=== PATIENT | male | born 1970 | race Caucasian/White ===

== ENCOUNTER 2017-04-21 08:33 | Emergency (ER) | payer MEDICARE ==
[2015-10-31 09:02] VITALS: BMI 22.1
[~2017-04-21 08:33] MED LIST: CELEBREX200 MG PO; COMBIVENT RESPIM4 GM INH; DURAGESIC1 PATCH .2 TRANSDERM; DURAGESIC1 PATCH .3 TRANSDERM; EFFEXOR XR150 MG PO; FLAGYL500 MG PO; IPRAT-ALBUT 0.5-3 ML UPD; LEVAQUIN750 MG PO; LISINOPRIL10 MG PO; METHOTREXATE2.5 MG PO; ROXICODONE30 MG PO; SOMA350 MG PO; STERAPRED DS 1010 MG PO; ZYPREXA5 MG PO
[2017-04-21 09:31] LABS: BASOPHILS 0.5 % (0-2); EOSINOPHILS 3.5 % (0-7); HEMATOCRIT 44.8 % (42.0-54.0); HEMOGLOBIN 15.1 g/dL (13.5-17.5); IMMATURE GRANULOCYTES 0.7 % (0-5); LYMPHOCYTES 26.5 % (15-50); MCH 32.9 pg (26.0-34.0); MCHC 33.7 g/dL (31.0-37.0); MCV 97.6 fL (80.0-100.0); MEAN PLATELET VOLUME 9.8 fL (7.4-10.4); MONOCYTES 9.6 % (2-11); NEUTROPHILS 59.2 % (40-80); RBC 4.59 10x6/uL (4.20-6.10); RDW 14.4 % (11.5-14.5); WBC 9.2 10x3/uL (4.8-10.8)
[2017-04-21 09:34] LABS: PLATELET COUNT 199 10x3/uL (130-400)
[2017-04-21 09:54] LABS: ALBUMIN 2.6 g/dL (3.4-5.0); BILIRUBIN - TOTAL 0.3 mg/dL (0.2-1.3); CALCIUM 7.8 mg/dL (8.5-10.1); CARBON DIOXIDE 17.5 mmol/L (21.0-32.0); CREATININE - SERUM 1.7 mg/dL (0.6-1.3); POTASSIUM - SERUM 3.5 mmol/L (3.5-5.1); PROTEIN - SERUM 6.2 g/dL (6.4-8.2)
[2017-04-21 10:46] LABS: APPEARANCE HAZY (CLEAR); BILIRUBIN NEGATIVE (NEGATIVE); COLOR YELLOW (YELLOW); GLUCOSE NEGATIVE (NEGATIVE); KETONE SMALL mg/dL (NEGATIVE); LEUKOCYTE ESTERASE TRACE (NEGATIVE); NITRITE NEGATIVE (NEGATIVE); PROTEIN NEGATIVE (NEGATIVE); UROBILINOGEN NORMAL (NORMAL)
[2017-04-21 10:52] LABS: AMORPHOUS SEDIMENT <1+ /lpf (NONE SEEN); BACTERIA MANY /hpf (NONE SEEN); EPITHELIAL CELLS 0-5 /hpf (0-5); GRANULAR CAST 0-5 /lpf (NONE SEEN); MUCUS >1+ /lpf (NONE SEEN)
[2017-04-21 10:53] LABS: UDS - AMPHET NEGATIVE QUAL (NEGATIVE); UDS - BARB NEGATIVE QUAL (NEGATIVE); UDS - BENZO NEGATIVE QUAL (NEGATIVE); UDS - COCAINE NEGATIVE QUAL (NEGATIVE); UDS - METH NEGATIVE QUAL (NEGATIVE); UDS - OPIATE NEGATIVE QUAL (NEGATIVE); UDS - PCP NEGATIVE QUAL (NEGATIVE); UDS - THC NEGATIVE QUAL (NEGATIVE); WAXY CAST RARE /lpf (NONE SEEN)
== END 2017-04-21 12:43 | disposition home or self-care (01) ==
LOC: D.ER 08:33
PROVIDERS: Emergency Medicine; Physician Assistant Medical
DX: K52.9 Noninfective gastroenteritis and colitis, unspecified (principal); R19.7 Diarrhea, unspecified; R10.9 Unspecified abdominal pain; R11.2 Nausea with vomiting, unspecified; F17.200 Nicotine dependence, unspecified, uncomplicated

== ENCOUNTER 2017-04-24 10:38 | Inpatient (IN) | payer MEDICARE ==
[2017-04-24] VITALS (21 sets, daily range): BP systolic 74–116; BP diastolic 52–88; BMI 21.2
[~2017-04-24] VITALS: Ht 190.5 cm; Wt 63.6 kg
--- NOTE | ~2017-04-24 | EC ---
PATIENT:VISH PRASAD DATE OF SERVICE: 04/24/17 SEX: M MEDICAL RECORD: [id number] DATE OF : [birth year] LOCATION:D. D.212 AGE OF PATIENT: 47 ADMISSION DATE: 04/24/17 REFERRING PHYSICIAN: INTERPRETING PHYSICIAN: BERYL WEEKS MD ECHOCARDIOGRAM REPORT ECHO CHARGES 4 ECHO COMPLETE CLINICAL DIAGNOSIS: CHF ? ECHOCARDIOGRAPHIC MEASUREMENTS (adult normal given) AC root (d.<3.7cm) 3.9 cm LV Septum d (<1.2 cm> 0.9 cm Valve Excursion 2.4 cm LV Septum (systole) 1.4 cm Left Atria (s.<4.0cm> 3.9 cm LVPW d(<1.2cm) 1.2 cm RV (d.<2.3cm) 2.9 cm LVPW (sytole) 2.0 cm LV diastole(<5.6CM) 7.6 cm MV E-F(>70mm/sec) cm LV systole 4.8 cm LVOT Diameter 2.3 cm MV exc.(>10mm) cm Est.ejection fraction (50-75%) % Pericardial Effusion N DOPPLER: LVIT cm/sec A 46.0 cm/sec E 98.0 cm/sec LA cm/sec RVSP 42.0 mmHg LVOT 96.0 cm/sec AOP1/2T m/s Asc. Ao 86.0 cm/sec RVOT 44.0 cm/sec RA cm/sec PA 49.0 cm/sec AV Gradient Peak 2.9 mmHg AV Mean 1.3 mmHg AV Area 3.9 cm MV Gradient Peak 3.6 mmHg MV Mean 1.3 mmHg MV Area cm COMMENTS: Youth Care Specialist: Cata REMYOE Pharmacy District Manager: 4 Dr. Weeks TAPE# PACS DATE OF SERVICE: 04/29/2017 PROCEDURE: Echocardiogram. FINDINGS: 1. The left ventricle has mild left ventricular hypertrophy. Inflow characteristics show pseudonormalization diastolic dysfunction. The overall ejection fraction is 35% to 40% with mild global hypokinesis. 2. The mitral valve shows eccentric mitral regurgitation that is in the moderate, possibly severe range. ECHOCARDIOGRAM REPORT [id number] VISH PRASAD 3. Tricuspid valve appears to be structurally normal, but there is moderate to severe tricuspid regurgitation. The RVSP is calculated between 40-50 mmHg indicating moderate pulmonary hypertension. 4. The right ventricle is tbii-ju-pcblmtvmuz dilated. 5. Aortic valve appears to possibly be bicuspid. There is no significant stenosis or regurgitation. 6. The IVC is shown to be normal in size and collapsing, indicating likely normal central venous pressures. The pericardium appears to be normal. The pulmonic valve is not well visualized. CONCLUSIONS: The patient has evidence of mild cardiomyopathy with a possible moderate to moderately severe mitral regurgitation that is eccentric in nature, mild to moderate pulmonary hypertension. TRANSINT:[id number] Voice Confirmation ID: [id number] DOCUMENT ID: [id number] 05/03/2017 Edited to correct date of service, dmm. BERYL WEEKS MD CC: [id number] DICTATION DATE: 04/30/17 0908 OUTSIDE MACHINIST APPRENTICE: 04/30/17 1130 ADM IN [facility] [address] [place] [address]
--- NOTE | ~2017-04-24 | CN ---
PATIENT NAME:VISH QUEVEDO MEDICAL RECORD: [id number] : 66 LOCATION:CAROLYNND.2308 ADMIT DATE: 04/24/17 ACCOUNT: [id number] CONSULTING PHYSICIAN: PALLAVI BOCANEGRA MD REFERRING PHYSICIAN: KERWIN HARTMAN MD DATE OF CONSULTATION: 04/28/2017 CONSULT REQUESTING PHYSICIAN: Reta Bacon MD. REASON FOR CONSULTATION: Bilateral pleural effusion, COPD. HISTORY OF PRESENT ILLNESS: Mr. Quevedo is a 47-year-old gentleman who has a history of rheumatoid arthritis, COPD and history of smoking, was admitted on the 24 of April with accidental overdose of narcotics. On arrival, the patient was hypotensive. He was also in metabolic acidosis and acute renal failure for which nephrology was consulted. He also had acute mental status changes, now more awake and alert. REVIEW OF SYSTEMS: Mainly in the history of present illness. PAST MEDICAL HISTORY: 1. COPD. 2. Rheumatoid arthritis. 3. Smoking, tobacco dependence. PAST SURGICAL HISTORY: Odontoid fracture fixation. ALLERGIES: HE IS ALLERGIC TO PENICILLIN. MEDICATIONS: He is on Levaquin, albuterol and ipratropium nebulizer. His other medications are reviewed. PERSONAL AND SOCIAL HISTORY: The patient is a current everyday smoker, almost 1 pack per day. He is a nondrinker. FAMILY HISTORY: Noncontributory. PHYSICAL EXAMINATION: GENERAL: The patient is lying comfortably in bed. He is not in acute distress. VITAL SIGNS: The blood pressure is 108/73, pulse is 98, respiration is 22-25, temperature 99.3 and SpO2 is 98% on 4 L nasal cannula. HEENT: Conjunctivae are pink, sclerae nonicteric. NECK: Supple. No JVD. CHEST: Excursion is minimal on both sides. Dullness on percussion at the bases. There are bilateral crackles. No wheezing. HEART: Rhythm regular, normal sound. No murmur. ABDOMEN: Soft. Bowel sounds present. No hepatosplenomegaly. RECTAL: Deferred. EXTREMITIES: No cyanosis, no clubbing, no pedal edema. SKIN: Warm, normal turgor. CENTRAL NERVOUS SYSTEM: The patient is awake and alert. There is no cranial nerve abnormality. IMAGING DATA: CT scan of the chest: There are bilateral infiltrates. There are emphysematous changes. There is also bilateral pulmonary fibrosis. CONSULT REPORT [id number] VISH QUEVEDO LABORAT[facility] DATA: CBC with WBC 8.5, hemoglobin 11.6, hematocrit 34.7 and the platelet count is 195. Chemistry: Sodium is 137, potassium is 3.3, BUN is 11 and creatinine 1.1. The ProBNP was 3891. ABG on admission: The pH was 7.27, pCO2 of 32.6, the pO2 was 75 and the bicarb was 15. IMPRESSION: 1. Acute hypoxic respiratory failure. 2. Chronic obstructive pulmonary disease, acute exacerbation. 3. Pulmonary fibrosis, most likely secondary to associated rheumatoid arthritis, possible methotrexate intake. The patient is not sure. 4. Congestive heart failure with elevated BNP, possible diastolic dysfunction. 5. History of hypertension. 6. Bilateral pleural effusions. 7. Acute renal failure. 8. Kidney stone. 9. Accidental narcotic overdose. 10. Metabolic acidosis. This had been improved. 11. Granulomatous disease, possible calcified granuloma associated with rheumatoid nodules, possible previous granulomatous disease. RECOMMENDATIONS: 1. Albuterol and ipratropium nebulizer. 2. Brovana and budesonide nebulizer. 3. Methylprednisolone IV. 4. The patient is going for the ureteric stent placement today. 5. We will diurese after the stent placement. 6. Proceed with thoracentesis in the morning. 7. Risk Officer to quit smoking. 8. Check the JOSE ANGEL and AUGUSTA level. Dr. Bacon, thank you for involving me in the care of Mr. Quevedo. Critical care time is 45 minutes. TRANSINT:[id number] Voice Confirmation ID: [id number] DOCUMENT ID: [id number] PALLAVI BOCANEGRA MD CC: RETA BACON MD [id number] DICTATION DATE: 04/28/17 1611 PERSONAL LINES APPRAISER: 04/28/171916 ADM IN [facility] [address] [place] [address]
[2017-04-24 12:02] LABS: BASOPHILS 0.5 % (0-2); EOSINOPHILS 7.3 % (0-7); HEMATOCRIT 34.3 % (42.0-54.0); HEMOGLOBIN 11.4 g/dL (13.5-17.5); IMMATURE GRANULOCYTES 0.3 % (0-5); LYMPHOCYTES 19.4 % (15-50); MCH 32.8 pg (26.0-34.0); MCHC 33.2 g/dL (31.0-37.0); MCV 98.6 fL (80.0-100.0); MONOCYTES 1.8 % (2-11); NEUTROPHILS 70.7 % (40-80); PLATELET COUNT 163 10x3/uL (130-400); RBC 3.48 10x6/uL (4.20-6.10); RDW 14.4 % (11.5-14.5)
[2017-04-24 12:19] LABS: ANION GAP 15.7 mmol/L (8-16); CALCIUM 7.4 mg/dL (8.5-10.1); CARBON DIOXIDE 19.6 mmol/L (21.0-32.0); CREATININE - SERUM 2.8 mg/dL (0.6-1.3); POTASSIUM - SERUM 3.3 mmol/L (3.5-5.1)
[2017-04-24 12:24] LABS: INR 1.31 (0.85-1.17); PROTIME 16.2 SECONDS (11.6-15.0)
[2017-04-24 13:29] LABS: UDS - AMPHET NEGATIVE QUAL (NEGATIVE); UDS - BARB NEGATIVE QUAL (NEGATIVE); UDS - BENZO NEGATIVE QUAL (NEGATIVE); UDS - COCAINE NEGATIVE QUAL (NEGATIVE); UDS - METH NEGATIVE QUAL (NEGATIVE); UDS - OPIATE POSITIVE QUAL (NEGATIVE); UDS - PCP NEGATIVE QUAL (NEGATIVE); UDS - THC NEGATIVE QUAL (NEGATIVE)
[2017-04-24 13:33] LABS: APPEARANCE CLOUDY (CLEAR); COLOR YELLOW (YELLOW)
[2017-04-24 13:34] LABS: AMORPHOUS SEDIMENT <1+ /lpf (NONE SEEN); BACTERIA MODERATE /hpf (NONE SEEN); BILIRUBIN NEGATIVE (NEGATIVE); GLUCOSE NEGATIVE (NEGATIVE); KETONE NEGATIVE (NEGATIVE); LEUKOCYTE ESTERASE TRACE (NEGATIVE); MUCUS <1+ /lpf (NONE SEEN); NITRITE NEGATIVE (NEGATIVE); PROTEIN TRACE mg/dL (NEGATIVE); SPECIFIC GRAVITY 1.015 (1.005-1.020); UROBILINOGEN NORMAL (NORMAL); WHITE CELLS - URINE 0-5 /hpf (0-5)
[2017-04-24 14:14] LABS: CKMB 4.2 U/L (0.0-3.6); MAGNESIUM - SERUM 1.2 mg/dL (1.8-2.4); PRO BNP 3891 pg/mL (0-125)
[2017-04-24 14:17] LABS: TROPONIN-I < 0.017 ng/mL (0.000-0.060)
--- NOTE | 2017-04-24 17:02 | NUR ---
REC'D PT TO ICU, PT AWAKE AND ORIENTED, DROWSY. BP 74/52, HR 104, 86% ON RA, O22LNC PLACED AND CALLED DR DWYER, DOPAMINE AT 2.7MCG/KG/MIN. INCREASED TO 5MCG/KG/MIN AND REPAGED DR DWYER. DR HARTMAN PAGED. DR HARTMAN IN ICU AT BS, 1 AMP NAHCO3 IVP GIVEN. BP 88/53. HR 112, LEVOPHED STARTED AT 2MCG/KG/MIN AND DOPAMINE DECREASED TO 8MCG/KG/MIN. SPO2 94% ON 2LNC. ALL ALARMS QAND MONITORING EQUIPMENT IN PLACE.
--- NOTE | 2017-04-24 19:10 | NUR ---
Received patient resting in bed with eyes closed, assessment completed per flowsheet. Patient AOx4, calm and cooperative. Patient states he "accidentally took extra pills because he couldn't remember if he took it already". Eyes PERRLA @ 3mm with brisk response, sclera is white. S1/S2 noted Sinus Tach on telemetry with HR 102, rhythmic and regular. Breathing is even and unlabored on 2L via NC with O2 sat 100%, Lung sounds clear bilateral upper with crackles noted mid and diminished lower. Abdomen is soft and flat with bowel sounds active x4, non-tender. Vila secured in place, concentrated yellow urine noted in collection. Full ROM all extremities with weakness noted, all pulses palpable with cap refill < 3 sec. PIV L wrist/R wrist/R AC 20g noted, Levophed @ 5mcg /Bicarb Drip @ 150ml / NS @ KVO (10ml) infusing. Patient denies pain or other needs at this time, all VSS and will continue to monitor.
--- NOTE | 2017-04-24 21:00 | NUR ---
No visitors at this time, all HS meds given without difficulty. Denies pain or other needs at this time, all VSS and will continue to monitor.
--- NOTE | 2017-04-24 23:05 | NUR ---
Reassessment completed per flowheet, patient resting in bed with eyes closed. S1/S2 noted Sinus Tach on telemetry with HR 104, rhythmic and regular. Breathing is even and unlabored on 2L via NC with O2 sat 99%. All pulses palpable with cap refill < 3 sec, weakness noted all extremities. Denies pain or other needs at this time, all VSS and will continue to monitor.
[2017-04-25] VITALS (36 sets, daily range): BP systolic 88–119; BP diastolic 58–77; Ht 190.5 cm; Wt 63.6 kg
--- NOTE | 2017-04-25 01:00 | NUR ---
Patient resting in bed with eyes closed, breathing is even and unlabored on 2L via NC. Patient denies pain or other needs at this time, all VSS and will continue to monitor.
--- NOTE | 2017-04-25 03:05 | NUR ---
Reassessment completed per flowsheet, patient resting in bed with eyes closed. Patient AO x4, calm and cooperative. S1/S2 noted Sinus Tach on telemetry with HR 108, rhythmic and regular. Breathing is even and unlabored on 2L via NC with O2 sat 99%. All pulses palpable with weakness noted all extremities, cap refill < 3 sec. Denies pain or other needs at this time, all VSS and will continue to monitor.
[2017-04-25 04:35] LABS: BASOPHILS 0.2 % (0-2); EOSINOPHILS 7.4 % (0-7); HEMATOCRIT 35.3 % (42.0-54.0); HEMOGLOBIN 11.9 g/dL (13.5-17.5); IMMATURE GRANULOCYTES 0.4 % (0-5); LYMPHOCYTES 15.8 % (15-50); MCH 32.4 pg (26.0-34.0); MCHC 33.7 g/dL (31.0-37.0); MEAN PLATELET VOLUME 10.2 fL (7.4-10.4); MONOCYTES 3.4 % (2-11); NEUTROPHILS 72.8 % (40-80); PLATELET COUNT 193 10x3/uL (130-400); RBC 3.67 10x6/uL (4.20-6.10); RDW 14.4 % (11.5-14.5)
[2017-04-25 04:37] LABS: MCV 96.2 fL (80.0-100.0); WBC 5.5 10x3/uL (4.8-10.8)
[2017-04-25 05:00] LABS: ALBUMIN 1.7 g/dL (3.4-5.0); BILIRUBIN - TOTAL 0.25 mg/dL (0.2-1.3); CARBON DIOXIDE 24.1 mmol/L (21.0-32.0); POTASSIUM - SERUM 3.1 mmol/L (3.5-5.1); PROTEIN - SERUM 4.2 g/dL (6.4-8.2)
--- NOTE | 2017-04-25 05:00 | NUR ---
AM labs returned, potassium replacement initiated. 40 meq PO given, will schedule redraw for 0900. Levophed drip paused, will D/C if SBP remains >100. No further needs at this time, all VSS and will continue to monitor.
[2017-04-25 05:01] LABS: CALCIUM 6.4 mg/dL (8.5-10.1)
--- NOTE | 2017-04-25 19:30 | NUR ---
REPORT RECIEVED, SHIFT ASSESSMENT COMPLETE, PT IS ALERT AND ORIENTED, ON 2L NC WITH 98% O2 SAT. LUNGS CLEAR IN B/L UPPER LOBES, DIMINISHED IN B/L LOWER LOBES, S1S2, CM-ST, PATENT RIGHT A/C PIV WITH NS INFUSING VIA PUMP, ABDOMEN IS SOFT AND ROUND WITH ACTIVE BS, PATENT F/C WITH CONCENTRATED UOP, ALL PPP, VSS, CALL LIGHT IN REACH
--- NOTE | 2017-04-25 23:20 | NUR ---
REASSESSMENT COMPLETE, NO CHANGES NOTED, PT RESTING AT THIS TIME, DENIES ANY NEEDS, VSS, CALL LIGHT IN REACH
[2017-04-26] VITALS (18 sets, daily range): BP systolic 94–148; BP diastolic 62–109
--- NOTE | 2017-04-26 01:00 | NUR ---
REPOSITIONED FOR COMFORT, WILL CON'T TO MONITOR
--- NOTE | 2017-04-26 03:08 | NUR ---
LG LIQUID BROWN BM, COMPLETE BATH AND LINEN CHANGE AT THIS TIME,
[2017-04-26 05:22] LABS: BASOPHILS 0.4 % (0-2); EOSINOPHILS 4.2 % (0-7); HEMATOCRIT 33.2 % (42.0-54.0); HEMOGLOBIN 11.3 g/dL (13.5-17.5); IMMATURE GRANULOCYTES 1.5 % (0-5); LYMPHOCYTES 13.4 % (15-50); MCH 32.2 pg (26.0-34.0); MCV 94.6 fL (80.0-100.0); MEAN PLATELET VOLUME 10.3 fL (7.4-10.4); MONOCYTES 6.2 % (2-11); NEUTROPHILS 74.3 % (40-80); RBC 3.51 10x6/uL (4.20-6.10); RDW 14.8 % (11.5-14.5)
[2017-04-26 05:26] LABS: PLATELET COUNT 244 10x3/uL (130-400); WBC 9.1 10x3/uL (4.8-10.8)
[2017-04-26 05:41] LABS: ALBUMIN 1.7 g/dL (3.4-5.0); ANION GAP 10.9 mmol/L (8-16); BILIRUBIN - TOTAL 0.43 mg/dL (0.2-1.3); CALCIUM 7.2 mg/dL (8.5-10.1); PROTEIN - SERUM 4.9 g/dL (6.4-8.2)
[2017-04-26 05:50] LABS: CREATININE - SERUM 1.4 mg/dL (0.6-1.3); POTASSIUM - SERUM 2.9 mmol/L (3.5-5.1)
--- NOTE | 2017-04-26 09:46 | NUR ---
NUTRITION MONITORING & EVAL CHART REVIEWED. PT SLEEPING. NO INTAKE MECH SOFT BREAKFAST. WILL CONTINUE TO PROVIDE DIET, MONITOR PO INTAKE. RD FOLLOWING
--- NOTE | 2017-04-26 14:45 | NUR ---
* Is the patient Alert and Oriented? Yes 0 * How many steps to enter\exit or inside your home? 0 0 * PCP Dr. Hameed 0 * Pharmacy [facility] 0 * Preadmission Environment Home with Family 0 * ADLs Independent 0 * List name and contact numbers for known caregivers / representatives who currently or will assist patient after discharge: Mother Jp Mata [phone] 0 * Additional services required to return to the preadmission environment? Yes 0 * Can the patient safely return to the preadmission environment? Yes 0 * Has this patient been hospitalized within the prior 30 days at any hospital? No Patient Name: VISH PRASAD Admission Status: ER Accout number: [id number] Admission Date: 04-24-2017 : 1970 Admission Diagnosis:POISONING BY OTH OPIOIDS, ACCIDENTAL (UNINTENTIONAL), I Attending: DALY Current LOS: 2 Planned Disposition: Home with Home Health Primary Insurance: MEDICARE A & B Discharge Planning Comments: CM met with patient to assess dc plans/needs. Patient states he lives at home with his mother. He reports he is independent with all ADL's, denies use of any DME or having home health services. Discussed home health services - he is agreeable to home health referral at discharge for medication management. LEXII signed for [facility]. CM will follow. Electric Serviceman: Eirca Chavez
[2017-04-26 15:20] LABS: BASOPHILS 0.3 % (0-2); EOSINOPHILS 2.6 % (0-7); HEMATOCRIT 32.6 % (42.0-54.0); HEMOGLOBIN 11.2 g/dL (13.5-17.5); IMMATURE GRANULOCYTES 0.3 % (0-5); LYMPHOCYTES 14.2 % (15-50); MCH 32.5 pg (26.0-34.0); MCHC 34.4 g/dL (31.0-37.0); MCV 94.5 fL (80.0-100.0); MEAN PLATELET VOLUME 9.9 fL (7.4-10.4); MONOCYTES 5.3 % (2-11); NEUTROPHILS 77.3 % (40-80); PLATELET COUNT 203 10x3/uL (130-400); RBC 3.45 10x6/uL (4.20-6.10); RDW 14.8 % (11.5-14.5); WBC 10.3 10x3/uL (4.8-10.8)
--- NOTE | 2017-04-26 19:30 | NUR ---
SHIFT ASSESSMENT COMPLETE. COMPLETE LINEN CHANGE AND PARTIAL BED BATH. BLOOD STOOLS WITH SEEDS NOTED. REDDENED AREA AROUND BUTTOCKS AND NICK AREA. NC @ 2 L/MIN. PT HAS PARTAIL TEETH, BLACK TEETH ON BOTTOM. MUCOUS MEMBRANES MOIST. SCAR NOTED BELOW THROAT. S1S2 AUDIBLE, HR 113, SINUS TACH VIA TELEMETRY. RR SHALLOW, CLEAR LUNG SOUNDS THROUGHOUT ALL LOBES. BS ACTIVE X4. SCAR NOTED ON LOWER ABD. PALMA CATH DRAINING CLEAR YELLOW URINE. SCD'S REMOVED AND SKIN ASSESSED, WNL. RADIAL AND PEDAL PULSES PALP. TOE NAILS THICK, YELLOW AND COMING OVER THE ENDS OF HIS TOES. R AC IV INFUSING NS @ 75 ML/HR. PT DENIES ANY PAIN AT THIS TIME. REQUESTS PUDDING. DELIVERED PUDDING VIA REQUEST. WILL CONT TO MONITOR.
--- NOTE | 2017-04-26 21:30 | NUR ---
PARTIAL LINEN CHANGE COMPLETE. PT STOOL IS LIQUID AND HAS SEEDS IN IT. HE STATES THAT HIS BUTTOCKS HURTS. KING'S BUTT PASTE APPLIED TO BUTTOCKS. BABY POWDER APPLIED AROUND NICK AREA. PT STATES THAT HE FEELS BETTER AT THIS TIME. STRAIGHTENED UP PT'S ROOM. CALL LIGHT IN REACH. WILL CONT TO MONITOR.
--- NOTE | 2017-04-26 22:37 | NUR ---
PARTIAL LINEN CHANGE AND BED BATH. CALL LIGHT IN REACH. WILL CONT TO MONITOR.
[2017-04-27] VITALS (15 sets, daily range): BP systolic 98–148; BP diastolic 71–105
--- NOTE | 2017-04-27 00:04 | NUR ---
ADMINISTERED PRN LABETALOL. BP 150/110 AND TRENDING UP. WILL CONT TO MONITOR.
--- NOTE | 2017-04-27 01:00 | NUR ---
PT RESTING PEACEFULLY AT THIS TIME. BP 154/103 AT THIS TIME, WITHIN PARAMETERS. NO ACUTE DISTRESS NOTED. WILL CONT TO MONITOR.
--- NOTE | 2017-04-27 03:00 | NUR ---
PT RESTING PEACEFULLY AT THIS TIME. NO SIGNS OF DISTRESS NOTED. VSS. WILL CONT TO MONITOR.
[2017-04-27 03:42] LABS: BASOPHILS 0.2 % (0-2); EOSINOPHILS 2.3 % (0-7); HEMATOCRIT 31.5 % (42.0-54.0); HEMOGLOBIN 10.8 g/dL (13.5-17.5); IMMATURE GRANULOCYTES 0.3 % (0-5); LYMPHOCYTES 14.3 % (15-50); MCH 32.3 pg (26.0-34.0); MCHC 34.3 g/dL (31.0-37.0); MCV 94.3 fL (80.0-100.0); MONOCYTES 7.7 % (2-11); NEUTROPHILS 75.2 % (40-80); PLATELET COUNT 196 10x3/uL (130-400); RBC 3.34 10x6/uL (4.20-6.10); RDW 14.8 % (11.5-14.5); WBC 9.3 10x3/uL (4.8-10.8)
[2017-04-27 03:52] LABS: ALBUMIN 1.7 g/dL (3.4-5.0); ALKALINE PHOSPHATASE 113 U/L (46-116); ALT (SGPT) 11 U/L (10-68); BILIRUBIN - TOTAL 0.66 mg/dL (0.2-1.3); CALCIUM 7.2 mg/dL (8.5-10.1); CARBON DIOXIDE 25.9 mmol/L (21.0-32.0); CHLORIDE - SERUM 104 mmol/L (98-107); GLUCOSE 84 mg/dL (74-106); PROTEIN - SERUM 4.9 g/dL (6.4-8.2); SODIUM 139 mmol/L (136-145)
[2017-04-27 03:53] LABS: CALC OSMOLALITY 276 mosm/kg (275-300); POTASSIUM - SERUM 2.5 mmol/L (3.5-5.1); UREA NITROGEN 12 mg/dL (7-18); eGFR NON AFRICAN AMERICAN 84 mL/min (90-120)
--- NOTE | 2017-04-27 05:00 | NUR ---
WASHED PT'S HAIR. PARTIAL LINEN CHANGE COMPLETE AT THIS TIME. BP 134/94 R ARM. 10 MEQ K+ RIDERS INFUSING @ 100 ML/HR. PT HAS NO REQUESTS AT THIS TIME. WILL CONT TO MONITOR.
--- NOTE | 2017-04-27 07:30 | NUR ---
REC'D REPORT ON PT - PT HAS PLANS TO TRANSFER TO FLOOR - PT RESTING WITH EYES CLOSED RESPIRATIONS REG RATE AND RHYTHM CPOC
--- NOTE | 2017-04-27 10:00 | NUR ---
[employer] CALLED TO ASK FOR PT TO BE NPO FOR UPCOMING CHEST CT SCAN - NOTED
--- NOTE | 2017-04-27 14:00 | NUR ---
PT TO BE TRANSFERRED TO BED 2129 - BATHED PT FOR TRANSFER.
--- NOTE | 2017-04-27 14:20 | NUR ---
PAGED DR. BACON TO INFORM OF PT'S CHANGE WITH MOVEMENT - PT'S HR UP TO 130s - TACHYCEPNIC - LUNG SOUND CORASE - TEMP 101. DR. BACON ORDERED CXR, LASIX 40MG/IV PUSH ONCE, UA, URINE C&S. BLOOD CULTURES. AWAITING RESULTS.
--- NOTE | 2017-04-27 15:00 | NUR ---
FAMIL AT BEDSIDE - ANSWERED ALL QUESTIONS - CPOC
[2017-04-27 15:33] LABS: APPEARANCE CLEAR (CLEAR); COLOR YELLOW (YELLOW); LEUKOCYTE ESTERASE TRACE (NEGATIVE); NITRITE NEGATIVE (NEGATIVE); PROTEIN NEGATIVE (NEGATIVE)
[2017-04-27 15:34] LABS: BILIRUBIN NEGATIVE (NEGATIVE); GLUCOSE NEGATIVE (NEGATIVE); KETONE MODERATE mg/dL (NEGATIVE); UROBILINOGEN NORMAL (NORMAL)
[2017-04-27 15:45] LABS: BACTERIA FEW /hpf (NONE SEEN); EPITHELIAL CELLS 0-5 /hpf (0-5); RED CELLS - URINE 25-50 /hpf (0-5); WHITE CELLS - URINE 0-5 /hpf (0-5)
--- NOTE | 2017-04-27 16:00 | NUR ---
UNABLE TO WEIGHT PT DUE TO NO BED SCALE - PT IS NOT ABLE TO STAND
--- NOTE | 2017-04-27 17:52 | NUR ---
INSURANCE EXECUTIVE CALLED FOR PT TO GO TO CT OF CHEST PT ON LAST IV POTASSIUM. VSS EXCEPT HR 130s. CONSULTED CRESTER - PT ABLE TO TRANSFER VIA BED TO CT.
--- NOTE | 2017-04-27 18:27 | NUR ---
CT SCAN COMPLETE - TRANSFERRED PT BACK TO ROOM - PT RESTING -
--- NOTE | 2017-04-27 20:10 | NUR ---
REPORT RECD PT CARE ASSUMED. PT IS ALERT AND ORIENTED. S1S2 NOTED, ST PER CM. PT HAS NC @ 4L. TACHYPNEA NOTED. FOELY IN PLACE, PPP. SEE SHIFT ASSESSMENT FOR FURTHER DETAILS.
--- NOTE | 2017-04-27 22:00 | NUR ---
PT RESTING QUITLEY IN BED. NO DISTESS NOTED. VS BASELINE. WILL MONITOR.
[2017-04-28] VITALS (24 sets, daily range): BP systolic 95–123; BP diastolic 59–89
--- NOTE | 2017-04-28 01:00 | NUR ---
PT RESTING COMFORTABLY. VSS. WILL MONITOR.
--- NOTE | 2017-04-28 03:00 | NUR ---
NO CHANGES PER REASSESS. VSS.
--- NOTE | 2017-04-28 04:20 | NUR ---
PALMA CARE PERFORMED AND STICKER APPLIED TO PALMA BAG
[2017-04-28 04:28] LABS: BASOPHILS 0.2 % (0-2); EOSINOPHILS 2.5 % (0-7); HEMATOCRIT 34.7 % (42.0-54.0); HEMOGLOBIN 11.6 g/dL (13.5-17.5); IMMATURE GRANULOCYTES 0.8 % (0-5); LYMPHOCYTES 20.9 % (15-50); MCH 31.9 pg (26.0-34.0); MCHC 33.4 g/dL (31.0-37.0); MCV 95.3 fL (80.0-100.0); MEAN PLATELET VOLUME 10.4 fL (7.4-10.4); MONOCYTES 15.9 % (2-11); NEUTROPHILS 59.7 % (40-80); PLATELET COUNT 195 10x3/uL (130-400); RBC 3.64 10x6/uL (4.20-6.10); WBC 8.5 10x3/uL (4.8-10.8)
[2017-04-28 04:44] LABS: ALBUMIN 1.7 g/dL (3.4-5.0); ALKALINE PHOSPHATASE 105 U/L (46-116); ALT (SGPT) 14 U/L (10-68); BILIRUBIN - TOTAL 0.91 mg/dL (0.2-1.3); CALC OSMOLALITY 271 mosm/kg (275-300); CALCIUM 6.9 mg/dL (8.5-10.1); CARBON DIOXIDE 28.7 mmol/L (21.0-32.0); CHLORIDE - SERUM 99 mmol/L (98-107); CREATININE - SERUM 1.1 mg/dL (0.6-1.3); GLUCOSE 78 mg/dL (74-106); PROTEIN - SERUM 5.2 g/dL (6.4-8.2); SODIUM 137 mmol/L (136-145); UREA NITROGEN 11 mg/dL (7-18); eGFR NON AFRICAN AMERICAN 75 mL/min (90-120)
--- NOTE | 2017-04-28 06:00 | NUR ---
PT RESTING IN BED, TURNING INDEPENDETLY NOW. VITAL SIGNS REMAIN AT BASELINE.
--- NOTE | 2017-04-28 07:40 | NUR ---
LYING IN BED RESTING AT THIS TIME. NO ACUTE DISTRESS NOTED. NOTED A SMEAR BM. TOTAL BED CHANGE PROVIDED WELL BED BATH PROVIDED. PT TURNED IN BED INDEPENDENTLY. PT NOW LYING IN BED, FOWLERS POSITION RESTING, RESPIRATIONS AT STEADY AND UNLABORED RATE. AWAKENS EASILY WHEN SPOKEN TO. WILL CONTINUE PLAN OF CARE.
--- NOTE | 2017-04-28 10:25 | NUR ---
RESTING IN BED AT THIS TIME, NO ACUTE DISTRESS NOTED. REPIRATIONS STILL IN THE MID 20S. OXYGEN SATURATION AT 96% WITH 4L NC. PT DENIES ANY NEEDS. AWAKENS EASILY WHEN SPOKEN TO. WILL CONTINUE PLAN OF CARE.
--- NOTE | 2017-04-28 11:30 | NUR ---
NOTED BLOOD PRESSURE TO STEADLY DECRESASE TO SYSTOLIC IN THE 90S ALONG WITH TACHYCARDIA OF 115 AND RESPIRATIONS IN THE MID 20S. DR BACON NOTIFIED AND IS ROUNDING ON PT AT THIS TIME. WILL CONTINUE PLAN OF CARE.
--- NOTE | 2017-04-28 12:03 | NUR ---
NOTIFIED DR WILLSON OF CONSULT, SPOKE WITH GHADA WHO STATED SHE WOULD RELAY THE MSG.
--- NOTE | 2017-04-28 15:18 | NUR ---
NOTED PT TO GO TO OR FOR CYSTOSCOPY, RIGHT UTERAL STENT INSERTION. PT HAS SIGNED ALL CONSENTS. ALL PREOP HAS BEEN COMPLETE. OR HAS TRANSFERRED PT TO OR AT THIS TIME VIA BED. PT DENIES ANY QUESTIONS OR CONCERNS AND STATES UNDERSTANDING OF PROCEDURE. ATTEMPTED TO CALL PTS MOTHER, SANYA, TO NOTIFY BUT DID NOT RECIEVE ANSWER AND WHEN ATTEMPTED TO LEAVE A VOICEMAIL NOTED THE VOICEMAIL BOX WAS EMPTY.
--- NOTE | 2017-04-28 16:05 | NUR ---
PT RETURNED TO UNIT FROM OR AT THIS TIME VIA BED. PT RESTING, NO ACUTE DISTRESS NOTED. VITAL SIGNS STABLE. PULSE RATE 115 SINUS TACH, BLOOD PRESSURE 97/72 WITH MAP 79. PALMA HAD BEEN REMOVED IN OR, STATED 1500ML KARINA URINE IN PALMA WHEN PALMA WAS DC. WILL CONTINUE PLAN OF CARE.
--- NOTE | 2017-04-28 16:26 | NUR ---
NOTED CONSULT FOR DR WEEKS FOR CHF, PAGED AT THIS TIME.
--- NOTE | 2017-04-28 17:00 | NUR ---
SPOKE WITH RADIOLOGY WHO STATED THORACENTESIS WILL BE PERFORMED TOMORROW.
--- NOTE | 2017-04-28 18:31 | NUR ---
FOWLERS POSITION IN BED EATING SUPPER. NO ACUTE DISTRESS NOTED. PT DENIES DISCOMFORT. WILL CONTINUE PLAN OF CARE.
--- NOTE | 2017-04-28 19:09 | NUR ---
SPOKE [place] [id number] TODAY VERSUS 3891 ON 04/24. ORDER NOTED TO GIVE 20MEQ LASIX NOW. WILL PLACE ORDER.
--- NOTE | 2017-04-28 20:15 | NUR ---
AWAKE AND ALERT. DENIES NEEDS. VOIDS I9N URINAL. URINE IS KARINA. ST PER CM. PT REPORTS THAT THIS IS HIS NORMAL HR. LARGE LIQUID BM. PT CLEANED UP AND BEDLINEN CHANGE AT SHIFT CHANGE.
--- NOTE | 2017-04-28 23:20 | NUR ---
PT REASSESSED. NO CHANGES. VS REMAIN STABLE WITH SINUS TACH SHOWING ON THE MONITOR. PT REPORTING THAT THIS IS HIS NORMAL RATE. DENIES NEEDS. PAIN MEDS ARE WORKING WELL. PT STATES TOTAL RELIEF.
[2017-04-29] VITALS (24 sets, daily range): BP systolic 101–131; BP diastolic 69–100
--- NOTE | 2017-04-29 03:30 | NUR ---
PT SLEEPING. AWAKENS EASILY. REPORTS PAIN MEDS ARE WORKING. NO CHANGES IN ASSESS
[2017-04-29 04:43] LABS: BASOPHILS 0.3 % (0-2); EOSINOPHILS 0 % (0-7); HEMATOCRIT 35.7 % (42.0-54.0); IMMATURE GRANULOCYTES 1.2 % (0-5); LYMPHOCYTES 13.7 % (15-50); MCH 31.9 pg (26.0-34.0); MCHC 33.6 g/dL (31.0-37.0); MCV 94.9 fL (80.0-100.0); MEAN PLATELET VOLUME 10.7 fL (7.4-10.4); MONOCYTES 6.3 % (2-11); NEUTROPHILS 78.5 % (40-80); PLATELET COUNT 219 10x3/uL (130-400); RBC 3.76 10x6/uL (4.20-6.10); RDW 15.1 % (11.5-14.5)
[2017-04-29 04:44] LABS: WBC 3.4 10x3/uL (4.8-10.8)
[2017-04-29 05:20] LABS: ALBUMIN 1.8 g/dL (3.4-5.0); ALKALINE PHOSPHATASE 100 U/L (46-116); ALT (SGPT) 16 U/L (10-68); BILIRUBIN - TOTAL 0.81 mg/dL (0.2-1.3); CALC OSMOLALITY 267 mosm/kg (275-300); CARBON DIOXIDE 22.2 mmol/L (21.0-32.0); CHLORIDE - SERUM 94 mmol/L (98-107); GLUCOSE 132 mg/dL (74-106); POTASSIUM - SERUM 3.9 mmol/L (3.5-5.1); PROTEIN - SERUM 5.7 g/dL (6.4-8.2); SODIUM 133 mmol/L (136-145); UREA NITROGEN 12 mg/dL (7-18); eGFR NON AFRICAN AMERICAN 84 mL/min (90-120)
[2017-04-29 05:21] LABS: CALCIUM 6.9 mg/dL (8.5-10.1)
--- NOTE | 2017-04-29 05:30 | NUR ---
I&O COMLPETED. DENIES PAIN. NO CHANGES
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
[2017-04-29 07:45] LABS: APTT 35.2 SECONDS (22.8-39.4); INR 1.15 (0.85-1.17); PROTIME 14.6 SECONDS (11.6-15.0)
--- NOTE | 2017-04-29 09:00 | NUR ---
PT SITTING UP IN BED AND ATE BREAKFAST INDEPENDENTLY WITHOUT DIFFICULTY. ABLE TO TAKE MORNING MEDS. WILL CONTINUE TO MONITOR.
--- NOTE | 2017-04-29 10:20 | NUR ---
NUTRITION MONITORING & EVAL CHART REVIEWED, PT VISIT. TOLERATING REG DIET BUT INTAKE POOR THIS AM. WILL CONTINUE TO ENCOURAGE PO INTAKE. RD FOLLOWING
--- NOTE | 2017-04-29 11:15 | NUR ---
CONSENT SIGNED BY PT FOR CT GUIDED THORACENTESIS WITH MODERATE SEDATION. PROCEDURE SCHEDULED FOR THIS AFTERNOON. NO ACUTE CHANGES IN PT STATUS AT THIS TIME.
--- NOTE | 2017-04-29 12:58 | NUR ---
DR RODRÍGUEZ CANCELLED THORACENTESIS TODAY BECAUSE HE STATES THAT LUNGS ARE IMPROVING. PT NOTIFIED. WILL GIVE LUNCH TRAY.
--- NOTE | 2017-04-29 15:02 | NUR ---
PT HAD SOME URINE ON GOWN. LINEN CHANGE COMPLETE AND HELPED PT TO REPOSITION SELF IN BED. STATES HE IS MORE COMFORTABLE. NO FURTHER CHANGES AT THIS TIME. WILL CONTINUE TO MONITOR
--- NOTE | 2017-04-29 17:03 | NUR ---
PT SITTING UP EATING DINNER INDEPENDENTLY. REPOSITIONED IN BED WITH MINIMAL ASSISTANCE. O2 DECREASED TO 4L AND O2 SAT STABLE. WILL CONTINUE TO WEAN TOLERATED. VITAL SIGNS STABLE. WILL CONTINUE TO MONITOR
--- NOTE | 2017-04-29 19:20 | NUR ---
AWAKE AND ALERT. C/O GENERALIZED PAIN. VSS. DENIES NEEDS
--- NOTE | 2017-04-29 21:10 | NUR ---
SLEEPING. AWAKENS EASILY. STATES THAT PAIN MEDS EFFECTIVE.
--- NOTE | 2017-04-29 23:20 | NUR ---
REASSESSMENT COMPLETED. NO CHANGES. VSS. DENIES PAIN. DENIES NEEDS
[2017-04-30] VITALS (10 sets, daily range): BP systolic 96–129; BP diastolic 62–95
--- NOTE | 2017-04-30 01:10 | NUR ---
NO CHANGES. RESTING QUIETLY
--- NOTE | 2017-04-30 04:06 | NUR ---
REPOSITIONED LIGHTS OFF AFTER ASSESSMENT COMPLETED. NO CHANGES
[2017-04-30 04:24] LABS: BASOPHILS 0.2 % (0-2); EOSINOPHILS 0 % (0-7); HEMATOCRIT 33.8 % (42.0-54.0); HEMOGLOBIN 11.5 g/dL (13.5-17.5); IMMATURE GRANULOCYTES 0.8 % (0-5); LYMPHOCYTES 17.4 % (15-50); MCH 31.9 pg (26.0-34.0); MCV 93.9 fL (80.0-100.0); MEAN PLATELET VOLUME 10.8 fL (7.4-10.4); MONOCYTES 13.4 % (2-11); NEUTROPHILS 68.2 % (40-80); PLATELET COUNT 212 10x3/uL (130-400); RDW 14.8 % (11.5-14.5)
[2017-04-30 04:25] LABS: WBC 5.1 10x3/uL (4.8-10.8)
[2017-04-30 04:34] LABS: CHLORIDE - SERUM 101 mmol/L (98-107); SODIUM 137 mmol/L (136-145); eGFR NON AFRICAN AMERICAN 84 mL/min (90-120)
[2017-04-30 04:40] LABS: CALC OSMOLALITY 281 mosm/kg (275-300); CARBON DIOXIDE 28.4 mmol/L (21.0-32.0); GLUCOSE 184 mg/dL (74-106); POTASSIUM - SERUM 3.1 mmol/L (3.5-5.1); UREA NITROGEN 20 mg/dL (7-18)
[2017-04-30 04:41] LABS: CALCIUM 6.7 mg/dL (8.5-10.1)
--- NOTE | 2017-04-30 05:00 | NUR ---
RESTING QUIETLY. VSS. AWAKENS EASILY. DENIES NEEDS
--- NOTE | 2017-04-30 07:00 | NUR ---
PT AWAKE ALERT AND ORIENTED X4 AND FOLLOWS COMMANDS. COMPLAINS OF DISCOMFORT IN BED, REPOSITIONED AND PT STATES THAT HE IS NOW COMFORTABLE. COMPLETE SHIFT ASSESSMENT DOCUMENTED PER FLOWSHEET. PT ENCOURAGED TO USE IS AND STATES THAT HE IS HAVING COUGHING AND IT IS PRODUCTIVE WITH CLEAR SPUTUM. VITAL SIGNS STABLE.
[2017-04-30 07:01] LABS: MAGNESIUM - SERUM 1.4 mg/dL (1.8-2.4)
--- NOTE | 2017-04-30 09:00 | NUR ---
PT REPOSITIONED IN BED PER REQUEST. SAT UP AND ATE BREAKFAST INDPENDENTLY. USING URINAL NEEDED. O2 AT 2L AND PT STILL TOLERATING. VITAL SIGNS STABLE. WILL MONITOR CLOSELY
[2017-04-30 10:18] LABS: ANA REFLEX - DIRECT Negative (Negative)
--- NOTE | 2017-04-30 11:00 | NUR ---
SPOKE WITH DR ARIAS AND DR RODRÍGUEZ AFTER THEIR ROUNDS ON PT AND BOTH STATE THAT PT IS STABLE TO TRANSFER TO FLOOR. WILL PUT TRANSFER ORDERS IN COMPUTER. PT NOTIFIED OF TRANSFER. VITAL SIGNS STABLE. WILL CONTINUE TO MONITOR
--- NOTE | 2017-04-30 13:15 | NUR ---
REPORT CALLED TO JASON. WILL TRANSFER PT TO [facility] 2 ROOM 2124.
--- NOTE | 2017-04-30 15:30 | NUR ---
REPORT CALLED TO JASON. PT TRANSFERRED VIA BED WITH BELONGINGS AT BEDSIDE. SET UP IN ROOM ON 2L NC, FLUIDS STARTED. CALL LIGHT WITHIN REACH. DENIES FURTHER NEEDS AT THIS TIME
--- NOTE | 2017-04-30 15:32 | NUR ---
RECIVED FROM ICU PER BED TO ROOM 2124. WITHOUT DISTRESS NOTED.
--- NOTE | 2017-04-30 17:56 | NUR ---
WITHOUT CHANGES OR DISTRESS NOTED AT THIS TIME. DENIES NEEDS.
--- NOTE | 2017-04-30 19:46 | NUR ---
RECEIVED REPORT,WILL ASSUME CARE OF PT, PT IS BEDFAST, BED IS LOW, SRX2, CALL LIGHT IN REACH, WILL CONTINUE TO MONITOR
--- NOTE | 2017-04-30 22:34 | NUR ---
K+ was 3.2, GAVE 40MEQ ORDER
[2017-05-01 04:00] VITALS: BP 113/80
--- NOTE | 2017-05-01 05:00 | NUR ---
PT RESTING IN BED WITH NO DISTRESS. CONTINUE TO MONITOR AND IMPLEMENT PLAN OF CARE.
[2017-05-01 07:11] LABS: BASOPHILS 0 % (0-2); EOSINOPHILS 0 % (0-7); HEMATOCRIT 33.4 % (42.0-54.0); HEMOGLOBIN 11.5 g/dL (13.5-17.5); IMMATURE GRANULOCYTES 0.8 % (0-5); LYMPHOCYTES 9.5 % (15-50); MCH 32.4 pg (26.0-34.0); MCHC 34.4 g/dL (31.0-37.0); MCV 94.1 fL (80.0-100.0); MEAN PLATELET VOLUME 10.8 fL (7.4-10.4); MONOCYTES 10.9 % (2-11); NEUTROPHILS 78.8 % (40-80); PLATELET COUNT 221 10x3/uL (130-400); RBC 3.55 10x6/uL (4.20-6.10); RDW 15.4 % (11.5-14.5)
[2017-05-01 07:18] LABS: WBC 6.5 10x3/uL (4.8-10.8)
[2017-05-01 07:36] LABS: CALC OSMOLALITY 283 mosm/kg (275-300); CARBON DIOXIDE 27.2 mmol/L (21.0-32.0); CHLORIDE - SERUM 106 mmol/L (98-107); GLUCOSE 144 mg/dL (74-106); MAGNESIUM - SERUM 1.5 mg/dL (1.8-2.4); SODIUM 140 mmol/L (136-145); UREA NITROGEN 19 mg/dL (7-18)
--- NOTE | 2017-05-01 07:43 | NUR ---
PT SITTING UP IN BED WATCHING TV DENIES NEEDS AT THIS TIME WILL CONT TO MONITOR
[2017-05-01 08:00] VITALS: BP 137/95
[2017-05-01 08:14] LABS: CALCIUM 6.7 mg/dL (8.5-10.1); CREATININE - SERUM 0.7 mg/dL (0.6-1.3); PHOSPHOROUS 1.8 mg/dL (2.5-4.9); POTASSIUM - SERUM 4.1 mmol/L (3.5-5.1); eGFR NON AFRICAN AMERICAN > 90 mL/min (90-120)
[2017-05-01 10:19] LABS: ANGIOTENSIN CONVERTING ENZYME 34 U/L (14-82)
[2017-05-01 11:46] VITALS: BP 126/81
--- NOTE | 2017-05-01 14:21 | NUR ---
PT GIVEN SCHEDULED PAIN MEDICATION FOR PAIN 04/25 GENERALIZED. PT DENIES ANY OTHER NEEDS
[2017-05-01 15:23] VITALS: BP 121/86
--- NOTE | 2017-05-01 17:40 | NUR ---
RECEIVED REPORT, WILL ASSUME CARE OF PT, PT SLEEPING , BED IS LOW, SRX2, CALL LIGHT IN REACH, WILL CONTINUE PLAN OF CARE
[2017-05-01 20:02] VITALS: BP 113/76
[2017-05-02 00:35] VITALS: BP 113/76
--- NOTE | 2017-05-02 04:30 | NUR ---
FLOORWORKER DISTRIBUTOR AT BEDSIDE TO OBTAIN VITALS, CALL LIGHT IN REACH. WILL CONTINUE TO MONITOR.
--- NOTE | 2017-05-02 04:57 | NUR ---
ASSESSMENT COMPLETE, SEE FLOWSHEET, BED IS LOW, SRX2, BED ALARM IS ON, SCD ARE ON, CALL LIGHT IN REACH, WILL CONTINUE TO MONITOR
[2017-05-02 05:38] VITALS: BP 138/96
[2017-05-02 05:46] LABS: BASOPHILS 0 % (0-2); EOSINOPHILS 0 % (0-7); HEMATOCRIT 31.8 % (42.0-54.0); HEMOGLOBIN 10.7 g/dL (13.5-17.5); IMMATURE GRANULOCYTES 0.7 % (0-5); LYMPHOCYTES 12.5 % (15-50); MCH 32.4 pg (26.0-34.0); MCHC 33.6 g/dL (31.0-37.0); MEAN PLATELET VOLUME 10.5 fL (7.4-10.4); MONOCYTES 6.5 % (2-11); NEUTROPHILS 80.3 % (40-80); PLATELET COUNT 216 10x3/uL (130-400); RDW 15.8 % (11.5-14.5)
[2017-05-02 05:55] LABS: MCV 96.4 fL (80.0-100.0)
[2017-05-02 06:01] LABS: CALC OSMOLALITY 284 mosm/kg (275-300); CALCIUM 7.2 mg/dL (8.5-10.1); CARBON DIOXIDE 28.5 mmol/L (21.0-32.0); CHLORIDE - SERUM 107 mmol/L (98-107); CREATININE - SERUM 0.7 mg/dL (0.6-1.3); GLUCOSE 133 mg/dL (74-106); POTASSIUM - SERUM 4.6 mmol/L (3.5-5.1); SODIUM 141 mmol/L (136-145); UREA NITROGEN 17 mg/dL (7-18); eGFR NON AFRICAN AMERICAN > 90 mL/min (90-120)
--- NOTE | 2017-05-02 07:26 | NUR ---
PT SITTING UP IN BED SLEEPING NO S/S DISTRESS NOTED RR EVEN AND UNLABORED WILL CONT TO MONITOR
[2017-05-02 08:00] VITALS: BP 124/94
--- NOTE | 2017-05-02 10:12 | NUR ---
PT PIV IS INFILTRATED IN R FA DC WITH CATH TIP INTACT.
[2017-05-02 12:00] VITALS: BP 114/76
--- NOTE | 2017-05-02 12:13 | NUR ---
PT LAYING IN BED TO R SIDE SLEEPING NO S/S DISTRESS NOTED RR EVEN AND UNLABORED WILL CONT TO MONITOR
--- NOTE | 2017-05-02 14:45 | NUR ---
PHYSICAL THERAPY WORKED WITH PT AND SAID THAT PT CAN WALK. PT HAS TOLD STAFF THAT HE NEEDS THE BED MEZA TO GO TO THE BATHROOM AND THAT HE COULD TRANSFER TO A WHEELCHAIR. WILL TAKE NOTE THAT PT CAN INDEED WALK AND MAKE OTHER STAFF AWARE THAT PT IS AN ASSIST PATIENT.
--- NOTE | 2017-05-02 15:26 | NUR ---
PT SITTING UP IN BED WATCHING TV REQUESTS WATER, DENIES OTHER NEEDS. GIVEN. WILL CONT TO MONITOR
[2017-05-02 16:00] VITALS: BP 122/86
--- NOTE | 2017-05-02 18:44 | NUR ---
PT SITTING UP IN BED WATCHING TV DENIES NEEDS
[2017-05-02 19:00] VITALS: BP 106/78
[2017-05-03] VITALS: BP 123/73
[2017-05-03 04:00] VITALS: BP 134/92
[2017-05-03 06:38] LABS: BASOPHILS 0.2 % (0-2); EOSINOPHILS 0.3 % (0-7); HEMATOCRIT 36.5 % (42.0-54.0); HEMOGLOBIN 11.7 g/dL (13.5-17.5); IMMATURE GRANULOCYTES 0.8 % (0-5); LYMPHOCYTES 16.4 % (15-50); MCH 32.1 pg (26.0-34.0); MCHC 32.1 g/dL (31.0-37.0); MEAN PLATELET VOLUME 11.3 fL (7.4-10.4); MONOCYTES 5.7 % (2-11); NEUTROPHILS 76.6 % (40-80); RBC 3.65 10x6/uL (4.20-6.10); RDW 16.2 % (11.5-14.5)
[2017-05-03 06:41] LABS: PLATELET COUNT 161 10x3/uL (130-400); WBC 15.7 10x3/uL (4.8-10.8)
[2017-05-03 07:00] LABS: CALCIUM 7.6 mg/dL (8.5-10.1); CARBON DIOXIDE 24.3 mmol/L (21.0-32.0); CHLORIDE - SERUM 105 mmol/L (98-107); MAGNESIUM - SERUM 1.7 mg/dL (1.8-2.4); PHOSPHOROUS 1.7 mg/dL (2.5-4.9); SODIUM 136 mmol/L (136-145); UREA NITROGEN 17 mg/dL (7-18)
[2017-05-03 07:03] LABS: CALC OSMOLALITY 272 mosm/kg (275-300); CREATININE - SERUM 0.9 mg/dL (0.6-1.3); GLUCOSE 80 mg/dL (74-106); eGFR NON AFRICAN AMERICAN > 90 mL/min (90-120)
--- NOTE | 2017-05-03 07:15 | NUR ---
PT SITTING UP IN BED WATCHING TV DENIES NEEDS WILL CONT TO MONITOR
[2017-05-03 08:25] VITALS: BP 152/104
[2017-05-03 12:04] VITALS: BP 122/71
[2017-05-03] MEDS ORDERED: TOPROL XL25 MG PO (12:57)
[2017-05-03] MEDS ORDERED: ALBUTEROL2.5 MG/3 M UPD (12:57)
[2017-05-03] MEDS ORDERED: MUCINEX DM ER1 EAC1 PO (12:57)
[2017-05-03] MEDS ORDERED: PREDNISONE10 MG PO (12:57)
[2017-05-03] MEDS ORDERED: SINGULAIR10 MG PO (12:57)
[2017-05-03] MEDS ORDERED: MAG-OX 400 MG400 MG PO (13:08)
[2017-05-03 14:30] VITALS: BP 99/72
--- NOTE | 2017-05-03 15:43 | NUR ---
PT O2 LEVEL ON RA IS 87% RESTING. APPLIED 2L NC OXYGEN O2 SAT BACK UP TO 90%
--- NOTE | 2017-05-03 17:15 | NUR ---
WENT OVER DC INSTRUCTIONS WITH PT AND PT VERBALIZES UNDERSTANDING. DC PIV WITH CATH TIP INTACT. PT MOM HERE TO GET HIM AND PT WAS WHEELED OUT TO FRONT ENTRANCE VIA POLICY ADVISER
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
== END 2017-05-03 17:17 | disposition home or self-care (01) | DRG 917 ==
LOC: D.ER 10:38 → D.M2 14:52 → D.ICU 14:52 → D.M2 04-30 15:15
PROVIDERS: Emergency Medicine; Family Medicine; Internal Medicine Pulmonary Disease; Nurse Practitioner Family; Radiology Diagnostic Radiology; ADMIT Family Medicine
PROC: 0T9B70Z Drainage of Bladder with Drainage Device, Via Natural or Artificial Opening (ICD-10-PCS; principal; 2017-04-24)
PROC: 0T768DZ Dilation of Right Ureter with Intraluminal Device, Via Natural or Artificial Opening Endoscopic (ICD-10-PCS; 2017-04-28)
DX: T40.2X1A Poisoning by other opioids, accidental (unintentional), initial encounter (principal); J96.01 Acute respiratory failure with hypoxia; I50.43 Acute on chronic combined systolic (congestive) and diastolic (congestive) heart failure; N17.9 Acute kidney failure, unspecified; E87.2 Acidosis; N39.0 Urinary tract infection, site not specified; J44.1 Chronic obstructive pulmonary disease with (acute) exacerbation; I95.9 Hypotension, unspecified; E87.6 Hypokalemia; F10.20 Alcohol dependence, uncomplicated; D72.819 Decreased white blood cell count, unspecified; D64.9 Anemia, unspecified; E83.42 Hypomagnesemia; R91.8 Other nonspecific abnormal finding of lung field; R00.0 Tachycardia, unspecified; J84.10 Pulmonary fibrosis, unspecified; I11.0 Hypertensive heart disease with heart failure; M06.9 Rheumatoid arthritis, unspecified; N20.0 Calculus of kidney; I27.2 Other secondary pulmonary hypertension

== ENCOUNTER 2017-05-08 22:00 | Emergency (ER) | payer MEDICARE ==
[2017-04-25 09:52] VITALS: BMI 21.2
[~2017-05-08 22:00] MED LIST changes: +ALBUTEROL2.5 MG/3 M UPD; +MAG-OX 400 MG400 MG PO; +MUCINEX DM ER1 EAC1 PO; +PREDNISONE10 MG PO; +SINGULAIR10 MG PO; +TOPROL XL25 MG PO
[2017-05-08 23:33] LABS: HEMATOCRIT 36.4 % (42.0-54.0); HEMOGLOBIN 12.2 g/dL (13.5-17.5); LYMPHOCYTES 14.4 % (15-50); MCH 31.9 pg (26.0-34.0); MCHC 33.5 g/dL (31.0-37.0); MCV 95.3 fL (80.0-100.0); MEAN PLATELET VOLUME 9.3 fL (7.4-10.4); NEUTROPHILS 67.7 % (40-80); RBC 3.82 10x6/uL (4.20-6.10); RDW 15.7 % (11.5-14.5); WBC 9.7 10x3/uL (4.8-10.8)
[2017-05-08 23:34] LABS: PLATELET COUNT 392 10x3/uL (130-400)
[2017-05-08 23:46] LABS: ALBUMIN 2.1 g/dL (3.4-5.0); ALKALINE PHOSPHATASE 195 U/L (46-116); ALT (SGPT) 19 U/L (10-68); CALC OSMOLALITY 262 mosm/kg (275-300); CALCIUM 7.5 mg/dL (8.5-10.1); CHLORIDE - SERUM 97 mmol/L (98-107); GLUCOSE 80 mg/dL (74-106); POTASSIUM - SERUM 3.5 mmol/L (3.5-5.1); PROTEIN - SERUM 5.9 g/dL (6.4-8.2); SODIUM 131 mmol/L (136-145); UREA NITROGEN 16 mg/dL (7-18); eGFR NON AFRICAN AMERICAN 84 mL/min (90-120)
[2017-05-09 00:44] LABS: APPEARANCE CLOUDY (CLEAR); BILIRUBIN NEGATIVE (NEGATIVE); COLOR YELLOW (YELLOW); GLUCOSE NEGATIVE (NEGATIVE); KETONE NEGATIVE (NEGATIVE); LEUKOCYTE ESTERASE 2+ (NEGATIVE); NITRITE NEGATIVE (NEGATIVE); PROTEIN 1+ mg/dL (NEGATIVE); SPECIFIC GRAVITY 1.015 (1.005-1.020); UROBILINOGEN NORMAL (NORMAL)
[2017-05-09 00:45] LABS: EPITHELIAL CELLS 0-5 /hpf (0-5)
[2017-05-09 00:46] LABS: BACTERIA MANY /hpf (NONE SEEN)
== END 2017-05-09 05:10 | disposition home or self-care (01) ==
LOC: D.ER 22:00
PROVIDERS: Emergency Medicine
DX: N39.0 Urinary tract infection, site not specified (principal); R50.9 Fever, unspecified; R05 Cough; R53.81 Other malaise; F17.200 Nicotine dependence, unspecified, uncomplicated

== ENCOUNTER → 2017-07-18 06:09 | Day surgery (SDC) | payer MEDICARE ==
[2017-04-25 09:52] VITALS: BMI 21.2
[2017-07-17 15:52] LABS: HEMATOCRIT 40.2 % (42.0-54.0); MCH 29.7 pg (26.0-34.0); MCHC 32.3 g/dL (31.0-37.0); MCV 91.8 fL (80.0-100.0); MEAN PLATELET VOLUME 9.7 fL (7.4-10.4); RBC 4.38 10x6/uL (4.20-6.10); RDW 15.6 % (11.5-14.5); WBC 13.8 10x3/uL (4.8-10.8)
[2017-07-17 16:44] LABS: ANION GAP 19.1 mmol/L (8-16); CALCIUM 9.3 mg/dL (8.5-10.1); CARBON DIOXIDE 25.8 mmol/L (21.0-32.0); CREATININE - SERUM 1.6 mg/dL (0.6-1.3); POTASSIUM - SERUM 3.9 mmol/L (3.5-5.1)
[~2017-07-18 06:09] MED LIST changes: +DIFLUCAN100 MG PO; +LEVAQUIN500 MG PO; +NICODERM C1 PATCH .1 TRANSDERM
== END | disposition home or self-care (01) ==
LOC: D.OPS 06:09 → D.PAN 12:00
PROVIDERS: Anesthesiology
DX: N20.0 Calculus of kidney (principal); Z01.810 Encounter for preprocedural cardiovascular examination; Z01.811 Encounter for preprocedural respiratory examination; Z01.812 Encounter for preprocedural laboratory examination; Z53.9 Procedure and treatment not carried out, unspecified reason

== ENCOUNTER 2017-09-16 12:51 | Inpatient (IN) | payer MEDICARE ==
[~2017-09-16] VITALS: Ht 167.6 cm; Wt 68.0 kg
--- NOTE | ~2017-09-16 | EC ---
PATIENT:VISH PRASAD DATE OF SERVICE: 09/17/17 SEX: M MEDICAL RECORD: [id number] DATE OF : [birth year] LOCATION:[facility] [place] AGE OF PATIENT: 47 ADMISSION DATE: 09/17/17 REFERRING PHYSICIAN: INTERPRETING PHYSICIAN: BERYL WEEKS MD ECHOCARDIOGRAM REPORT ECHO CHARGES 4 ECHO COMPLETE CLINICAL DIAGNOSIS: SVT ECHOCARDIOGRAPHIC MEASUREMENTS (adult normal given) AC root (d.<3.7cm) 4.5 cm LV Septum d (<1.2 cm> 1.4 cm Valve Excursion 2.0 cm LV Septum (systole) 1.7 cm Left Atria (s.<4.0cm> 4.4 cm LVPW d(<1.2cm) 1.5 cm RV (d.<2.3cm) 4.4 cm LVPW (sytole) 1.7 cm LV diastole(<5.6CM) 5.1 cm MV E-F(>70mm/sec) cm LV systole 3.7 cm LVOT Diameter 2.4 cm MV exc.(>10mm) 1.0 cm Est.ejection fraction (50-75%) % Pericardial Effusion N DOPPLER: LVIT cm/sec A 66.0 cm/sec E 43.0 cm/sec LA cm/sec RVSP 46 mmHg LVOT 67. cm/sec AOP1/2T m/s Asc. Ao 97 cm/sec RVOT 57 cm/sec RA cm/sec PA 114 cm/sec AV Gradient Peak 3.79 mmHg AV Mean 13.65mmHg AV Area 3.1 cm MV Gradient Peak 3.17 mmHg MV Mean 1.49 mmHg MV Area cm COMMENTS: Spot Welder Body Assembly: Adam KENYON Business Services Officer: 4 Dr. Weeks TAPE# PACS DATE OF SERVICE: 09/20/2017 PROCEDURE: Transthoracic echocardiogram. FINDINGS: 1. Left ventricle is not well visualized. There is suggestion of anterior hypokinesis, possibly global hypokinesis. Overall ejection fraction is 30% to 35%. Right ventricle is hyperdynamic with right ventricular hypertrophy. The mitral valve shows moderate mitral regurgitation and thickening. 2. The tricuspid valve has tricuspid regurgitation with RVSP that is 45-50 ECHOCARDIOGRAM REPORT [id number] VISH PRASAD mmHg. 3. The interatrial septum appears to be grossly intact. The mitral valve actually has gdkdlmzd-pi-bcyxuv eccentric mitral regurgitation. 4. The aortic valve is grossly normal. 5. The inflow characteristics are consistent with diastolic dysfunction versus elevation of left ventricular end-diastolic pressures. CONCLUSION: The patient has evidence of hypertensive heart disease as well as significant valvular abnormalities in the mitral valve with zzkehcox-af-jeaqpi eccentric mitral regurgitation. TRANSINT:[id number] Voice Confirmation ID: [id number] DOCUMENT ID: [id number] BERYL WEEKS MD at 1038 CC: [id number] DICTATION DATE: 09/24/17 0959 REAL ESTATE CLERK: 09/24/17 1056 DIS IN 09/20/17 [place] [address] [place] [address]
[~2017-09-16 12:51] MED LIST changes: -DIFLUCAN100 MG PO; -LEVAQUIN500 MG PO; -NICODERM C1 PATCH .1 TRANSDERM
[2017-09-16 14:01] LABS: UDS - AMPHET NEGATIVE QUAL (NEGATIVE); UDS - BARB NEGATIVE QUAL (NEGATIVE); UDS - BENZO POSITIVE QUAL (NEGATIVE); UDS - COCAINE NEGATIVE QUAL (NEGATIVE); UDS - OPIATE POSITIVE QUAL (NEGATIVE); UDS - PCP NEGATIVE QUAL (NEGATIVE); UDS - THC NEGATIVE QUAL (NEGATIVE)
[2017-09-16 14:03] LABS: APPEARANCE CLOUDY (CLEAR); BACTERIA MODERATE /hpf (NONE SEEN); BILIRUBIN NEGATIVE (NEGATIVE); COLOR YELLOW (YELLOW); EPITHELIAL CELLS 0-5 /hpf (0-5); GLUCOSE NEGATIVE (NEGATIVE); KETONE LARGE mg/dL (NEGATIVE); NITRITE POSITIVE (NEGATIVE); PROTEIN TRACE mg/dL (NEGATIVE); RED CELLS - URINE 0-5 /hpf (0-5); UROBILINOGEN NORMAL (NORMAL); WHITE CELLS - URINE >50 /hpf (0-5)
[2017-09-16 14:12] LABS: BASOPHILS 0.2 % (0-2); EOSINOPHILS 0.6 % (0-7); HEMATOCRIT 42.1 % (42.0-54.0); HEMOGLOBIN 13.9 g/dL (13.5-17.5); IMMATURE GRANULOCYTES 0.3 % (0-5); LYMPHOCYTES 10.7 % (15-50); MCH 30.7 pg (26.0-34.0); MCV 92.9 fL (80.0-100.0); MEAN PLATELET VOLUME 10.5 fL (7.4-10.4); MONOCYTES 11.3 % (2-11); NEUTROPHILS 76.9 % (40-80); PLATELET COUNT 214 10x3/uL (130-400); RBC 4.53 10x6/uL (4.20-6.10); RDW 16.2 % (11.5-14.5); WBC 17.7 10x3/uL (4.8-10.8)
[2017-09-16 14:52] LABS: ALKALINE PHOSPHATASE 169 U/L (46-116); ALT (SGPT) 22 U/L (10-68); BILIRUBIN - TOTAL 0.92 mg/dL (0.2-1.3); CALC OSMOLALITY 285 mosm/kg (275-300); CALCIUM 8.8 mg/dL (8.5-10.1); CARBON DIOXIDE 19.4 mmol/L (21.0-32.0); CHLORIDE - SERUM 103 mmol/L (98-107); CREATININE - SERUM 1.2 mg/dL (0.6-1.3); GLUCOSE 118 mg/dL (74-106); POTASSIUM - SERUM 3.6 mmol/L (3.5-5.1); PROTEIN - SERUM 6.2 g/dL (6.4-8.2); SODIUM 141 mmol/L (136-145); UREA NITROGEN 25 mg/dL (7-18); eGFR NON AFRICAN AMERICAN 68 mL/min (90-120)
[2017-09-16 15:13] LABS: CKMB 1.5 U/L (0.0-3.6); CREATINE KINASE 563 UL (21-232)
[2017-09-16 17:12] VITALS: BP 120/78; BMI 24.2
[2017-09-16 20:00] VITALS: BP 117/73
[2017-09-17] VITALS: BP 119/69
[2017-09-17 04:00] VITALS: BP 137/82
[2017-09-17 09:56] VITALS: BP 131/84
[2017-09-17 12:22] VITALS: Ht 167.6 cm; Wt 68.0 kg
[2017-09-17 12:47] VITALS: BP 135/95
[2017-09-17 16:13] VITALS: BP 132/80
[2017-09-17 20:00] VITALS: BP 132/89
[2017-09-18] VITALS: BP 130/76
[2017-09-18 05:53] VITALS: BP 137/84
[2017-09-18 06:12] LABS: BASOPHILS 0.4 % (0-2); EOSINOPHILS 6.5 % (0-7); IMMATURE GRANULOCYTES 0.3 % (0-5); LYMPHOCYTES 13.9 % (15-50); MCH 30.6 pg (26.0-34.0); MCHC 32.8 g/dL (31.0-37.0); MCV 93.1 fL (80.0-100.0); MEAN PLATELET VOLUME 10.3 fL (7.4-10.4); MONOCYTES 11.3 % (2-11); NEUTROPHILS 67.6 % (40-80); PLATELET COUNT 215 10x3/uL (130-400); RDW 16.5 % (11.5-14.5)
[2017-09-18 06:27] LABS: HEMATOCRIT 33.5 % (42.0-54.0); WBC 7.7 10x3/uL (4.8-10.8)
[2017-09-18 06:35] LABS: CALC OSMOLALITY 286 mosm/kg (275-300); CARBON DIOXIDE 18.5 mmol/L (21.0-32.0); CHLORIDE - SERUM 110 mmol/L (98-107); CREATININE - SERUM 0.9 mg/dL (0.6-1.3); GLUCOSE 72 mg/dL (74-106); POTASSIUM - SERUM 3.1 mmol/L (3.5-5.1); SODIUM 144 mmol/L (136-145); eGFR NON AFRICAN AMERICAN > 90 mL/min (90-120)
[2017-09-18 06:36] LABS: UREA NITROGEN 14 mg/dL (7-18)
[2017-09-18 08:07] VITALS: BP 133/87
[2017-09-18 16:08] VITALS: BP 141/89
[2017-09-18 20:00] VITALS: BP 143/63
[2017-09-19 05:23] LABS: BASOPHILS 0.4 % (0-2); EOSINOPHILS 7.1 % (0-7); HEMATOCRIT 33.5 % (42.0-54.0); HEMOGLOBIN 11.2 g/dL (13.5-17.5); IMMATURE GRANULOCYTES 0.4 % (0-5); LYMPHOCYTES 20.8 % (15-50); MCH 30.2 pg (26.0-34.0); MCHC 33.4 g/dL (31.0-37.0); MEAN PLATELET VOLUME 10.2 fL (7.4-10.4); MONOCYTES 12.6 % (2-11); NEUTROPHILS 58.7 % (40-80); PLATELET COUNT 217 10x3/uL (130-400); RBC 3.71 10x6/uL (4.20-6.10); RDW 16.4 % (11.5-14.5)
[2017-09-19 05:42] LABS: MCV 90.3 fL (80.0-100.0); WBC 5.5 10x3/uL (4.8-10.8)
[2017-09-19 06:43] LABS: CALCIUM 7.9 mg/dL (8.5-10.1); CARBON DIOXIDE 19.7 mmol/L (21.0-32.0); CHLORIDE - SERUM 110 mmol/L (98-107); GLUCOSE 80 mg/dL (74-106); SODIUM 143 mmol/L (136-145); eGFR NON AFRICAN AMERICAN 84 mL/min (90-120)
[2017-09-19 06:44] LABS: CALC OSMOLALITY 281 mosm/kg (275-300); UREA NITROGEN 8 mg/dL (7-18)
[2017-09-19 06:46] LABS: POTASSIUM - SERUM 2.6 mmol/L (3.5-5.1)
[2017-09-19 08:35] VITALS: BP 144/114
[2017-09-19 11:53] VITALS: BP 134/60
[2017-09-19 13:48] VITALS: BP 134/64
[2017-09-19 16:04] VITALS: BP 145/67
[2017-09-20 04:00] VITALS: BP 158/100
[2017-09-20 05:47] LABS: BASOPHILS 0.7 % (0-2); EOSINOPHILS 7.6 % (0-7); HEMATOCRIT 33.4 % (42.0-54.0); IMMATURE GRANULOCYTES 0.2 % (0-5); LYMPHOCYTES 32.8 % (15-50); MCH 30.2 pg (26.0-34.0); MCHC 32.9 g/dL (31.0-37.0); MCV 91.8 fL (80.0-100.0); MEAN PLATELET VOLUME 10.8 fL (7.4-10.4); MONOCYTES 11.1 % (2-11); NEUTROPHILS 47.6 % (40-80); PLATELET COUNT 228 10x3/uL (130-400); RBC 3.64 10x6/uL (4.20-6.10); RDW 16.5 % (11.5-14.5); WBC 4.6 10x3/uL (4.8-10.8)
[2017-09-20 06:23] LABS: CALCIUM 7.5 mg/dL (8.5-10.1); CARBON DIOXIDE 23.3 mmol/L (21.0-32.0); GLUCOSE 82 mg/dL (74-106); SODIUM 148 mmol/L (136-145); eGFR NON AFRICAN AMERICAN 84 mL/min (90-120)
[2017-09-20 06:34] LABS: CALC OSMOLALITY 289 mosm/kg (275-300); UREA NITROGEN 5 mg/dL (7-18)
[2017-09-20 06:35] LABS: CHLORIDE - SERUM 116 mmol/L (98-107); POTASSIUM - SERUM 2.8 mmol/L (3.5-5.1)
[2017-09-20 08:17] VITALS: BP 147/104
[2017-09-20 10:25] LABS: CKMB 0.8 U/L (0.0-3.6); CREATINE KINASE 65 UL (21-232); TROPONIN-I < 0.017 ng/mL (0.000-0.060)
[2017-09-20 12:45] VITALS: BP 178/108
[2017-09-20] MEDS ORDERED: LEVAQUIN750 MG PO (13:46)
[2017-09-20] MEDS ORDERED: NICODERM C1 PATCH .1 TRANSDERM (13:57)
[2017-10-23] MEDS ORDERED: LEVAQUIN500 MG PO (11:54)
[2017-10-23] MEDS ORDERED: DIFLUCAN100 MG PO (11:55)
== END 2017-09-20 15:31 | disposition home health service (06) | DRG 871 ==
LOC: D.ER 12:51 → D.MS 15:26 → OBSVTIME 15:26 → D.MS 09-17 16:14
PROVIDERS: Family Medicine; Internal Medicine Cardiovascular Disease; Internal Medicine Nephrology
PROC: 00JU3ZZ Inspection of Spinal Canal, Percutaneous Approach (ICD-10-PCS; principal; 2017-09-18)
DX: A41.50 Gram-negative sepsis, unspecified (principal); G93.40 Encephalopathy, unspecified; N17.9 Acute kidney failure, unspecified; F11.20 Opioid dependence, uncomplicated; F19.20 Other psychoactive substance dependence, uncomplicated; N39.0 Urinary tract infection, site not specified; R65.20 Severe sepsis without septic shock; T40.4X1A Poisoning by other synthetic narcotics, accidental (unintentional), initial encounter; I50.9 Heart failure, unspecified; F10.20 Alcohol dependence, uncomplicated; I10 Essential (primary) hypertension

== ENCOUNTER 2018-01-27 04:13 | Observation (INO) | payer MEDICARE ==
[~2018-01-27] VITALS: Ht 167.6 cm; Wt 57.6 kg
[~2018-01-27 04:13] MED LIST changes: +DIFLUCAN100 MG PO; +LEVAQUIN500 MG PO; +NICODERM C1 PATCH .1 TRANSDERM
[2018-01-27 04:32] LABS: BASOPHILS 0.3 % (0-2); EOSINOPHILS 2.1 % (0-7); HEMOGLOBIN 15.8 g/dL (13.5-17.5); IMMATURE GRANULOCYTES 0.4 % (0-5); LYMPHOCYTES 10.2 % (15-50); MCH 33.5 pg (26.0-34.0); MCHC 34.3 g/dL (31.0-37.0); MCV 97.5 fL (80.0-100.0); MEAN PLATELET VOLUME 9.7 fL (7.4-10.4); MONOCYTES 4.9 % (2-11); NEUTROPHILS 82.1 % (40-80); RBC 4.72 10x6/uL (4.20-6.10); WBC 13.8 10x3/uL (4.8-10.8)
[2018-01-27 04:35] LABS: PLATELET COUNT 170 10x3/uL (130-400)
[2018-01-27 05:04] LABS: ALBUMIN 3.3 g/dL (3.4-5.0); ANION GAP 17.9 mmol/L (8-16); BILIRUBIN - TOTAL 0.5 mg/dL (0.2-1.3); CALCIUM 8.9 mg/dL (8.5-10.1); CREATININE - SERUM 1.3 mg/dL (0.6-1.3); MAGNESIUM - SERUM 1.8 mg/dL (1.8-2.4); POTASSIUM - SERUM 3.9 mmol/L (3.5-5.1); PROTEIN - SERUM 7.3 g/dL (6.4-8.2)
[2018-01-27 05:42] LABS: APPEARANCE HAZY (CLEAR); COLOR YELLOW (YELLOW); SPECIFIC GRAVITY 1.015 (1.005-1.020)
[2018-01-27 05:43] LABS: BACTERIA FEW /hpf (NONE SEEN); BILIRUBIN NEGATIVE (NEGATIVE); EPITHELIAL CELLS RARE /hpf (0-5); GLUCOSE NEGATIVE (NEGATIVE); KETONE NEGATIVE (NEGATIVE); NITRITE NEGATIVE (NEGATIVE); PROTEIN 1+ mg/dL (NEGATIVE); RED CELLS - URINE 0-5 /hpf (0-5); UROBILINOGEN NORMAL (NORMAL)
[2018-01-27 05:47] LABS: UDS - AMPHET NEGATIVE QUAL (NEGATIVE); UDS - BARB NEGATIVE QUAL (NEGATIVE); UDS - BENZO NEGATIVE QUAL (NEGATIVE); UDS - COCAINE NEGATIVE QUAL (NEGATIVE); UDS - OPIATE NEGATIVE QUAL (NEGATIVE); UDS - PCP NEGATIVE QUAL (NEGATIVE); UDS - THC NEGATIVE QUAL (NEGATIVE)
[2018-01-27 11:15] VITALS: BP 107/72
[2018-01-27] MEDS ORDERED: CELEBREX200 MG PO (11:29)
[2018-01-27] MEDS ORDERED: ENDOCET 10-3251 TAB PO (11:31)
[2018-01-27] MEDS ORDERED: DURAGESIC1 PATCH .7 TRANSDERM (11:32)
[2018-01-27 21:24] VITALS: BP 110/73
[2018-01-28 03:35] VITALS: BP 102/64
[2018-01-28 07:49] LABS: EOSINOPHILS 4.6 % (0-7); HEMATOCRIT 38.2 % (42.0-54.0); HEMOGLOBIN 12.6 g/dL (13.5-17.5); IMMATURE GRANULOCYTES 0.6 % (0-5); LYMPHOCYTES 37.2 % (15-50); MCH 32.7 pg (26.0-34.0); MCV 99.2 fL (80.0-100.0); MEAN PLATELET VOLUME 9.8 fL (7.4-10.4); NEUTROPHILS 46.6 % (40-80); PLATELET COUNT 163 10x3/uL (130-400); RBC 3.85 10x6/uL (4.20-6.10); RDW 15.5 % (11.5-14.5); WBC 6.8 10x3/uL (4.8-10.8)
[2018-01-28 08:06] LABS: CALC OSMOLALITY 281 mosm/kg (275-300); CALCIUM 8.3 mg/dL (8.5-10.1); CARBON DIOXIDE 20.2 mmol/L (21.0-32.0); CHLORIDE - SERUM 110 mmol/L (98-107); GLUCOSE 88 mg/dL (74-106); MAGNESIUM - SERUM 1.7 mg/dL (1.8-2.4); POTASSIUM - SERUM 4.2 mmol/L (3.5-5.1); SODIUM 140 mmol/L (136-145); UREA NITROGEN 25 mg/dL (7-18); eGFR NON AFRICAN AMERICAN 84 mL/min (90-120)
[2018-01-28 15:09] VITALS: Ht 167.6 cm; Wt 57.6 kg
== END 2018-01-28 11:00 | disposition left against medical advice (07) ==
LOC: D.ER 04:13 → D.EDHOLD 06:06 → OBSVTIME 06:06 → D.EDHOLD 11:00
PROVIDERS: Family Medicine
DX: N39.0 Urinary tract infection, site not specified (principal); F10.20 Alcohol dependence, uncomplicated; F19.939 Other psychoactive substance use, unspecified with withdrawal, unspecified; E87.1 Hypo-osmolality and hyponatremia; E86.0 Dehydration; I11.0 Hypertensive heart disease with heart failure; I50.9 Heart failure, unspecified; J44.9 Chronic obstructive pulmonary disease, unspecified; I34.0 Nonrheumatic mitral (valve) insufficiency; Z72.0 Tobacco use; J84.10 Pulmonary fibrosis, unspecified

== ENCOUNTER 2018-04-30 08:08 | Inpatient (IN) | payer MEDICARE ==
[2018-04-30] VITALS (11 sets, daily range): BP systolic 91–119; BP diastolic 57–82; BMI 27.5
[~2018-04-30] VITALS: Ht 167.6 cm; Wt 77.1 kg
[~2018-04-30 08:08] MED LIST changes: +DURAGESIC1 PATCH .7 TRANSDERM; +ENDOCET 10-3251 TAB PO
[2018-04-30 09:02] LABS: BASOPHILS 0.6 % (0-2); EOSINOPHILS 3.3 % (0-7); HEMATOCRIT 41.2 % (42.0-54.0); HEMOGLOBIN 13.7 g/dL (13.5-17.5); IMMATURE GRANULOCYTES 0.2 % (0-5); LYMPHOCYTES 22.3 % (15-50); MCH 33.2 pg (26.0-34.0); MCHC 33.3 g/dL (31.0-37.0); MCV 99.8 fL (80.0-100.0); MEAN PLATELET VOLUME 9.8 fL (7.4-10.4); MONOCYTES 11.1 % (2-11); NEUTROPHILS 62.5 % (40-80); PLATELET COUNT 133 10x3/uL (130-400); RBC 4.13 10x6/uL (4.20-6.10); RDW 14.9 % (11.5-14.5); WBC 9.4 10x3/uL (4.8-10.8)
[2018-04-30 09:16] LABS: APTT 31.1 SECONDS (22.8-39.4); INR 1.06 (0.85-1.17); PROTIME 13.4 SECONDS (11.6-15.0)
[2018-04-30 09:21] LABS: ALBUMIN 2.8 g/dL (3.4-5.0); ALKALINE PHOSPHATASE 106 U/L (46-116); ALT (SGPT) 26 U/L (10-68); BILIRUBIN - TOTAL 1.06 mg/dL (0.2-1.3); CALC OSMOLALITY 275 mosm/kg (275-300); CALCIUM 8.2 mg/dL (8.5-10.1); CARBON DIOXIDE 25.2 mmol/L (21.0-32.0); CHLORIDE - SERUM 101 mmol/L (98-107); CREATININE - SERUM 1.3 mg/dL (0.6-1.3); GLUCOSE 92 mg/dL (74-106); POTASSIUM - SERUM 3.7 mmol/L (3.5-5.1); PROTEIN - SERUM 6.4 g/dL (6.4-8.2); SODIUM 135 mmol/L (136-145); UREA NITROGEN 30 mg/dL (7-18); eGFR NON AFRICAN AMERICAN 62 mL/min (90-120)
[2018-04-30 09:25] LABS: D-DIMER-QUANTITATIVE 1.88 ug/mLFEU (0.20-0.54)
[2018-04-30 09:33] LABS: CKMB 0.4 U/L (0.0-3.6); CREATINE KINASE 93 UL (21-232); THYROID STIMULATING HORMONE 0.69 uIU/mL (0.36-3.74); TROPONIN-I < 0.017 ng/mL (0.000-0.060)
[2018-04-30 10:38] LABS: APPEARANCE HAZY (CLEAR); BACTERIA MODERATE /hpf (NONE SEEN); BILIRUBIN NEGATIVE (NEGATIVE); COLOR DK YELLOW (YELLOW); EPITHELIAL CELLS 0-5 /hpf (0-5); GLUCOSE NEGATIVE (NEGATIVE); KETONE SMALL mg/dL (NEGATIVE); MUCUS <1+ /lpf (NONE SEEN); NITRITE NEGATIVE (NEGATIVE); PROTEIN TRACE mg/dL (NEGATIVE); UROBILINOGEN NORMAL (NORMAL); YEAST >1+ WITH HYPHAE /hpf (NONE SEEN)
[2018-05-01 00:31] VITALS: BP 97/64
[2018-05-01 04:42] VITALS: BP 112/74
[2018-05-01 04:57] LABS: BASOPHILS 0.4 % (0-2); EOSINOPHILS 3.7 % (0-7); HEMATOCRIT 34.8 % (42.0-54.0); HEMOGLOBIN 11.6 g/dL (13.5-17.5); IMMATURE GRANULOCYTES 0.3 % (0-5); LYMPHOCYTES 22.9 % (15-50); MCH 32.8 pg (26.0-34.0); MCHC 33.3 g/dL (31.0-37.0); MCV 98.3 fL (80.0-100.0); MONOCYTES 8.8 % (2-11); NEUTROPHILS 63.9 % (40-80); PLATELET COUNT 139 10x3/uL (130-400); RBC 3.54 10x6/uL (4.20-6.10); RDW 14.5 % (11.5-14.5)
[2018-05-01 05:03] LABS: WBC 6.9 10x3/uL (4.8-10.8)
[2018-05-01 05:22] LABS: ALBUMIN 2.3 g/dL (3.4-5.0); ALKALINE PHOSPHATASE 92 U/L (46-116); ALT (SGPT) 25 U/L (10-68); BILIRUBIN - TOTAL 0.85 mg/dL (0.2-1.3); CALCIUM 7.7 mg/dL (8.5-10.1); CARBON DIOXIDE 28.1 mmol/L (21.0-32.0); CHLORIDE - SERUM 104 mmol/L (98-107); GLUCOSE 126 mg/dL (74-106); POTASSIUM - SERUM 3.7 mmol/L (3.5-5.1); PROTEIN - SERUM 5.4 g/dL (6.4-8.2); SODIUM 138 mmol/L (136-145)
[2018-05-01 05:35] LABS: CALC OSMOLALITY 279 mosm/kg (275-300); CREATININE - SERUM 0.9 mg/dL (0.6-1.3); UREA NITROGEN 18 mg/dL (7-18); eGFR NON AFRICAN AMERICAN > 90 mL/min (90-120)
[2018-05-01 08:28] VITALS: BP 111/73
[2018-05-01 13:35] VITALS: BP 114/73
[2018-05-01 14:51] VITALS: Ht 167.6 cm; Wt 77.1 kg
[2018-05-01 16:42] VITALS: BP 105/60
[2018-05-01 20:36] VITALS: BP 100/65
[2018-05-02 04:56] VITALS: BP 145/88
[2018-05-02 05:06] LABS: BASOPHILS 0.7 % (0-2); EOSINOPHILS 7.7 % (0-7); HEMATOCRIT 33.6 % (42.0-54.0); IMMATURE GRANULOCYTES 0.4 % (0-5); LYMPHOCYTES 35.4 % (15-50); MCH 32.4 pg (26.0-34.0); MCHC 32.7 g/dL (31.0-37.0); MCV 98.8 fL (80.0-100.0); MEAN PLATELET VOLUME 9.6 fL (7.4-10.4); MONOCYTES 11.2 % (2-11); NEUTROPHILS 44.6 % (40-80); PLATELET COUNT 140 10x3/uL (130-400); RDW 14.5 % (11.5-14.5)
[2018-05-02 05:19] LABS: WBC 4.6 10x3/uL (4.8-10.8)
[2018-05-02 05:25] LABS: CALC OSMOLALITY 288 mosm/kg (275-300); CALCIUM 7.6 mg/dL (8.5-10.1); CARBON DIOXIDE 27.9 mmol/L (21.0-32.0); CHLORIDE - SERUM 110 mmol/L (98-107); POTASSIUM - SERUM 3.6 mmol/L (3.5-5.1); SODIUM 144 mmol/L (136-145); UREA NITROGEN 21 mg/dL (7-18); eGFR NON AFRICAN AMERICAN 84 mL/min (90-120)
[2018-05-02 05:26] LABS: GLUCOSE 77 mg/dL (74-106)
[2018-05-02 08:46] VITALS: BP 140/92
[2018-05-02 20:18] VITALS: BP 128/83
[2018-05-03 04:16] VITALS: BP 146/90
[2018-05-03 06:10] LABS: BASOPHILS 1.4 % (0-2); EOSINOPHILS 9.7 % (0-7); HEMATOCRIT 34.7 % (42.0-54.0); HEMOGLOBIN 11.5 g/dL (13.5-17.5); LYMPHOCYTES 29.8 % (15-50); MCH 32.4 pg (26.0-34.0); MCHC 33.1 g/dL (31.0-37.0); MCV 97.7 fL (80.0-100.0); MEAN PLATELET VOLUME 9.4 fL (7.4-10.4); MONOCYTES 12.5 % (2-11); NEUTROPHILS 46.6 % (40-80); PLATELET COUNT 161 10x3/uL (130-400); RBC 3.55 10x6/uL (4.20-6.10); RDW 14.2 % (11.5-14.5); WBC 4.2 10x3/uL (4.8-10.8)
[2018-05-03 07:19] LABS: CALC OSMOLALITY 279 mosm/kg (275-300); CALCIUM 7.7 mg/dL (8.5-10.1); CARBON DIOXIDE 25.4 mmol/L (21.0-32.0); CHLORIDE - SERUM 108 mmol/L (98-107); CREATININE - SERUM 0.8 mg/dL (0.6-1.3); GLUCOSE 73 mg/dL (74-106); POTASSIUM - SERUM 3.6 mmol/L (3.5-5.1); SODIUM 141 mmol/L (136-145); UREA NITROGEN 13 mg/dL (7-18); eGFR NON AFRICAN AMERICAN > 90 mL/min (90-120)
[2018-05-03 10:32] VITALS: BP 145/88
[2018-05-03] MEDS ORDERED: DIFLUCAN100 MG PO (14:10)
[2018-05-03] MEDS ORDERED: ZITHROMAX500 MG PO (14:11)
[2018-05-03 14:33] VITALS: BP 153/98
== END 2018-05-03 16:20 | disposition home or self-care (01) | DRG 193 ==
LOC: D.ER 08:08 → D.EDHOLD 13:32 → D.MS 13:32
PROVIDERS: Family Medicine; Internal Medicine Nephrology
DX: J18.9 Pneumonia, unspecified organism (principal); J96.01 Acute respiratory failure with hypoxia; G93.40 Encephalopathy, unspecified; E43 Unspecified severe protein-calorie malnutrition; J44.0 Chronic obstructive pulmonary disease with (acute) lower respiratory infection; N39.0 Urinary tract infection, site not specified; N17.9 Acute kidney failure, unspecified; F17.213 Nicotine dependence, cigarettes, with withdrawal; R55 Syncope and collapse; I10 Essential (primary) hypertension; D64.9 Anemia, unspecified; N40.0 Benign prostatic hyperplasia without lower urinary tract symptoms; G89.29 Other chronic pain; M54.9 Dorsalgia, unspecified; Z68.27 Body mass index [BMI] 27.0-27.9, adult

== ENCOUNTER 2019-04-20 15:03 | Inpatient (IN) | payer MEDICARE ==
[2019-04-20] VITALS (59 sets, daily range): BP systolic 60–128; BP diastolic 28–102
[~2019-04-20] VITALS: Ht 167.6 cm; Wt 60.9 kg
[~2019-04-20 15:03] MED LIST changes: +ZITHROMAX500 MG PO
[2019-04-20 15:50] LABS: BASOPHILS 0.1 % (0-2); EOSINOPHILS 0.5 % (0-7); HEMATOCRIT 40.6 % (42.0-54.0); HEMOGLOBIN 13.6 g/dL (13.5-17.5); IMMATURE GRANULOCYTES 0.6 % (0-5); MCH 31.7 pg (26.0-34.0); MCHC 33.5 g/dL (31.0-37.0); MCV 94.6 fL (80.0-100.0); MEAN PLATELET VOLUME 10.6 fL (7.4-10.4); MONOCYTES 0.3 % (2-11); NEUTROPHILS 93.5 % (40-80); RBC 4.29 10x6/uL (4.20-6.10); RDW 13.4 % (11.5-14.5); WBC 14.5 10x3/uL (4.8-10.8)
[2019-04-20 15:52] LABS: PLATELET COUNT 203 10x3/uL (130-400)
[2019-04-20 15:57] LABS: APPEARANCE HAZY (CLEAR); BILIRUBIN NEGATIVE (NEGATIVE); COLOR YELLOW (YELLOW); GLUCOSE NEGATIVE (NEGATIVE); KETONE NEGATIVE (NEGATIVE); NITRITE NEGATIVE (NEGATIVE); PROTEIN 1+ mg/dL (NEGATIVE); UROBILINOGEN NORMAL (NORMAL)
[2019-04-20 15:58] LABS: WHITE CELLS - URINE 25-50 /hpf (0-5); YEAST >1+ WITH HYPHAE /hpf (NONE SEEN)
[2019-04-20 15:59] LABS: BACTERIA MANY /hpf (NONE SEEN)
[2019-04-20 16:08] LABS: ALBUMIN 2.3 g/dL (3.4-5.0); ANION GAP 28.3 mmol/L (8-16); BILIRUBIN - TOTAL 0.49 mg/dL (0.2-1.3); CALCIUM 7.7 mg/dL (8.5-10.1); CARBON DIOXIDE 13.2 mmol/L (21.0-32.0); CREATININE - SERUM 7.4 mg/dL (0.6-1.3); POTASSIUM - SERUM 4.5 mmol/L (3.5-5.1); PROTEIN - SERUM 6.3 g/dL (6.4-8.2)
[2019-04-20 16:11] LABS: UDS - AMPHET NEGATIVE QUAL (NEGATIVE); UDS - BARB NEGATIVE QUAL (NEGATIVE); UDS - BENZO NEGATIVE QUAL (NEGATIVE); UDS - COCAINE NEGATIVE QUAL (NEGATIVE); UDS - OPIATE POSITIVE QUAL (NEGATIVE); UDS - PCP NEGATIVE QUAL (NEGATIVE); UDS - THC NEGATIVE QUAL (NEGATIVE)
[2019-04-20 16:14] LABS: MAGNESIUM - SERUM 1.6 mg/dL (1.8-2.4)
--- NOTE | 2019-04-20 17:25 | NUR ---
PT TAKEN TO CT BY THIS NURSE
--- NOTE | 2019-04-20 18:10 | NUR ---
THIS NURSE REMINDED KO LOERA IN ICU THAT PATIENT LACTIC ACID NEEDED TO BE RECHECKED BY 1904 PER SEPSIS PROTOCOL
--- NOTE | 2019-04-20 18:20 | NUR ---
PT RECEIVED FROM ER. WAS TOLD PT OVERDOSED ON PERCOCET AND HYDROCODONE. PT IS MOANING. DOES NOT FOLLOW COMMANDS. PT HAS NG TUBE. NOT TO SUCTION CURRENTLY D/T JUST RECEIVING CHARCOAL VIA NG. PT HAS COUDE CATHETER. BLEEDING AROUND CATH. PT HAS 3 PERIPHERAL IVS. NARCAN DRIP, LEVOPHED DRIP, AND NORMAL SALINE. PT ON O2 AT 2L. PT IN SOFT WRIST RESTRAINTS FROM ER.
--- NOTE | 2019-04-20 18:31 | NUR ---
1700 NS started in ICU -
--- NOTE | 2019-04-20 18:39 | NUR ---
NOREPI TITRATED PER PATIENT NEEDS TO MAINTAIN MAP > = 65
--- NOTE | 2019-04-20 18:52 | NUR ---
1720 - 20G IV STARTED BY KO KERR IN R WRIST 1800 - 20 G IV STARTED BY KO JADE IN L FOREARM
--- NOTE | 2019-04-20 19:00 | NUR ---
PT'S SUCICIDAL SCREENING WAS COMPLETED NO TO THE ANSWERS DUE TO THE PATIENT NOT BEING ABLE TO ANSWER THE QUESTIONS AND WILL BE NEEDING A EVAULATION UPON RETURN OF MORE RESPONSIVE COGNITION
[2019-04-20 20:20] LABS: ALBUMIN 1.9 g/dL (3.4-5.0); BILIRUBIN - TOTAL 0.22 mg/dL (0.2-1.3); PROTEIN - SERUM 5.6 g/dL (6.4-8.2)
[2019-04-20 21:19] LABS: ANION GAP 21.1 mmol/L (8-16); CARBON DIOXIDE 11.9 mmol/L (21.0-32.0); CREATININE - SERUM 4.8 mg/dL (0.6-1.3)
[2019-04-21] VITALS (92 sets, daily range): BP systolic 73–130; BP diastolic 44–103; Ht 167.6 cm; Wt 60.9 kg
[2019-04-21 04:32] LABS: APTT 37.7 SECONDS (22.8-39.4); INR 1.23 (0.85-1.17)
[2019-04-21 04:52] LABS: ALBUMIN 1.8 g/dL (3.4-5.0); ANION GAP 19.6 mmol/L (8-16); BILIRUBIN - TOTAL 0.3 mg/dL (0.2-1.3); CALCIUM 7.2 mg/dL (8.5-10.1); MAGNESIUM - SERUM 1.3 mg/dL (1.8-2.4); PHOSPHOROUS 4.8 mg/dL (2.5-4.9); PROTEIN - SERUM 5.2 g/dL (6.4-8.2); VANCOMYCIN - RANDOM 15.4 ug/mL (10.0-20.0)
[2019-04-21 04:53] LABS: CARBON DIOXIDE 20.4 mmol/L (21.0-32.0); CREATININE - SERUM 3.4 mg/dL (0.6-1.3)
[2019-04-21 05:29] LABS: BASOPHILS 0.1 % (0-2); HEMATOCRIT 41.2 % (42.0-54.0); IMMATURE GRANULOCYTES 0.3 % (0-5); LYMPHOCYTES 7.5 % (15-50); MCH 31.6 pg (26.0-34.0); MEAN PLATELET VOLUME 9.9 fL (7.4-10.4); MONOCYTES 1.1 % (2-11); PLATELET COUNT 159 10x3/uL (130-400); RBC 4.43 10x6/uL (4.20-6.10); RDW 13.3 % (11.5-14.5)
--- NOTE | 2019-04-21 07:15 | NUR ---
REPORT RECEIVED. PT ON LEVOPHED DRIP. NG TUBE TO FERNYCarmina HERNANDEZEY. IVS TO RIGHT AC, RIGHT WRIST, AND LEFT WRIST. PT RESTING QUIETLY WITH EYES CLOSED AND EVEN RESPIRATIONS. ON 8L HIGH FLOW NC. IN RESTRAINTS. BICARB AT 150ML/HR. WILL CONTINUE TO MONITOR.
--- NOTE | 2019-04-21 07:36 | NUR ---
1900 PT ASSESSMENT COMPLETED AT THIS TIME. PT LETHARGIC AND ONLY RESPONDING TO STIMULATION AT THIS TIME. WILL MONITOR FOR CHANGES 192 PT'S B/P WAS NOTED TO NEED TITRATION OF MEDICINE. PT WAS NOTED TO BE AT THE HIGHEST RATE POSSIBLE ON THE PHENYLEPHRINE, AND DR. BACON WAS CALLED ABOUT NEEDING ADDITIONAL MEDICINE. NEW ORDERS NOTED. 0 ASSISTANT PROPERTY MANAGER BETTY HERE AT BEDSIDE AND ADVISED TO SWITCH THE PATIENT FROM PHENYLEPHRINE AND TITRATE LEVOPHED TO WEAN OFF THE PHENYLEPHRINE. 2100 PT MAINTAINING HEMODYNAMIC STABLITIY WHILE TITRATING DRIPS FOR BLOOD PRESSURE. 2300 REASSESSMENT COMPLETED AT THIS TIME, NO CHANGES IN THE PATIENTS NEUROLOGICAL STATUS. WILL MONITOR FOR CHANGES. 0100 PT MORE HEMODYNAMICALY STATBLE WITH MINIMAL ADJUSTMENTS OF MEDICINE. WILL MONITOR FOR CHANGES. 0300 REASSESSMENT COMPLETED AT THIS TIME WITH NO CHANGES IN THE PATIENTS COND. WILL MONITOR FOR CHANGES. 0500 I&O COLLECTED AT THIS TIME. 0605 PT WAS GIVEN A COMPLETE LINEN CHANGE AND HCG BATH AT THIS TIME.
--- NOTE | 2019-04-21 08:15 | NUR ---
2ND GRAM OF MAG SULFATE HANGING. TITRATING LEVOPHED DRIP UP (IN IV DRIPS AND VITAL SIGNS CHARTED). WILL CONTINUE TO MONITOR.
--- NOTE | 2019-04-21 10:33 | NUR ---
CALLED PHARMACY TO GET MAG SULFATE FOR LAST GRAM TO INFUSE PER ELECTROLYTE PROTOCOL, AND THEY ALSO SAID THEY HAD TO PULL UP THE DIFLUCAN AND GET IT MIXED AND WOULD SEND UP.
--- NOTE | 2019-04-21 11:12 | NUR ---
DR ALFORD ROUNDING ON PT. WANTS A 1L BOLUS OF NS OVER AN HR. RUNNING IN AT THIS TIME. RESP THERAPIST IN GETTING A BLOOD GAS. DR ALFORD ALSO SAID IF WE MAX OUT ON LEVAPHED TO NEXT ADD VASOPRESSIN 0.4MG.
--- NOTE | 2019-04-21 12:38 | NUR ---
CONSULT CALLED TO DR GRACE ABOUT PLACING A CENTRAL LINE IN PT, PER DR RODRÍGUEZ'S ORDER. PT CURRENTLY MAXED ON LEVOPHED AT 30MCG. BICARB AT 150ML/HR PER DR ALFORD. WILL CONTINUE TO MONITOR.
--- NOTE | 2019-04-21 13:10 | NUR ---
PT GETTING 500ML NS BOLUS PER DR RODRÍGUEZ.
--- NOTE | 2019-04-21 13:30 | NUR ---
DR GRACE IN ROOM PLACING CENTRAL IV.
--- NOTE | 2019-04-21 14:20 | NUR ---
LEFT SUBCLAVIAN PLACED. XRAY VERIFIED PLACEMENT. IV FLUIDS HOOKED TO CVL.
--- NOTE | 2019-04-21 14:38 | NUR ---
CVP SET UP. AVERAGING ABOUT 7-8. CHECK Q12H PER DR RODRÍGUEZ.
--- NOTE | 2019-04-21 16:30 | NUR ---
SPEECH PATHOLOGIST ROUNDED ON PT. UNABLE TO FOLLOW SIMPLE COMMANDS. PT TO STAY NPO FOR NOW.
--- NOTE | 2019-04-21 18:00 | NUR ---
TITRATING LEVOPHED DRIP DOWN. DOCUMENTED IN IV FLOW SHEET AND VITALS DOCUMENTED. WILL CONTINUE TO MONITOR.
--- NOTE | 2019-04-21 18:41 | MORECARE ---
CASE MANAGEMENT DISCHARGE SUMMARY PATIENT: VISH PRASAD UNIT: [id number] ADM DATE: 04/20/19 AGE: 49 : 66 SEX: M ROOM/BED: D.2312 AUTHOR: TERRI TURCIOS PHYSICIAN: REFERRING PHYSICIAN: SAMANTA BACON MD DATE OF SERVICE: 04/21/19 Discharge Plan Patient Name: VISH PRASAD Facility: [facility]:[place] : 1970 Planned Disposition: Anticipated Discharge Date: Discharge Date: Expected LOS: Initial Reviewer: [email or web address] Initial Review Date: 04/21/2019 Generated: 04/21/19 7:41 pm DCPIA - Discharge Planning Initial Assessment Updated by [email or web address]: Sneha Delacruz on 04/21/19 6:40 pm * Is the patient Alert and Oriented? Yes * How many steps to enter\exit or inside your home? * PCP JUAN * Pharmacy [facility] * Preadmission Environment Home with Family * ADLs Partial Dependent * Partial ADLs (Assistance needed) Bathing * Other Equipment WALKER , W/C * List name and contact numbers for known caregivers / representatives who currently or will assist patient after discharge: SANYA PRASAD - MOTHER - [phone] * Verbal permission to speak to the caregivers and representatives has been obtained from the patient. Yes * Community resources currently utilized None * Additional services required to return to the preadmission environment? No * Can the patient safely return to the preadmission environment? Yes * Has this patient been hospitalized within the prior 30 days at any hospital? No Patient Name: VISH PRASAD Page [id number] at 1841 All edits/amendments must be made on the electronic document DICTATION DATE: 04/21/191840 SPECIAL MACHINE STITCHER: L[place]IS 04/21/191840 RPT#: [id number] DC DATE: STATUS: ADM IN [facility] [address] [place] [address] END OF REPORT
--- NOTE | 2019-04-21 18:47 | NUR ---
PT INCONTINENT OF BOWEL. PT CLEANED AND REPOSITIONED.
--- NOTE | 2019-04-21 18:55 | MORECARE ---
CASE MANAGEMENT DISCHARGE SUMMARY PATIENT: VISH PRASAD UNIT: [id number] ADM DATE: 04/20/19 AGE: 49 : 66 SEX: M ROOM/BED: D.2312 AUTHOR: TERRI TURCIOS PHYSICIAN: REFERRING PHYSICIAN: SAMANTA BACON MD DATE OF SERVICE: 04/21/19 Discharge Plan Patient Name: VISH PRASAD Facility: [facility]:[place] : 1970 Planned Disposition: Anticipated Discharge Date: Discharge Date: Expected LOS: Initial Reviewer: [email or web address] Initial Review Date: 04/21/2019 Generated: 04/21/19 7:54 pm Comments DCP- Discharge Planning Updated by [email or web address]: Sneha Delacruz on 04/21/19 5:[address] Patient Name: VISH PRASAD Admission Status: ER Accout number: [id number] Admission Date: 04-20-2019 : 1970 Admission Diagnosis: Attending: SAMANTA BACON Current LOS: 1 Anticipated DC Date: Planned Disposition: Primary Insurance: MEDICARE A & B Discharge Planning Comments: CM called and spoke with patient's mother Esperanza after explaining CM role and obtaining verbal consent. Patient confused not answering any questions. Patient lives at home with his mother Esperanza and plans to return there upon discharge. Esperanza stated that the patient hasn't spoke/ talked 3 days prior to admission. She also stated he hasn't ate in over a week. Esperanza also stated that his nephew has been assisting him with ADLs. CM discussed availability / needs of home health and medical equipment. Esperanza denies any discharge needs at this time. Esperanza states that she will be up to visit patient once he is out of ICU. CM stated that she can call nurses station for updates if needed. CM will continue to follow and assist as needed with discharge planning / needs. Jig Borer: Sneha Delacruz DCPIA - Discharge Planning Initial Assessment Updated by [email or web address]: Sneha Delacruz on 04/21/19 6:40 pm * Is the patient Alert and Oriented? Yes * How many steps to enter\exit or inside your home? * PCP JUAN * Pharmacy [facility] * Preadmission Environment Home with Family * ADLs Partial Dependent * Partial ADLs (Assistance needed) Bathing * Other Equipment WALKER , W/C * List name and contact numbers for known caregivers / representatives who currently or will assist patient after discharge: ESPERANZA PRASAD - MOTHER - [phone] * Verbal permission to speak to the caregivers and representatives has been obtained from the patient. Yes * Community resources currently utilized None * Additional services required to return to the preadmission environment? No * Can the patient safely return to the preadmission environment? Yes * Has this patient been hospitalized within the prior 30 days at any hospital? No Last DP export: 04/21/19 5:41 pm Patient Name: VISH PRASAD Page [phone] at 1855 All edits/amendments must be made on the electronic document DICTATION DATE: 04/21/191853 TERMITE CONTROL SERVICE REPRESENTATIVE: L[place]IS 04/21/191853 RPT#: [id number] [place] DATE: STATUS: ADM IN [facility] [address] [place] [address] END OF REPORT
--- NOTE | 2019-04-21 19:00 | NUR ---
REPORT RECEIVED, PT LETHARGIC, RESPONDS TO STIMULI. ASSESSMENT COMPLETED, SEE FLOW SHEET. RT WRIST PIV, LT WRIST PIV, RT AC PIV, ALL TO SL, DRESSINGS CDI. LT SUBCLAVIAN CVL INFUSING, SEE IV FLOWSHEET. DRESSING CDI. NG TUBE TO LOW INTERMITTENT SUCTION, GREEN-BLACK DRAINAGE RETURN. PLACEMENT CHECKED VIA AUSCULTATION, SECURED.
--- NOTE | 2019-04-21 21:15 | NUR ---
PT AROUSES TO STIMULI, PRODUCTIVE COUGH NOTED, PT REQUIRED ASSISTANCE WITH SUCTION, MOUTH CARE PROVIDED. VITALS STABLE, WILL CONTINIUE TO MONITOR.
--- NOTE | 2019-04-21 23:05 | NUR ---
URINE SPECIMEN COLLECTED VIA PALMA PORT.
[2019-04-21 23:32] LABS: CREATININE - URINE 22.9 mg/dL (30-125); PROTEIN - URINE 49.1 mg/dL (0.0-11.9)
[2019-04-22] VITALS (28 sets, daily range): BP systolic 97–126; BP diastolic 70–92
--- NOTE | 2019-04-22 01:00 | NUR ---
ORAL CARE PROVIDED, PT ASSISTED WITH SUCTIONING. PRODUCTIVE STARR-COLORED SPUTUM NOTED.
--- NOTE | 2019-04-22 03:00 | NUR ---
PT IN BED, NO SIGNS OF ACUTE DISTRESS, VITALS STABLE, WILL CONTINUE TO MONITOR.
--- NOTE | 2019-04-22 04:53 | NUR ---
VITALS STABLE, NO SIGNS OF ACUTE DISTRESS, WILL CONTINUE TO MONITOR.
[2019-04-22 05:46] LABS: ALBUMIN 1.5 g/dL (3.4-5.0); ALKALINE PHOSPHATASE 95 U/L (46-116); ALT (SGPT) 23 U/L (10-68); CHLORIDE - SERUM 109 mmol/L (98-107); GLUCOSE 122 mg/dL (74-106); MAGNESIUM - SERUM 1.6 mg/dL (1.8-2.4); PROTEIN - SERUM 4.4 g/dL (6.4-8.2); SODIUM 147 mmol/L (136-145); VANCOMYCIN - RANDOM 18.7 ug/mL (10.0-20.0)
[2019-04-22 06:09] LABS: PHOSPHOROUS 2.2 mg/dL (2.5-4.9)
[2019-04-22 06:10] LABS: CALC OSMOLALITY 299 mosm/kg (275-300); CARBON DIOXIDE 33.6 mmol/L (21.0-32.0); CREATININE - SERUM 1.1 mg/dL (0.6-1.3); UREA NITROGEN 33 mg/dL (7-18); eGFR NON AFRICAN AMERICAN 75 mL/min (90-120)
--- NOTE | 2019-04-22 07:00 | NUR ---
PT RSTING IN BED AWAKE AND ALERT DISORIENTED X 4--MOANS. NGT TO LIS--BLACK DRAINAGE. 6L NC. VSS. LEVOPHED TITRATED OFF. BICARB INFUSING AT 150. NS AT 50. CVP ZEROED READS 5. PALMA DRAINING YELLOW URINE. WILL CONTINUE TO MONITOR
[2019-04-22 08:47] LABS: BASOPHILS 0.5 % (0-2); EOSINOPHILS 4.2 % (0-7); HEMOGLOBIN 11.8 g/dL (13.5-17.5); IMMATURE GRANULOCYTES 34.6 % (0-5); LYMPHOCYTES 8.7 % (15-50); MCH 31.2 pg (26.0-34.0); MCHC 34.7 g/dL (31.0-37.0); MCV 89.9 fL (80.0-100.0); MEAN PLATELET VOLUME 10.2 fL (7.4-10.4); MONOCYTES 1.3 % (2-11); NEUTROPHILS 50.7 % (40-80); RBC 3.78 10x6/uL (4.20-6.10); RDW 13.1 % (11.5-14.5); WBC 6.2 10x3/uL (4.8-10.8)
--- NOTE | 2019-04-22 08:52 | NUR ---
NEPHROLOGY RECREATION WORKER AND DR. HAAS ROUNDED ON PATIENT. 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 VSS
[2019-04-22 08:53] LABS: PLATELET COUNT 65 10x3/uL (130-400)
[2019-04-22 09:20] LABS: PLATELET ESTIMATE DECREASED
[2019-04-22 09:24] LABS: ROULEAUX OCC
--- NOTE | 2019-04-22 09:51 | NUR ---
ASSESSED HAIR FOR LICE AND FOUND NITS. OBTAINED ORDER FOR PYRETH LICE SHAMPOO.
--- NOTE | 2019-04-22 11:30 | NUR ---
DR. RODRÍGUEZ AND DR. BACON MADE ROUNDS. EXPLAINED UNCERTAINTY OF CVP READING AND THAT ALL CORDS HAVE BEEN CHANGED AND CVP HAS BEEN ZEROED SEVERAL TIMES, STILL ONLY READING 1 TO 2 IF NOT ZERO. INCOMPATIBLE WITH CHEST X-RAY THIS AM SHOWING INCREASED PULMONARY EDEMA.
[2019-04-22 14:30] LABS: CALC OSMOLALITY 294 mosm/kg (275-300); CALCIUM 7.2 mg/dL (8.5-10.1); CARBON DIOXIDE 32.7 mmol/L (21.0-32.0); CHLORIDE - SERUM 108 mmol/L (98-107); CREATININE - SERUM 1.1 mg/dL (0.6-1.3); GLUCOSE 107 mg/dL (74-106); POTASSIUM - SERUM 3.3 mmol/L (3.5-5.1); SODIUM 146 mmol/L (136-145); UREA NITROGEN 25 mg/dL (7-18); eGFR NON AFRICAN AMERICAN 75 mL/min (90-120)
--- NOTE | 2019-04-22 15:11 | NUR ---
WASHED PATIENTS HAIR WITH LICE SHAMPOO. LEFT FOR TEN MINUTES, RINCED AND DRIED PER INSTRUCTIONS. ALSO GAVE CHG BATH. CHANGED ALL LINENS AND GOWN. PULLED UP IN BED AND TURNED TO RIGHT SIDE. VSS. CALL RIVAS IN REACH.
--- NOTE | 2019-04-22 16:55 | NUR ---
TRANSFERRED TO ROOM 2307. S.
--- NOTE | 2019-04-22 17:08 | NUR ---
VITAL SIGNS DID NOT TRANSFER WITH BOX WHEN IT WAS MOVED FROM ROOM 12 TO ROOM 7, SO THERE ARE NO VS TO RECORD FROM 1200 TO 1600. PATIENT REMAINED STABLE ALL DAY.
--- NOTE | 2019-04-22 19:25 | NUR ---
Received patient laying in bed with eyes closed, assessment completed per flowsheet. Patient makes incomprehensible sounds/unable to answer questions, does not follow instructions. Oral care provided, repositioned for comfort. Unable to assess pain at this time, see flowsheet for details. All VSS and will continue to monitor.
--- NOTE | 2019-04-22 21:00 | NUR ---
Patient laying in bed with eyes closed, incomprehensible sounds/moaning. Oral care provided, repositioned for comfort. HS meds given as ordered, no further needs and will continue to monitor.
--- NOTE | 2019-04-22 23:15 | NUR ---
Reassessment completed per flowsheet, no changes noted from previous assessment. Patient arouse to voice/incomprehensible sounds, does not follow instructions. Oral care provided, repositioned for comfort. Unable to assess pain, see flowsheet for details. All VSS and will continue to monitor.
[2019-04-23] VITALS (24 sets, daily range): BP systolic 101–146; BP diastolic 76–98
--- NOTE | 2019-04-23 01:10 | NUR ---
Patient laying in bed with eyes closed, incomprehensible sounds/moaning. Patient does not follow instructions, unable to assess pain at this time. Repositioned for comfort, all VSS and will continue to monitor.
--- NOTE | 2019-04-23 03:05 | NUR ---
Reassessment completed per flowsheet, no changes noted from previous assessment. Patient unable to follow instructions, incomprehensible sounds/moaning. Oral care provided, repositioned for comfort. Unable to assess pain, see flowsheet for details. All VSS and will continue to monitor.
[2019-04-23 05:03] LABS: BASOPHILS 0.4 % (0-2); EOSINOPHILS 2.8 % (0-7); HEMATOCRIT 32.9 % (42.0-54.0); HEMOGLOBIN 11.5 g/dL (13.5-17.5); IMMATURE GRANULOCYTES 1.6 % (0-5); LYMPHOCYTES 11.7 % (15-50); MCH 31.8 pg (26.0-34.0); MCV 90.9 fL (80.0-100.0); MEAN PLATELET VOLUME 10.5 fL (7.4-10.4); MONOCYTES 0.5 % (2-11); RBC 3.62 10x6/uL (4.20-6.10)
[2019-04-23 05:06] LABS: PLATELET COUNT 31 10x3/uL (130-400); WBC 8.2 10x3/uL (4.8-10.8)
--- NOTE | 2019-04-23 05:10 | NUR ---
Radiology at bedside for x-ray, AM labs collected without difficulty. Patient roused to stimuli, opened eyes/incomprehensible sounds. Does not follow instructions, repositioned for comfort and will continue to monitor.
[2019-04-23 05:16] LABS: ALBUMIN 1.8 g/dL (3.4-5.0); ALKALINE PHOSPHATASE 89 U/L (46-116); ALT (SGPT) 27 U/L (10-68); BILIRUBIN - TOTAL 0.95 mg/dL (0.2-1.3); CALC OSMOLALITY 292 mosm/kg (275-300); CALCIUM 7.4 mg/dL (8.5-10.1); CARBON DIOXIDE 29.7 mmol/L (21.0-32.0); CHLORIDE - SERUM 109 mmol/L (98-107); CREATININE - SERUM 1.1 mg/dL (0.6-1.3); GLUCOSE 97 mg/dL (74-106); MAGNESIUM - SERUM 1.5 mg/dL (1.8-2.4); POTASSIUM - SERUM 3.6 mmol/L (3.5-5.1); SODIUM 146 mmol/L (136-145); UREA NITROGEN 19 mg/dL (7-18); eGFR NON AFRICAN AMERICAN 75 mL/min (90-120)
[2019-04-23 05:18] LABS: PHOSPHOROUS 1.3 mg/dL (2.5-4.9)
--- NOTE | 2019-04-23 07:20 | NUR ---
PATIENT RESTING. HR IS 122 AT THIS TIME. ISOLATION PRECAUTIONS IN ACTION. PATIENT DISORIENTED TO PLACE, TIME, SELF. WILL CONTINUE TO MONITOR.
--- NOTE | 2019-04-23 09:15 | NUR ---
PATIENT MOANING. SINUS TACH WHEN PATIENT GETS WORKED UP. WILL NOT FOLLOW COMMANDS. NONVERBAL. WILL CONTINUE TO MONITOR
--- NOTE | 2019-04-23 11:14 | NUR ---
DR BACON AT BEDSIDE. UPDATE GIVEN.
--- NOTE | 2019-04-23 11:36 | OP ---
PATIENT NAME: VISH PRASAD MEDICAL RECORD: [id number] :66 LOCATION:D.[facility] D.2307 ADMISSION DATE:04/20/19 SURGEON: DARYL GRACE MD DATE OF OPERATION: 04/21/2019 PREOPERATIVE DIAGNOSES: 1. Septic shock. 2. Acute renal failure. 3. Metabolic acidosis. 4. UTI. 5. COPD. 6. Acute mental status changes with metabolic encephalopathy. POSTOPERATIVE DIAGNOSES: 1. Septic shock. 2. Acute renal failure. 3. Metabolic acidosis. 4. UTI. 5. COPD. 6. Acute mental status changes with metabolic encephalopathy. PROCEDURE: Left subclavian vein triple lumen central venous line placement. SURGEON: Daryl Grace MD REPORT OF PROCEDURE: The patient's left chest was prepped and draped in sterile fashion. A 5 cc of 1% lidocaine with epinephrine was infused into the surrounding tissues. A needle was then used to cannulate the left subclavian vein and a guidewire was advanced with ease. Over this wire, dilator was placed followed by the triple lumen catheter. The catheter aspirated nonpulsatile dark blood and flushed easily in all 3 ports. This was sutured into place with 3-0 silk ties and dressed appropriately. COMPLICATIONS: None. CONDITION: Critical. ANESTHESIA: Local. BLOOD LOSS: Minimal. Procedure done at the bedside. TRANSINT:[id number] Voice Confirmation ID: [id number] DOCUMENT ID: [id number] DARYL GRACE MD at 1136 CC: [id number] DICTATION DATE: 04/21/19 1515 TICKET PULLER: 04/21/19 1907 ADM IN [place] [id number] [place] [address]
--- NOTE | 2019-04-23 13:30 | NUR ---
PATIENT RESTING. CALL LIGHT WITHIN REACH. BED LOW AND LOCKED. ISOLATION PRECAUTIONS IN PLACE. RESPIRATORY AT BEDSIDE. WILL CONTINUE TO MONITOR
--- NOTE | 2019-04-23 15:58 | MORECARE ---
CASE MANAGEMENT DISCHARGE SUMMARY PATIENT: VISH PRASAD UNIT: [id number] ADM DATE: 04/20/19 AGE: 49 : 66 SEX: M ROOM/BED: D.2307 AUTHOR: TERRI TURCIOS PHYSICIAN: REFERRING PHYSICIAN: SAMANTA BACON MD DATE OF SERVICE: 04/23/19 Discharge Plan Patient Name: VISH PRASAD Facility: [facility]:[place] : 1970 Planned Disposition: Anticipated Discharge Date: Discharge Date: Expected LOS: Initial Reviewer: [email or web address] Initial Review Date: 04/21/2019 Generated: 04/23/19 4:57 pm Comments DCP- Discharge Planning Updated by [id number]: Sneha Delacruz on 04/21/19 5:[address] Patient Name: VISH PRASAD Admission Status: ER Accout number: [id number] Admission Date: 04-20-2019 : 1970 Admission Diagnosis: Attending: SAMANTA BACON Current LOS: 1 Anticipated DC Date: Planned Disposition: Primary Insurance: MEDICARE A & B Discharge Planning Comments: CM called and spoke with patient's mother Esperanza after explaining CM role and obtaining verbal consent. Patient confused not answering any questions. Patient lives at home with his mother Esperanza and plans to return there upon discharge. Esperanza stated that the patient hasn't spoke/ talked 3 days prior to admission. She also stated he hasn't ate in over a week. Esperanza also stated that his nephew has been assisting him with ADLs. CM discussed availability / needs of home health and medical equipment. Esperanza denies any discharge needs at this time. Esperanza states that she will be up to visit patient once he is out of ICU. CM stated that she can call nurses station for updates if needed. CM will continue to follow and assist as needed with discharge planning / needs. Spray Ii Painter: Sneha Delacruz DCPIA - Discharge Planning Initial Assessment Updated by [email or web address]: Sneha Delacruz on 04/21/19 6:40 pm * Is the patient Alert and Oriented? Yes * How many steps to enter\exit or inside your home? * PCP JUAN * Pharmacy [facility] * Preadmission Environment Home with Family * ADLs Partial Dependent * Partial ADLs (Assistance needed) Bathing * Other Equipment WALKER , W/C * List name and contact numbers for known caregivers / representatives who currently or will assist patient after discharge: ESPERANZA PRASAD - MOTHER - [phone] * Verbal permission to speak to the caregivers and representatives has been obtained from the patient. Yes * Community resources currently utilized None * Additional services required to return to the preadmission environment? No * Can the patient safely return to the preadmission environment? Yes * Has this patient been hospitalized within the prior 30 days at any hospital? No External Providers External Provider: [facility] Next Contact Date: Service Request Date: Service Type: Resolution: Reviewer: Comments: Last DP export: 04/21/19 5:55 pm Patient Name: VISH PRASAD Page [phone] at 1558 All edits/amendments must be made on the electronic document DICTATION DATE: 04/23/191556 SHANK THREADER: LOUIS 04/23/191556 RPT#: [id number] DC DATE: STATUS: ADM IN [facility] [address] [place] [address] END OF REPORT
--- NOTE | 2019-04-23 16:13 | MORECARE ---
CASE MANAGEMENT DISCHARGE SUMMARY PATIENT: VISH PRASAD UNIT: [id number] ADM DATE: 04/20/19 AGE: 49 : 66 SEX: M ROOM/BED: D.2307 AUTHOR: TERRI TURCIOS PHYSICIAN: REFERRING PHYSICIAN: SAMANTA BACON MD DATE OF SERVICE: 04/23/19 Discharge Plan Patient Name: VISH PRASAD Facility: [facility]:[place] : 1970 Planned Disposition: Anticipated Discharge Date: Discharge Date: Expected LOS: Initial Reviewer: [email or web address] Initial Review Date: 04/21/2019 Generated: 04/23/19 5:12 pm Comments DCP- Discharge Planning Updated by [email or web address]: Sneha Delacruz on 04/23/19 3:[address] CM received notice that patient needs transfer to [facility] for [facility]y evaluation. CM called and faxed records to transfer center. CM will continue to follow and assist as needed with discharge planning / needs. DCP- Discharge Planning Updated by [email or web address]: Sneha Delacruz on 04/21/19 5:[address] Patient Name: VISH PRASAD Admission Status: ER Accout number: [id number] Admission Date: 04-20-2019 : 1970 Admission Diagnosis: Attending: SAMANTA BACON Current LOS: 1 Anticipated DC Date: Planned Disposition: Primary Insurance: MEDICARE A & B Discharge Planning Comments: CM called and spoke with patient's mother Esperanza after explaining CM role and obtaining verbal consent. Patient confused not answering any questions. Patient lives at home with his mother Esperanza and plans to return there upon discharge. Esperanza stated that the patient hasn't spoke/ talked 3 days prior to admission. She also stated he hasn't ate in over a week. Esperanza also stated that his nephew has been assisting him with ADLs. CM discussed availability / needs of home health and medical equipment. Esperanza denies any discharge needs at this time. Esperanza states that she will be up to visit patient once he is out of ICU. CM stated that she can call nurses station for updates if needed. CM will continue to follow and assist as needed with discharge planning / needs. Hedis Registered Nurse Rn: Sneha Jayme DCPIA - Discharge Planning Initial Assessment Updated by [email or web address]: Sneha Delacruz on 04/21/19 6:40 pm * Is the patient Alert and Oriented? Yes * How many steps to enter\exit or inside your home? * PCP JUAN * Pharmacy [facility] * Preadmission Environment Home with Family * ADLs Partial Dependent * Partial ADLs (Assistance needed) Bathing * Other Equipment WALKER , W/C * List name and contact numbers for known caregivers / representatives who currently or will assist patient after discharge: ESPERANZA PRASAD - MOTHER - [phone] * Verbal permission to speak to the caregivers and representatives has been obtained from the patient. Yes * Community resources currently utilized None * Additional services required to return to the preadmission environment? No * Can the patient safely return to the preadmission environment? Yes * Has this patient been hospitalized within the prior 30 days at any hospital? No Last DP export: 04/23/19 2:58 pm Patient Name: VISH PRASAD Page [phone] at 1613 All edits/amendments must be made on the electronic document DICTATION DATE: 04/23/191611 POSTAL CARRIER: LOUIS 04/23/191611 RPT#: [id number] IN DATE: STATUS: ADM IN [facility] [address] [place] [address] END OF REPORT
--- NOTE | 2019-04-23 16:17 | NUR ---
SPOKE TO SANYA. SANYA IS PATIENTS MOTHER. SHE AGREED TO TRANSFER PATIENT TO ANOTHER FACILITY. ARIC CONNELL VERIFIED.
--- NOTE | 2019-04-23 17:29 | NUR ---
spoke with [facility]. they stated that a bed will not be immediately available but they will be in touch.
--- NOTE | 2019-04-23 19:00 | NUR ---
SHIFT ASSESSMENT COMPLETE. VS STABLE. NO VISUAL CUES OF DISTRESS NOTED. WILL CONTINUE TO MONITOR,
--- NOTE | 2019-04-23 21:00 | NUR ---
VITAL SIGNS STABLE. NO VISUAL CUES OF DISTRESS NOTED. WILL CONTINUE TO MONITOR.
--- NOTE | 2019-04-23 23:00 | NUR ---
VITAL SIGNS STABLE. NO VISUAL CUES OF DISTRESS NOTED. WILL CONTINUE TO MONITOR.
[2019-04-24] VITALS (15 sets, daily range): BP systolic 91–126; BP diastolic 65–88
--- NOTE | 2019-04-24 01:00 | NUR ---
VITAL SIGNS STABLE. NO VISUAL CUES OF DISTRESS NOTED. WILL CONTINUE TO MONITOR.
--- NOTE | 2019-04-24 03:00 | NUR ---
VITAL SIGNS STABLE. NO VISUAL CUES OF DISTRESS NOTED. WILL CONTINUE TO MONITOR.
--- NOTE | 2019-04-24 05:00 | NUR ---
VITAL SIGNS STABLE. NO VISUAL CUES OF DISTRESS NOTED. WILL CONTINUE TO MONITOR.
[2019-04-24 05:36] LABS: BASOPHILS 0.3 % (0-2); EOSINOPHILS 3.9 % (0-7); HEMATOCRIT 31.3 % (42.0-54.0); HEMOGLOBIN 10.7 g/dL (13.5-17.5); IMMATURE GRANULOCYTES 1.2 % (0-5); LYMPHOCYTES 19.7 % (15-50); MCH 31.1 pg (26.0-34.0); MCHC 34.2 g/dL (31.0-37.0); MEAN PLATELET VOLUME 10.2 fL (7.4-10.4); MONOCYTES 1.2 % (2-11); NEUTROPHILS 73.7 % (40-80); RBC 3.44 10x6/uL (4.20-6.10); RDW 13.3 % (11.5-14.5); WBC 7.7 10x3/uL (4.8-10.8)
[2019-04-24 05:39] LABS: PLATELET COUNT 19 10x3/uL (130-400)
[2019-04-24 05:55] LABS: ALBUMIN 1.9 g/dL (3.4-5.0); ANION GAP 14.7 mmol/L (8-16); BILIRUBIN - TOTAL 1.25 mg/dL (0.2-1.3); CALCIUM 7.6 mg/dL (8.5-10.1); CARBON DIOXIDE 25.5 mmol/L (21.0-32.0); CREATININE - SERUM 1.2 mg/dL (0.6-1.3); MAGNESIUM - SERUM 1.8 mg/dL (1.8-2.4); PHOSPHOROUS 2.6 mg/dL (2.5-4.9); POTASSIUM - SERUM 3.2 mmol/L (3.5-5.1)
[2019-04-24 05:59] LABS: PLATELET ESTIMATE DECREASED
--- NOTE | 2019-04-24 07:00 | NUR ---
RESTING IN BED. TACHYCARDIC AND TACHYPNEIC. BP STABLE. WILL CONTINUE TO MONITOR
[2019-04-24 08:11] LABS: HEPATITIS C ANTIBODY <0.1 S/CO RAT (0.0-0.9)
--- NOTE | 2019-04-24 10:31 | NUR ---
PAGED DR. RODRÍGUEZ ABOUT RESPIRATORY STATUS. ORDERS OBTAINED
--- NOTE | 2019-04-24 11:00 | NUR ---
PLACED ON BIPAP TO TRY AND SLOW BREATHING
[2019-04-24 11:14] LABS: APTT 37.1 SECONDS (22.8-39.4); INR 1.41 (0.85-1.17); PROTIME 16.7 SECONDS (11.6-15.0)
[2019-04-24 11:22] LABS: D-DIMER-QUANTITATIVE 11.45 ug/mLFEU (0.20-0.54)
--- NOTE | 2019-04-24 12:15 | NUR ---
Nutrition follow-up: Pt NPO NGT->IVANIA ProcalAmine PPN @ 75 ml/hr Labs reviewed Wt: 134# Pt txing to [facility] due to neuro issues RDN following.
--- NOTE | 2019-04-24 13:02 | NUR ---
CALLED REPORT TO [facility].
--- NOTE | 2019-04-24 15:52 | NUR ---
[facility] HERE FOR PT
--- NOTE | 2019-04-24 19:26 | MORECARE ---
CASE MANAGEMENT DISCHARGE SUMMARY PATIENT: VISH PRASAD UNIT: [id number] ADM DATE: 04/20/19 AGE: 49 : 66 SEX: M ROOM/BED: D.2307 AUTHOR: TERRI TURCIOS PHYSICIAN: REFERRING PHYSICIAN: SAMANTA BACNO MD DATE OF SERVICE: 04/24/19 Discharge Plan Patient Name: VISH PRASAD Facility: [facility]:[place] : 1970 Planned Disposition: Anticipated Discharge Date: Discharge Date: 04/24/2019 Expected LOS: Initial Reviewer: [email or web address] Initial Review Date: 04/21/2019 Generated: 04/24/19 8:26 pm Comments DCP- Discharge Planning Updated by [id number]: Sneha Delacruz on 04/23/19 3:[address] CM received notice that patient needs transfer to [facility] for neurology evaluation. CM called and faxed records to transfer center. CM will continue to follow and assist as needed with discharge planning / needs. DCP- Discharge Planning Updated by [id number]: Sneha Delacruz on 04/21/19 5:[address] Patient Name: VISH PRASAD Admission Status: ER Accout number: [id number] Admission Date: 04-20-2019 : 1970 Admission Diagnosis: Attending: SAMANTA BACON Current LOS: 1 Anticipated DC Date: Planned Disposition: Primary Insurance: MEDICARE A & B Discharge Planning Comments: CM called and spoke with patient's mother Esperanza after explaining CM role and obtaining verbal consent. Patient confused not answering any questions. Patient lives at home with his mother Esperanza and plans to return there upon discharge. Esperanza stated that the patient hasn't spoke/ talked 3 days prior to admission. She also stated he hasn't ate in over a week. Esperanza also stated that his nephew has been assisting him with ADLs. CM discussed availability / needs of home health and medical equipment. Esperanza denies any discharge needs at this time. Esperanza states that she will be up to visit patient once he is out of ICU. CM stated that she can call nurses station for updates if needed. CM will continue to follow and assist as needed with discharge planning / needs. Suspension Cord Tier: Sneha Delacruz DCPIA - Discharge Planning Initial Assessment Updated by [email or web address]: Sneha Delacruz on 04/21/19 6:40 pm * Is the patient Alert and Oriented? Yes * How many steps to enter\exit or inside your home? * PCP JUAN * Pharmacy [facility] * Preadmission Environment Home with Family * ADLs Partial Dependent * Partial ADLs (Assistance needed) Bathing * Other Equipment WALKER , W/C * List name and contact numbers for known caregivers / representatives who currently or will assist patient after discharge: ESPERANZA PRASAD - MOTHER - [phone] * Verbal permission to speak to the caregivers and representatives has been obtained from the patient. Yes * Community resources currently utilized None * Additional services required to return to the preadmission environment? No * Can the patient safely return to the preadmission environment? Yes * Has this patient been hospitalized within the prior 30 days at any hospital? No Last DP export: 04/23/19 3:12 pm Patient Name: VISH PRASAD Page [phone] at 1926 All edits/amendments must be made on the electronic document DICTATION DATE: 04/24/191924 ROTO GRAVURE PRESS OPERATOR: LOUIS 04/24/191924 RPT#: [id number] DC DATE:04/24/19 STATUS: DIS IN [facility] [address] [place] [address] END OF REPORT
[2019-04-25 16:08] LABS: HEPARIN INDUCED PLATELET AB 0.205 OD (0.000-0.400)
== END 2019-04-24 15:52 | disposition short-term general hospital (02) | DRG 871 ==
LOC: D.ER 15:03 → D.ICU 17:36
PROVIDERS: Family Medicine; Internal Medicine; Internal Medicine Hematology & Oncology; Internal Medicine Pulmonary Disease; ADMIT Family Medicine; ATTEND Family Medicine
PROC: 05H633Z Insertion of Infusion Device into Left Subclavian Vein, Percutaneous Approach (ICD-10-PCS; principal; 2019-04-21)
DX: A41.9 Sepsis, unspecified organism (principal); R65.21 Severe sepsis with septic shock; G93.41 Metabolic encephalopathy; J96.01 Acute respiratory failure with hypoxia; N17.0 Acute kidney failure with tubular necrosis; I50.23 Acute on chronic systolic (congestive) heart failure; J69.0 Pneumonitis due to inhalation of food and vomit; N39.0 Urinary tract infection, site not specified; E87.2 Acidosis; E87.0 Hyperosmolality and hypernatremia; T40.2X1A Poisoning by other opioids, accidental (unintentional), initial encounter; J44.9 Chronic obstructive pulmonary disease, unspecified; I11.0 Hypertensive heart disease with heart failure

== ENCOUNTER → 2019-05-19 16:14 | Outpatient (CLI) | payer MEDICARE ==
[2019-04-21 10:32] VITALS: BMI 20.4
[2019-05-19 17:11] LABS: INR 1.57 (0.85-1.17); PROTIME 18.2 SECONDS (11.6-15.0)
== END | disposition home or self-care (01) ==
LOC: D.LABREF 16:14
PROVIDERS: ATTEND Emergency Medicine
DX: I50.22 Chronic systolic (congestive) heart failure (principal)

== ENCOUNTER → 2019-07-06 14:54 | Outpatient (CLI) | payer MEDICARE ==
[2019-04-21 10:32] VITALS: BMI 20.4
[~2019-07-06 14:54] MED LIST changes: +BUTRANS1 EAC2 TRANSDERM; +CARVEDILOL TAB 3.1 PO
[2019-07-06 15:31] LABS: INR 1.11 (0.85-1.17); PROTIME 13.8 SECONDS (11.6-15.0)
== END | disposition home or self-care (01) ==
LOC: D.LABREF 14:54
PROVIDERS: ATTEND Emergency Medicine
DX: I26.99 Other pulmonary embolism without acute cor pulmonale (principal)

== ENCOUNTER → 2019-07-31 16:27 | Outpatient (CLI) | payer MEDICARE ==
[2019-04-21 10:32] VITALS: BMI 20.4
[2019-07-31 17:08] LABS: INR 1.37 (0.85-1.17); PROTIME 16.3 SECONDS (11.6-15.0)
== END | disposition home or self-care (01) ==
LOC: D.LABREF 16:27
PROVIDERS: ATTEND Emergency Medicine
DX: I50.9 Heart failure, unspecified (principal); Z79.01 Long term (current) use of anticoagulants; D69.6 Thrombocytopenia, unspecified

== ENCOUNTER 2019-08-20 15:28 | Inpatient (IN) | payer MEDICARE ==
[~2019-08-20] VITALS: Ht 190.5 cm; Wt 56.2 kg
[~2019-08-20 15:28] MED LIST changes: -BUTRANS1 EAC2 TRANSDERM; -CARVEDILOL TAB 3.1 PO
[2019-08-20 17:14] LABS: BASOPHILS 0.5 % (0-2); EOSINOPHILS 3.1 % (0-7); HEMATOCRIT 30.4 % (42.0-54.0); HEMOGLOBIN 9.7 g/dL (13.5-17.5); IMMATURE GRANULOCYTES 0.4 % (0-5); LYMPHOCYTES 22.1 % (15-50); MCH 31.2 pg (26.0-34.0); MCHC 31.9 g/dL (31.0-37.0); MCV 97.7 fL (80.0-100.0); MEAN PLATELET VOLUME 9.6 fL (7.4-10.4); MONOCYTES 6.7 % (2-11); NEUTROPHILS 67.2 % (40-80); RBC 3.11 10x6/uL (4.20-6.10); RDW 16.1 % (11.5-14.5); WBC 15.3 10x3/uL (4.8-10.8)
[2019-08-20 17:17] LABS: CALC OSMOLALITY 276 mosm/kg (275-300); CALCIUM 8.6 mg/dL (8.5-10.1); CARBON DIOXIDE 25.7 mmol/L (21.0-32.0); CHLORIDE - SERUM 103 mmol/L (98-107); CREATININE - SERUM 1.1 mg/dL (0.6-1.3); GLUCOSE 86 mg/dL (74-106); POTASSIUM - SERUM 4.7 mmol/L (3.5-5.1); SODIUM 136 mmol/L (136-145); UREA NITROGEN 30 mg/dL (7-18); eGFR NON AFRICAN AMERICAN 75 mL/min (90-120)
[2019-08-20 17:18] LABS: PLATELET COUNT 315 10x3/uL (130-400)
[2019-08-20 17:23] LABS: ALBUMIN 2.9 g/dL (3.4-5.0); ALKALINE PHOSPHATASE 102 U/L (46-116); ALT (SGPT) 31 U/L (10-68); BILIRUBIN - TOTAL 0.15 mg/dL (0.2-1.3)
[2019-08-20 17:47] LABS: APTT 52.7 SECONDS (22.8-39.4)
[2019-08-20 17:50] LABS: INR 8.24 (0.85-1.17); PROTIME 67.7 SECONDS (11.6-15.0)
--- NOTE | 2019-08-20 17:57 | NUR ---
PATIENT SENT TO ED BY CLINIC FOR ELEVATED INR. PATIENT ON COUMADIN THERAPY FOR PE, HAS BLOOD IN BOTH EAR CANALS. A/O X 3, PERRL, SKIN W/D, LUNGS CLEAR, C/M WITH SR, SMCs INTACT X 4.
[2019-08-20 19:20] VITALS: BP 93/68
[2019-08-20] MEDS ORDERED: BUTRANS1 EAC2 TRANSDERM (21:37)
[2019-08-20] MEDS ORDERED: PREDNISONE10 MG PO (21:38)
[2019-08-20] MEDS ORDERED: CARVEDILOL TAB 3.1 PO (21:39)
--- NOTE | 2019-08-20 21:40 | NUR ---
ARRIVED TO ROOM 2226 VIA STRETCHER AND HOSP STAFF, ALERT AND ORIENTED. SLOW TO RESPOND, BUT APPROPRIATE. PLEASANT MOOD AND AFFECT. STATES HE IS NEEDING TO USE URINAL AND IS COLD, BOTH ADDRESSED. UA COLLECTED AND SENT TO LAB. SKIN IS INTACT, HANDS APPEAR TO BE SLIGHTLY CONTRACTED. WEAKENING TO ALL EXTREMETIES. ABLE TO MOVE ALL ON COMMAND, HANDS ARE ABLE TO BE SLIGHTLY OPENED ON OWN. DENIES ANY PAIN OR ACUTE DISTRESS AT THIS TIME. WISHES TO KEEP OWN PANTS ON TO PROMOTE WARMTH. WILL NOTE ANY CHANGE.
[2019-08-20 22:00] LABS: BILIRUBIN NEGATIVE (NEGATIVE); COLOR YELLOW (YELLOW); GLUCOSE NEGATIVE (NEGATIVE); KETONE NEGATIVE (NEGATIVE); NITRITE NEGATIVE (NEGATIVE); PROTEIN NEGATIVE (NEGATIVE); SPECIFIC GRAVITY 1.015 (1.005-1.020); UROBILINOGEN NORMAL (NORMAL)
[2019-08-20 22:07] LABS: APPEARANCE HAZY (CLEAR); BACTERIA FEW /hpf (NEGATIVE); EPITHELIAL CELLS NSEEN /hpf (0-5); RED CELLS - URINE 0-5 /hpf (0-5)
[2019-08-20 22:10] LABS: YEAST <1+ /hpf (NONE SEEN)
[2019-08-20 23:37] VITALS: BP 111/63; BMI 15.5
[2019-08-21 00:13] VITALS: BP 115/82
[2019-08-21 05:14] VITALS: BP 109/53
[2019-08-21 07:19] LABS: ALBUMIN 2.5 g/dL (3.4-5.0); ALKALINE PHOSPHATASE 90 U/L (46-116); ALT (SGPT) 25 U/L (10-68); BILIRUBIN - TOTAL 0.35 mg/dL (0.2-1.3); CALC OSMOLALITY 271 mosm/kg (275-300); CALCIUM 8.4 mg/dL (8.5-10.1); CHLORIDE - SERUM 106 mmol/L (98-107); CREATININE - SERUM 0.7 mg/dL (0.6-1.3); GLUCOSE 60 mg/dL (74-106); MAGNESIUM - SERUM 1.5 mg/dL (1.8-2.4); PHOSPHOROUS 1.9 mg/dL (2.5-4.9); POTASSIUM - SERUM 4.3 mmol/L (3.5-5.1); PROTEIN - SERUM 5.9 g/dL (6.4-8.2); SODIUM 136 mmol/L (136-145); UREA NITROGEN 19 mg/dL (7-18); eGFR NON AFRICAN AMERICAN > 90 mL/min (90-120)
--- NOTE | 2019-08-21 07:21 | NUR ---
PT IS RESTING IN BED WITH EYES CLOSED. RESPIRATIONS ARE EVEN AND UNLABORED. PT IS EASILY AROUSED WITH VERBAL STIMULATION. PT IS AAO X 4 UPON AROUSAL. PT ANSWERS QUESTIONS SLOWLY BUT APPROPRIATLEY. PT WITH BILATERAL UPPER EXTREMITY CONTRACTURES. PT REPORTS THAT HE HAS RHEUMATOID ARTHRITIS. PT REPORTS THAT HE IS ABLE TO REPOSITION IN BED WITH OUT DIFFICULTY AND DENIES NEEDS FOR ASSISTANCE. PT DENIES PRESENCE OF PAIN/N/V. BED IS IN THE LOWEST POSITION. CALL LIGHT AND BEDSIDE TABLE ARE WITHIN REACH. SIDE RAILS X 2. BED ALARM IS ON AND WORKING ALL FALL PRECAUTIONS ARE IN PLACE. WILL CONT TO MONITOR.
--- NOTE | 2019-08-21 08:35 | NUR ---
TELEMETRY MOITOR CALLED TO NOTIFY OF PT HEARTRATE @ 156 PER TELEMETRY. UPON ENTERING PT ROOM PT IS AAO X 4 AND USING URINAL FOR VOIDING. 450 ML CLEAR LIGHT YELLOW URINE NOTED TO URINAL. PT REPORTS THAT HE "FEELS REAL BAD ALL OVER". PT DENIES PRESENCE OF N/V. BED IS IN THE LOWEST POSITION. CALL LIGHT AND BEDSDIDE TABLE ARE WITHIN REACH. SIDE RAILS X 2. WILL NOTIFY [facility] OF PT STATUS.
[2019-08-21 08:46] VITALS: BP 95/53
[2019-08-21 08:50] LABS: BASOPHILS 0.6 % (0-2); EOSINOPHILS 3.5 % (0-7); HEMATOCRIT 31.6 % (42.0-54.0); HEMOGLOBIN 9.8 g/dL (13.5-17.5); IMMATURE GRANULOCYTES 0.3 % (0-5); LYMPHOCYTES 21.7 % (15-50); MCH 31.3 pg (26.0-34.0); MEAN PLATELET VOLUME 10.2 fL (7.4-10.4); MONOCYTES 8.7 % (2-11); NEUTROPHILS 65.2 % (40-80); PLATELET COUNT 317 10x3/uL (130-400); RBC 3.13 10x6/uL (4.20-6.10); RDW 16.5 % (11.5-14.5); WBC 14.2 10x3/uL (4.8-10.8)
[2019-08-21 09:10] LABS: APTT 39.7 SECONDS (22.8-39.4); INR 1.43 (0.85-1.17); PROTIME 16.9 SECONDS (11.6-15.0)
[2019-08-21 13:11] VITALS: BP 110/69
[2019-08-21 13:45] VITALS: Ht 190.5 cm; Wt 56.2 kg
[2019-08-21 16:29] VITALS: BP 100/54
[2019-08-21 19:40] LABS: UDS - AMPHET NEGATIVE QUAL (NEGATIVE); UDS - BARB NEGATIVE QUAL (NEGATIVE); UDS - BENZO NEGATIVE QUAL (NEGATIVE); UDS - COCAINE NEGATIVE QUAL (NEGATIVE); UDS - OPIATE POSITIVE QUAL (NEGATIVE); UDS - PCP NEGATIVE QUAL (NEGATIVE); UDS - THC NEGATIVE QUAL (NEGATIVE)
[2019-08-21 21:00] VITALS: BP 94/62
--- NOTE | 2019-08-21 21:00 | NUR ---
LYING ON LT SIDE IN BED. DROWSY. LETHARGIC. SLOW TO RESPOND TO QUESTIONS. DIFF UNDERSTANDING PT BECAUSE HE SPEAKS SOFTLY AND MUMBLES. RESP NONLABORED. TELEMETRY SHOWS ST WITH RATE OF 135 WITH PACS. GEN WEAKNESS NOTED. BILAT HANDS CONTRACTURED DUE TO ARTHRITIS. DENIES PAIN. NS @ 75 MLHR INFUSING IN RT FOREARM. USES URINAL. TURNS SELF. SAL ALARM IN USE. CL IN REACH.
[2019-08-22 00:16] VITALS: BP 101/54
--- NOTE | 2019-08-22 00:20 | NUR ---
MEDICATED WITH TYLENOL FOR ELEVATED TEMP. CL IN REACH.
--- NOTE | 2019-08-22 02:41 | NUR ---
RESTING ON LT SIDE WITH EYES CLOSED. RESP EVEN AND NONLABORED. NO DISTRESS. CL IN REACH.
[2019-08-22 05:07] VITALS: BP 96/56
[2019-08-22 05:57] LABS: BASOPHILS 0.6 % (0-2); EOSINOPHILS 2.2 % (0-7); HEMATOCRIT 29.3 % (42.0-54.0); HEMOGLOBIN 9.4 g/dL (13.5-17.5); IMMATURE GRANULOCYTES 0.5 % (0-5); LYMPHOCYTES 24.2 % (15-50); MCH 30.8 pg (26.0-34.0); MCHC 32.1 g/dL (31.0-37.0); MEAN PLATELET VOLUME 9.4 fL (7.4-10.4); MONOCYTES 13.2 % (2-11); NEUTROPHILS 59.3 % (40-80); PLATELET COUNT 292 10x3/uL (130-400); RBC 3.05 10x6/uL (4.20-6.10); WBC 10.8 10x3/uL (4.8-10.8)
[2019-08-22 06:02] LABS: MCV 96.1 fL (80.0-100.0)
[2019-08-22 06:30] LABS: CALCIUM 7.6 mg/dL (8.5-10.1); CARBON DIOXIDE 22.9 mmol/L (21.0-32.0); CHLORIDE - SERUM 105 mmol/L (98-107); CREATININE - SERUM 0.8 mg/dL (0.6-1.3); SODIUM 138 mmol/L (136-145); UREA NITROGEN 15 mg/dL (7-18); eGFR NON AFRICAN AMERICAN > 90 mL/min (90-120)
[2019-08-22 06:31] LABS: CALC OSMOLALITY 275 mosm/kg (275-300); GLUCOSE 72 mg/dL (74-106); MAGNESIUM - SERUM 1.1 mg/dL (1.8-2.4); PHOSPHOROUS 2.4 mg/dL (2.5-4.9)
[2019-08-22 08:46] VITALS: BP 90/65
[2019-08-22 12:05] LABS: INR 1.27 (0.85-1.17); PROTIME 15.4 SECONDS (11.6-15.0)
[2019-08-22 12:18] LABS: % SATURATION 6 % (15-55); IRON 11 ug/dl (35-150); TOTAL IRON BIND CAPACITY 172 ug/dl (260-445); UNSAT IRON BIND CAPACITY 161 ug/dl (150-375)
--- NOTE | 2019-08-22 13:00 | NUR ---
PATIENT BP LOW. NOTIFIED ALCIDES SANABRIA. MANUAL PRESSURE 92/54. WILL CONTINUE TO MONITOR. CALL LIGTH WITHIN REACH.
--- NOTE | 2019-08-22 16:30 | NUR ---
TYLENOL GIVEN FOR TEMP. PATIENT IN BED WITH EYES CLOSED RESTING QUIETLY. CALL LIGHT WITHIN REACH.
[2019-08-22 18:02] VITALS: BP 80/53
--- NOTE | 2019-08-22 18:45 | NUR ---
PATIENT IN BED WITH EYES CLOSED RESTING QUIETLY. IV INTACT. NO COMPLAINTS. CALL LIGTH WITHIN REACH.
--- NOTE | 2019-08-22 19:15 | NUR ---
PATIENT ALERT AND ORIENTED. LETHARGIC. SLOW TO RESPOND. PATIENT HAS RIGHT FOREARM IV. INFUSING DIFLUCAN AT THIS TIME. DENIES NEEDS AT THIS TIME. CALL LIGHT IN REACH. CPOC.
[2019-08-22 19:41] VITALS: BP 74/40
--- NOTE | 2019-08-22 22:10 | NUR ---
BED BATH PROVIDED. PATIENT TOLERATED WELL.
[2019-08-23 00:42] VITALS: BP 150/73
--- NOTE | 2019-08-23 03:45 | NUR ---
I have reviewed this patient and I concur with the Shift Assessment completed by the Licensed Practical Nurse today this shift.
[2019-08-23 04:48] VITALS: BP 83/52
[2019-08-23 04:48] LABS: BASOPHILS 0.2 % (0-2); HEMATOCRIT 28.9 % (42.0-54.0); HEMOGLOBIN 9.2 g/dL (13.5-17.5); IMMATURE GRANULOCYTES 0.3 % (0-5); LYMPHOCYTES 19.1 % (15-50); MCH 30.5 pg (26.0-34.0); MCHC 31.8 g/dL (31.0-37.0); MCV 95.7 fL (80.0-100.0); MEAN PLATELET VOLUME 8.8 fL (7.4-10.4); MONOCYTES 10.4 % (2-11); PLATELET COUNT 261 10x3/uL (130-400); RBC 3.02 10x6/uL (4.20-6.10); RDW 15.9 % (11.5-14.5); WBC 9.8 10x3/uL (4.8-10.8)
[2019-08-23 04:55] LABS: INR 1.18 (0.85-1.17); PROTIME 14.5 SECONDS (11.6-15.0)
[2019-08-23 05:04] LABS: CALC OSMOLALITY 271 mosm/kg (275-300); CALCIUM 7.9 mg/dL (8.5-10.1); CHLORIDE - SERUM 105 mmol/L (98-107); CREATININE - SERUM 0.8 mg/dL (0.6-1.3); GLUCOSE 84 mg/dL (74-106); PHOSPHOROUS 2.3 mg/dL (2.5-4.9); SODIUM 137 mmol/L (136-145); eGFR NON AFRICAN AMERICAN > 90 mL/min (90-120)
[2019-08-23 05:05] LABS: MAGNESIUM - SERUM 2.3 mg/dL (1.8-2.4); UREA NITROGEN 10 mg/dL (7-18)
[2019-08-23 08:04] VITALS: BP 91/62
[2019-08-23 12:28] VITALS: BP 96/64
[2019-08-23 16:57] VITALS: BP 73/49
--- NOTE | 2019-08-23 19:30 | NUR ---
ALCIDES GARCIA PAGED DUE TO LOW BP 77/48, 78/48 MANUAL
--- NOTE | 2019-08-23 20:10 | NUR ---
ALCIDES GARCIA PAGED AGAIN NO RETURN CALL AT THIS TIME
[2019-08-23 20:42] VITALS: BP 77/48
--- NOTE | 2019-08-23 20:45 | NUR ---
CALL RECIEVED FROM ALCIDES GARCIA, REPORTED LOW BP, ORDER RECIEVED FOR 500CC NS BOLUS, STARTED WILL MONITOR, DENIES NEEDS OR PAIN AT THIS TIME
[2019-08-24 01:34] VITALS: BP 88/49
[2019-08-24 05:12] VITALS: BP 77/49
[2019-08-24 06:04] LABS: BASOPHILS 0.4 % (0-2); EOSINOPHILS 4.9 % (0-7); HEMATOCRIT 26.5 % (42.0-54.0); HEMOGLOBIN 8.5 g/dL (13.5-17.5); IMMATURE GRANULOCYTES 0.3 % (0-5); LYMPHOCYTES 24.9 % (15-50); MCH 30.5 pg (26.0-34.0); MCHC 32.1 g/dL (31.0-37.0); MEAN PLATELET VOLUME 9.4 fL (7.4-10.4); NEUTROPHILS 56.5 % (40-80); PLATELET COUNT 260 10x3/uL (130-400); RBC 2.79 10x6/uL (4.20-6.10); RDW 15.8 % (11.5-14.5)
[2019-08-24 06:07] LABS: WBC 6.7 10x3/uL (4.8-10.8)
[2019-08-24 06:26] LABS: CALC OSMOLALITY 276 mosm/kg (275-300); CALCIUM 7.3 mg/dL (8.5-10.1); CHLORIDE - SERUM 108 mmol/L (98-107); CREATININE - SERUM 0.7 mg/dL (0.6-1.3); GLUCOSE 74 mg/dL (74-106); MAGNESIUM - SERUM 1.4 mg/dL (1.8-2.4); PHOSPHOROUS 2.3 mg/dL (2.5-4.9); SODIUM 140 mmol/L (136-145); UREA NITROGEN 9 mg/dL (7-18); eGFR NON AFRICAN AMERICAN > 90 mL/min (90-120)
[2019-08-24 06:40] LABS: INR 1.14 (0.85-1.17); PROTIME 14.1 SECONDS (11.6-15.0)
--- NOTE | 2019-08-24 08:00 | NUR ---
PT IS WITHOUT DISTRESS.CALL LIGHT IN REACH
[2019-08-24 08:20] VITALS: BP 90/60
[2019-08-24 12:03] VITALS: BP 96/63
--- NOTE | 2019-08-24 15:34 | NUR ---
Nutrition follow-up: Diet changed to regular from consistent CHO due to pts glucose under good control and po intake very poor at this time. Labs reviewed Wt: 126# REcommend a trial of an appetite stimulant RDN following.
--- NOTE | 2019-08-24 15:38 | NUR ---
PT C/O PAIN ADMINISTERED PRN TYLENOL, NO OTHER NEEDS VOICED, PT WAS SUPRIYA SCHEDULED ELIQUIS, REFUSED LOVENX STATING HE JUST GOT ELIQUIS, RETIMED TO START NEXT DOSE, CONTINUE WITH PLAN OF CARE
[2019-08-24 17:04] VITALS: BP 80/49
--- NOTE | 2019-08-24 20:00 | NUR ---
ASSESSMENT PER FLOWSHEET. IV PATENT RT FOREARM OF NS AT 75CC'S/HR. TELM. SHOWS SR. 92. SR UP X2 CALL LIGHT WITHIN REACH. SAL MAT ON. VOIDS IN URINAL.
[2019-08-24 21:08] VITALS: BP 88/51
--- NOTE | 2019-08-24 21:30 | NUR ---
MEDS GIVEN PER MAR. LJGW=[id number]. NO COVERAGE.
--- NOTE | 2019-08-25 | NUR ---
RESTING QUIETLY DENIES NEEDS.
[2019-08-25 01:05] VITALS: BP 105/66
--- NOTE | 2019-08-25 02:54 | NUR ---
EYES CLOSED RESPIRATIONS WIITH EASE AND UNLABORED.
[2019-08-25 04:38] VITALS: BP 109/58
[2019-08-25 05:49] LABS: BASOPHILS 0.5 % (0-2); EOSINOPHILS 5.7 % (0-7); HEMATOCRIT 27.5 % (42.0-54.0); HEMOGLOBIN 8.7 g/dL (13.5-17.5); IMMATURE GRANULOCYTES 0.3 % (0-5); LYMPHOCYTES 29.1 % (15-50); MCH 30.2 pg (26.0-34.0); MCHC 31.6 g/dL (31.0-37.0); MCV 95.5 fL (80.0-100.0); MEAN PLATELET VOLUME 9.2 fL (7.4-10.4); MONOCYTES 13.1 % (2-11); NEUTROPHILS 51.3 % (40-80); PLATELET COUNT 290 10x3/uL (130-400); RBC 2.88 10x6/uL (4.20-6.10); RDW 15.6 % (11.5-14.5); WBC 6.3 10x3/uL (4.8-10.8)
[2019-08-25 06:19] LABS: CALC OSMOLALITY 276 mosm/kg (275-300); CALCIUM 7.6 mg/dL (8.5-10.1); CARBON DIOXIDE 22.6 mmol/L (21.0-32.0); CHLORIDE - SERUM 109 mmol/L (98-107); CREATININE - SERUM 0.8 mg/dL (0.6-1.3); GLUCOSE 71 mg/dL (74-106); MAGNESIUM - SERUM 1.3 mg/dL (1.8-2.4); PHOSPHOROUS 2.2 mg/dL (2.5-4.9); POTASSIUM - SERUM 3.9 mmol/L (3.5-5.1); SODIUM 141 mmol/L (136-145); UREA NITROGEN 8 mg/dL (7-18); eGFR NON AFRICAN AMERICAN > 90 mL/min (90-120)
[2019-08-25 06:30] LABS: INR 1.5 (0.85-1.17); PROTIME 17.5 SECONDS (11.6-15.0)
[2019-08-25 08:37] VITALS: BP 113/73
[2019-08-25 12:24] VITALS: BP 99/68
--- NOTE | 2019-08-25 14:06 | NUR ---
PT LOOKING FORWARD TO BEING DC THEN WAS ADVISED DC WILL BE WITHELD UNTIL TOMORROW. NO NEEDS VOICED WILL CONTINUE WITH PLAN OF CARE
[2019-08-25 15:26] LABS: PHOSPHOROUS 2.1 mg/dL (2.5-4.9)
[2019-08-25 15:27] LABS: MAGNESIUM - SERUM 1.8 mg/dL (1.8-2.4)
[2019-08-25 16:43] VITALS: BP 97/63
--- NOTE | 2019-08-25 20:00 | NUR ---
ASSESSMENT PER FLOWHEET. IV WAS RESITED BY COLLIN MANRIQUEZ TO LEFT HAND #22G ANGIOCATH, IV FLUIDS OF NS AT 75CC'S/HR.
[2019-08-25 20:45] VITALS: BP 101/65
--- NOTE | 2019-08-25 21:30 | NUR ---
MEDS GIVEN PER MAR. FSBS=98. NO COVERAGE NEEDED.
--- NOTE | 2019-08-26 | NUR ---
VOIDS IN URINAL. TURNS SELF IN BED. SR UP X2 CALL LIGHT WITHIN REACH.
[2019-08-26 01:21] VITALS: BP 113/82
--- NOTE | 2019-08-26 04:01 | NUR ---
IV INFILTRATED . PATIENT REQUESTING NOT TO HAVE IV RESITED STATES DOCTOR SAID HE PROBABLY WILL GO HOME IN AM.
[2019-08-26 05:06] VITALS: BP 100/70
[2019-08-26 05:29] LABS: BASOPHILS 0.9 % (0-2); EOSINOPHILS 5.5 % (0-7); HEMATOCRIT 26.9 % (42.0-54.0); HEMOGLOBIN 8.7 g/dL (13.5-17.5); IMMATURE GRANULOCYTES 0.1 % (0-5); LYMPHOCYTES 28.2 % (15-50); MCH 30.7 pg (26.0-34.0); MCHC 32.3 g/dL (31.0-37.0); MCV 95.1 fL (80.0-100.0); MONOCYTES 11.5 % (2-11); NEUTROPHILS 53.8 % (40-80); PLATELET COUNT 300 10x3/uL (130-400); RBC 2.83 10x6/uL (4.20-6.10); RDW 15.9 % (11.5-14.5); WBC 6.7 10x3/uL (4.8-10.8)
[2019-08-26 06:19] LABS: ALBUMIN 2.2 g/dL (3.4-5.0); ALKALINE PHOSPHATASE 88 U/L (46-116); ALT (SGPT) 32 U/L (10-68); BILIRUBIN - TOTAL 0.22 mg/dL (0.2-1.3); CALC OSMOLALITY 277 mosm/kg (275-300); CALCIUM 7.8 mg/dL (8.5-10.1); CARBON DIOXIDE 22.3 mmol/L (21.0-32.0); CHLORIDE - SERUM 109 mmol/L (98-107); CREATININE - SERUM 0.8 mg/dL (0.6-1.3); GLUCOSE 74 mg/dL (74-106); MAGNESIUM - SERUM 1.7 mg/dL (1.8-2.4); PHOSPHOROUS 2.1 mg/dL (2.5-4.9); POTASSIUM - SERUM 3.6 mmol/L (3.5-5.1); PROTEIN - SERUM 5.4 g/dL (6.4-8.2); SODIUM 141 mmol/L (136-145); UREA NITROGEN 8 mg/dL (7-18); eGFR NON AFRICAN AMERICAN > 90 mL/min (90-120)
[2019-08-26 06:37] LABS: INR 1.43 (0.85-1.17); PROTIME 17.4 SECONDS (11.6-15.0)
[2019-08-26 08:20] VITALS: BP 104/68
--- NOTE | 2019-08-26 09:15 | MORECARE ---
CASE MANAGEMENT DISCHARGE SUMMARY PATIENT: VISH QUEVEDO UNIT: [id number] ADM DATE: 08/21/19 AGE: 49 : 66 SEX: M ROOM/BED: D.2226 AUTHOR: TERRI TURCIOS PHYSICIAN: REFERRING PHYSICIAN: NAV NORMAN MD DATE OF SERVICE: 08/26/19 Discharge Plan Patient Name: VISH QUEVEDO Facility: [facility]:[place] : 1970 Planned Disposition: Home with Home Health Anticipated Discharge Date: 08/26/19 Discharge Date: Expected LOS: 5 Initial Reviewer: [email or web address] Initial Review Date: 08/26/2019 Generated: 08/26/19 10:14 am DCPIA - Discharge Planning Initial Assessment Updated by [id number]: Irasema Jernigan on 08/26/19 9:13 am * Is the patient Alert and Oriented? Yes * How many steps to enter\exit or inside your home? 0/0 * PCP Dr. Hameed * Pharmacy [facility] * Preadmission Environment Home with Family * ADLs Partial Dependent * Partial ADLs (Assistance needed) Ambulation Bathing Dressing Medication Management * Equipment Cane Hospital Bed * List name and contact numbers for known caregivers / representatives who currently or will assist patient after discharge: Esperanza Quevedo - [facility] - [phone] * Community resources currently utilized Home Health * Please name any agencies selected above. [facility] * Additional services required to return to the preadmission environment? No * Can the patient safely return to the preadmission environment? Yes * Has this patient been hospitalized within the prior 30 days at any hospital? No Coverage Notice Reviewer: [id number] Jp Martinez Notice Issued Date-Time: 08/20/2019 19:30 Notice Type: Medicare Outpatient Observation Notice Notice Delivered To: Patient Relationship to Patient: Self Gun Tester Name: [place] Delivery Method: HAND - Hand Delivered [place] Days: Prior Verbal Notification: Recipient Understood Notice: Recipient Signature: Yes Med Rec Note Co-signed by Attending: Coverage Notice Comment: FERRERA delivered to and initialized by patient. Original given to patient and also placed on chart. Patient Name: VISH QUEVEDO Page [phone] at 0915 All edits/amendments must be made on the electronic document DICTATION DATE: 08/26/19913 PLASTIC SURGERY NURSE: LOUIS 08/26/19913 RPT#: [id number] DC DATE: STATUS: ADM IN [facility] [address] [place] [address] END OF REPORT
--- NOTE | 2019-08-26 09:22 | MORECARE ---
CASE MANAGEMENT DISCHARGE SUMMARY PATIENT: VISH QUEVEDO UNIT: [id number] ADM DATE: 08/21/19 AGE: 49 : 66 SEX: M ROOM/BED: D.2226 AUTHOR: KAROLINA,DOC PHYSICIAN: REFERRING PHYSICIAN: NAV NORMAN MD DATE OF SERVICE: 08/26/19 Discharge Plan Patient Name: VISH QUEVEDO Facility: [facility]:[place] : 1970 Planned Disposition: Home with Home Health Anticipated Discharge Date: 08/26/19 Discharge Date: Expected LOS: 5 Initial Reviewer: [email or web address] Initial Review Date: 08/26/2019 Generated: 08/26/19 10:22 am Comments DCP- Discharge Planning Updated by [id number]: Irasema Jernigan on 08/26/19 8:[address] Patient Name: VISH QUEVEDO Admission Status: ER Accout number: [id number] Admission Date: 08-21-2019 : 1970 Admission Diagnosis:SEPSIS, UNSPECIFIED ORGANISM Attending: NAV NORMAN Current LOS: 5 Anticipated DC Date: 08-26-2019 Planned Disposition: Home with Home Health Primary Insurance: MEDICARE A & B Discharge Planning Comments: CM met with patient to complete initial dc planning assessment, he is alone in the room. CM educated patient on the CM role and verbal consent given by patient to complete assessment. Patient lives at home with his mother, brother and 2 nephews. At discharge patient plans to return and feels this is a safe discharge. CM discussed availability of home health, rehab services, and medical equipment. Patient would like to continue with [employer] [facility]. He states they have been sending a nurse to check his Coumadin level. I informed him that the doctor has changed him to Eliquis. He states he or his mom will get the medicine. States his mother, sister and her will pick him up at discharge. CM will continue to follow and will assist as needed with dc plans/needs. Farm Service Consultant: Irasema Jernigan DCPIA - Discharge Planning Initial Assessment Updated by [email or web address]: Irasema Jernigan on 08/26/19 9:13 am * Is the patient Alert and Oriented? Yes * How many steps to enter\exit or inside your home? 0/0 * PCP Dr. Hameed * Pharmacy [facility] * Preadmission Environment Home with Family * ADLs Partial Dependent * Partial ADLs (Assistance needed) Ambulation Bathing Dressing Medication Management * Equipment Cane Hospital Bed * List name and contact numbers for known caregivers / representatives who currently or will assist patient after discharge: Esperanza Quevedo - mother - [phone] * Community resources currently utilized Home Health * Please name any agencies selected above. [facility] * Additional services required to return to the preadmission environment? No * Can the patient safely return to the preadmission environment? Yes * Has this patient been hospitalized within the prior 30 days at any hospital? No Coverage Notice Reviewer: [id number] Jp Martinez Notice Issued Date-Time: 08/20/2019 19:30 Notice Type: Medicare Outpatient Observation Notice Notice Delivered To: Patient Relationship to Patient: Self Clinical Research Analyst Name: [place] Delivery Method: HAND - Hand Delivered Chantell Days: Prior Verbal Notification: Recipient Understood Notice: Recipient Signature: Yes Med Rec Note Co-signed by Attending: Coverage Notice Comment: FERRERA delivered to and initialized by patient. Original given to patient and also placed on chart. Reviewer: [id number] Jp Jernigan Notice Issued Date-Time: 08/26/2019 9:16 Notice Type: IM Discharge Notice Notice Delivered To: Patient Relationship to Patient: Self Clinical Research Analyst Name: Delivery Method: HAND - Hand Delivered Chantell Days: Prior Verbal Notification: Recipient Understood Notice: Yes Recipient Signature: Yes Med Rec Note Co-signed by Attending: Coverage Notice Comment: IMM explained, signed, given, copy placed in MR Reviewer: [id number] Jp Jernigan Notice Issued Date-Time: 08/26/2019 9:16 Notice Type: Patient Choice Letter Notice Delivered To: Patient Relationship to Patient: Self Clinical Research Analyst Name: Delivery Method: HAND - Hand Delivered Chantell Days: Prior Verbal Notification: Recipient Understood Notice: Yes Recipient Signature: Yes Med Rec Note Co-signed by Attending: Coverage Notice Comment: LEXII Green DP export: 08/26/19 8:15 Patient Name: VISH QUEVEDO Page 38874 at 0922 All edits/amendments must be made on the electronic document DICTATION DATE: 08/26/19921 PUMP INSTALLATION AND SERVICER: DM 08/26/19921 RPT#: [id number] DC DATE: STATUS: ADM IN [facility] [address] [place] [address] END OF REPORT
[2019-08-26] MEDS ORDERED: MUCINEX600 MG PO (10:32)
[2019-08-26] MEDS ORDERED: FLORAJEN3 CAPS460 MG PO (10:32)
[2019-08-26] MEDS ORDERED: LEVAQUIN750 MG PO (10:34)
[2019-08-26] MEDS ORDERED: DIFLUCAN150 MG PO (10:34)
[2019-08-26] MEDS ORDERED: FERROUS SULFAT325 MG PO (10:35)
[2019-08-26] MEDS ORDERED: PROTONIX40 MG PO (10:35)
[2019-08-26] MEDS ORDERED: ELIQUIS5 MG PO (10:36)
--- NOTE | 2019-08-26 10:42 | NUR ---
PATIENT RESTING WITH NO DISTRESS. ANTICIPATES DISCHARGE TODAY, REFUSES TO HAVE IV STARTED AND IV MEDICAIONS. PATIENT IS ALERT AND ORIENTED. CL IN REACH
--- NOTE | 2019-08-26 11:48 | MORECARE ---
CASE MANAGEMENT DISCHARGE SUMMARY PATIENT: VISH QUEVEDO UNIT: [id number] ADM DATE: 08/21/19 AGE: 49 : 66 SEX: M ROOM/BED: D.2226 AUTHOR: TERRI TURCIOS PHYSICIAN: REFERRING PHYSICIAN: NAV NORMAN MD DATE OF SERVICE: 08/26/19 Discharge Plan Patient Name: VISH QUEVEDO Facility: [facility]:[place] : 1970 Planned Disposition: Home with Home Health Anticipated Discharge Date: 08/26/19 Discharge Date: Expected LOS: 5 Initial Reviewer: [email or web address] Initial Review Date: 08/26/2019 Generated: 08/26/19 12:48 pm Comments DCP- Discharge Planning Updated by [email or web address]: Irasema Jernigan on 08/26/19 10:[address] Received discharge order. I called [facility] and they will resume home health, spoke with Juan. Clinical faxed to [facility]. Home today with resumption of [facility]. DCP- Discharge Planning Updated by [id number]: Irasema Jernigan on 08/26/19 8:[address] Patient Name: VISH QUEVEDO Admission Status: ER Accout number: [id number] Admission Date: 08-21-2019 : 1970 Admission Diagnosis:SEPSIS, UNSPECIFIED ORGANISM Attending: NAV NORMAN Current LOS: 5 Anticipated DC Date: 08-26-2019 Planned Disposition: Home with Home Health Primary Insurance: MEDICARE A & B Discharge Planning Comments: CM met with patient to complete initial dc planning assessment, he is alone in the room. CM educated patient on the CM role and verbal consent given by patient to complete assessment. Patient lives at home with his mother, brother and 2 nephews. At discharge patient plans to return and feels this is a safe discharge. CM discussed availability of home health, rehab services, and medical equipment. Patient would like to continue with [facility]. He states they have been sending a nurse to check his Coumadin level. I informed him that the doctor has changed him to Eliquis. He states he or his mom will get the medicine. States his mother, sister and her will pick him up at discharge. CM will continue to follow and will assist as needed with dc plans/needs. Hvac Service Technician: Irasema Jernigan DCPIA - Discharge Planning Initial Assessment Updated by [email or web address]: Irasema Jernigan on 08/26/19 9:13 am * Is the patient Alert and Oriented? Yes * How many steps to enter\exit or inside your home? 0/0 * PCP Dr. Hameed * Pharmacy [facility] * Preadmission Environment Home with Family * ADLs Partial Dependent * Partial ADLs (Assistance needed) Ambulation Bathing Dressing Medication Management * Equipment Cane Hospital Bed * List name and contact numbers for known caregivers / representatives who currently or will assist patient after discharge: Esperanza Quevedo - - [phone] * Community resources currently utilized Home Health * Please name any agencies selected above. [facility] * Additional services required to return to the preadmission environment? No * Can the patient safely return to the preadmission environment? Yes * Has this patient been hospitalized within the prior 30 days at any hospital? No External Providers External Provider: [facility] Next Contact Date: Service Request Date: Service Type: Resolution: Reviewer: Comments: Coverage Notice Reviewer: [id number] Jp Martinez Notice Issued Date-Time: 08/20/2019 19:30 Notice Type: Medicare Outpatient Observation Notice Notice Delivered To: Patient Relationship to Patient: Self Shank Paperer Name: [place] Delivery Method: HAND - Hand Delivered Chantell Days: Prior Verbal Notification: Recipient Understood Notice: Recipient Signature: Yes Med Rec Note Co-signed by Attending: Coverage Notice Comment: FERRERA delivered to and initialized by patient. Original given to patient and also placed on chart. Reviewer: [id number] Jp Jernigan Notice Issued Date-Time: 08/26/2019 9:16 Notice Type: IM Discharge Notice Notice Delivered To: Patient Relationship to Patient: Self Shank Paperer Name: Delivery Method: HAND - Hand Delivered Chantell Days: Prior Verbal Notification: Recipient Understood Notice: Yes Recipient Signature: Yes Med Rec Note Co-signed by Attending: Coverage Notice Comment: IMM explained, signed, given, copy placed in MR Reviewer: [id number] Jp Jernigan Notice Issued Date-Time: 08/26/2019 9:16 Notice Type: Patient Choice Letter Notice Delivered To: Patient Relationship to Patient: Self Shank Paperer Name: Delivery Method: HAND - Hand Delivered Chantell Days: Prior Verbal Notification: Recipient Understood Notice: Yes Recipient Signature: Yes Med Rec Note Co-signed by Attending: Coverage Notice Comment: LEXII for [facility] Last DP export: 08/26/19 8:22 Patient Name: VISH QUEVEDO Page [phone] at 1148 All edits/amendments must be made on the electronic document DICTATION DATE: 08/26/19 114 CAPTAIN OF GUARDS: LOUIS 08/26/19 1148 RPT#: [id number] DC DATE: STATUS: ADM IN [facility] [address] [place] [address] END OF REPORT
--- NOTE | 2019-08-26 13:19 | NUR ---
DISCHARGE INSTRUCTIONS GIVEN WITH PATIENT VOICING UNDERSTANDING. PATIENT TAKEN BY WHEELCHIAR TO PRIVATE CAR BY VOLUNTEER
--- NOTE | 2019-08-28 14:38 | MORECARE ---
CASE MANAGEMENT DISCHARGE SUMMARY PATIENT: VISH QUEVEDO UNIT: [id number] ADM DATE: 08/21/19 AGE: 49 : 66 SEX: M ROOM/BED: D.2226 AUTHOR: TERRI TURCIOS PHYSICIAN: REFERRING PHYSICIAN: NAV NORMAN MD DATE OF SERVICE: 08/28/19 Discharge Plan Patient Name: VISH QUEVEDO Facility: [facility]:[place] : 1970 Planned Disposition: Home with Home Health Anticipated Discharge Date: 08/26/19 Discharge Date: 08/26/2019 Expected LOS: 5 Initial Reviewer: [email or web address] Initial Review Date: 08/26/2019 Generated: 08/28/19 3:38 pm Comments DCP- Discharge Planning Updated by [id number]: Irasema Jernigan on 08/26/19 10:[address] Received discharge order. I called [facility] and they will resume home health, spoke with Juan. Clinical faxed to [facility]. Home today with resumption of [facility]. DCP- Discharge Planning Updated by [email or web address]: Irasema Jernigan on 08/26/19 8:[address] Patient Name: VISH QUEVEDO Admission Status: ER Accout number: [id number] Admission Date: 08-21-2019 : 1970 Admission Diagnosis:SEPSIS, UNSPECIFIED ORGANISM Attending: NAV NORMAN Current LOS: 5 Anticipated DC Date: 08-26-2019 Planned Disposition: Home with Home Health Primary Insurance: MEDICARE A & B Discharge Planning Comments: CM met with patient to complete initial dc planning assessment, he is alone in the room. CM educated patient on the CM role and verbal consent given by patient to complete assessment. Patient lives at home with his mother, brother and 2 nephews. At discharge patient plans to return and feels this is a safe discharge. CM discussed availability of home health, rehab services, and medical equipment. Patient would like to continue with [facility]. He states they have been sending a nurse to check his Coumadin level. I informed him that the doctor has changed him to Eliquis. He states he or his mom will get the medicine. States his mother, sister and her will pick him up at discharge. CM will continue to follow and will assist as needed with dc plans/needs. Agricultural Produce Commission Agent: Irasema Jernigan DCPIA - Discharge Planning Initial Assessment Updated by [email or web address]: Irasema Jernigan on 08/26/19 9:13 am * Is the patient Alert and Oriented? Yes * How many steps to enter\exit or inside your home? 0/0 * PCP Dr. Hameed * Pharmacy [facility] * Preadmission Environment Home with Family * ADLs Partial Dependent * Partial ADLs (Assistance needed) Ambulation Bathing Dressing Medication Management * Equipment Cane Hospital Bed * List name and contact numbers for known caregivers / representatives who currently or will assist patient after discharge: Esperanza Quevedo - - [phone] * Community resources currently utilized Home Health * Please name any agencies selected above. [facility] * Additional services required to return to the preadmission environment? No * Can the patient safely return to the preadmission environment? Yes * Has this patient been hospitalized within the prior 30 days at any hospital? No Coverage Notice Reviewer: [email or web address] Jp Martinez Notice Issued Date-Time: 08/20/2019 19:30 Notice Type: Medicare Outpatient Observation Notice Notice Delivered To: Patient Relationship to Patient: Self Concrete Placement Equipment Operator Name: [place] Delivery Method: HAND - Hand Delivered Chantell Days: Prior Verbal Notification: Recipient Understood Notice: Recipient Signature: Yes Med Rec Note Co-signed by Attending: Coverage Notice Comment: FERRERA delivered to and initialized by patient. Original given to patient and also placed on chart. Reviewer: [id number] Jp Jeringan Notice Issued Date-Time: 08/26/2019 9:16 Notice Type: IM Discharge Notice Notice Delivered To: Patient Relationship to Patient: Self Concrete Placement Equipment Operator Name: Delivery Method: HAND - Hand Delivered Chantell Days: Prior Verbal Notification: Recipient Understood Notice: Yes Recipient Signature: Yes Med Rec Note Co-signed by Attending: Coverage Notice Comment: IMM explained, signed, given, copy placed in MR Reviewer: [id number] Jp Jernigan Notice Issued Date-Time: 08/26/2019 9:16 Notice Type: Patient Choice Letter Notice Delivered To: Patient Relationship to Patient: Self Concrete Placement Equipment Operator Name: Delivery Method: HAND - Hand Delivered Chantell Days: Prior Verbal Notification: Recipient Understood Notice: Yes Recipient Signature: Yes Med Rec Note Co-signed by Attending: Coverage Notice Comment: [facility] for [facility] Last DP export: 08/26/19 10:48 Patient Name: VISH QUEVEDO Page 81881 at 1438 All edits/amendments must be made on the electronic document DICTATION DATE: 08/28/191437 COSMETOLOGY PROFESSOR: LOUIS 08/28/191437 RPT#: [id number] DC DATE:08/26/19 STATUS: DIS IN [address] [place] [address] END OF REPORT
== END 2019-08-26 13:20 | disposition home health service (06) | DRG 871 ==
LOC: D.ER 15:28 → OBSVTIME 18:41 → D.MS 18:41
PROVIDERS: Emergency Medicine; Family Medicine; ADMIT Internal Medicine Nephrology; ATTEND Internal Medicine Nephrology
DX: A41.9 Sepsis, unspecified organism (principal); J18.9 Pneumonia, unspecified organism; E43 Unspecified severe protein-calorie malnutrition; I50.22 Chronic systolic (congestive) heart failure; J44.0 Chronic obstructive pulmonary disease with (acute) lower respiratory infection; Z68.1 Body mass index [BMI] 19.9 or less, adult; H92.23 Otorrhagia, bilateral; R79.1 Abnormal coagulation profile; Z79.01 Long term (current) use of anticoagulants; D64.9 Anemia, unspecified; I11.0 Hypertensive heart disease with heart failure; E11.9 Type 2 diabetes mellitus without complications; M54.9 Dorsalgia, unspecified; M19.90 Unspecified osteoarthritis, unspecified site; E83.42 Hypomagnesemia; E83.39 Other disorders of phosphorus metabolism; I35.0 Nonrheumatic aortic (valve) stenosis; I34.0 Nonrheumatic mitral (valve) insufficiency

== ENCOUNTER 2019-09-17 08:50 | Inpatient (IN) | payer MEDICARE ==
[~2019-09-17] VITALS: Ht 190.5 cm; Wt 65.0 kg
[2019-09-17] VITALS (60 sets, daily range): BP systolic 68–165; BP diastolic 25–102; BMI 15.7
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
[~2019-09-17 08:50] MED LIST changes: +BUTRANS1 EAC2 TRANSDERM; +CARVEDILOL TAB 3.1 PO; +DIFLUCAN150 MG PO; +ELIQUIS5 MG PO; +FERROUS SULFAT325 MG PO; +FLORAJEN3 CAPS460 MG PO; +MUCINEX600 MG PO; +PROTONIX40 MG PO
[2019-09-17 09:14] LABS: BASOPHILS 0.2 % (0-2); EOSINOPHILS 2.8 % (0-7); HEMATOCRIT 36.5 % (42.0-54.0); HEMOGLOBIN 11.4 g/dL (13.5-17.5); IMMATURE GRANULOCYTES 0.4 % (0-5); LYMPHOCYTES 19.1 % (15-50); MCH 29.3 pg (26.0-34.0); MCHC 31.2 g/dL (31.0-37.0); MCV 93.8 fL (80.0-100.0); MEAN PLATELET VOLUME 10.6 fL (7.4-10.4); MONOCYTES 2.3 % (2-11); NEUTROPHILS 75.2 % (40-80); RBC 3.89 10x6/uL (4.20-6.10); RDW 17.1 % (11.5-14.5); WBC 11.3 10x3/uL (4.8-10.8)
[2019-09-17 09:16] LABS: PLATELET COUNT 218 10x3/uL (130-400)
--- NOTE | 2019-09-17 09:22 | NUR ---
LACTATED RINGERS HANGING ON ARRIVAL PER EMS, CONTINUED BOLUS WHICH IS COMPLETE AT THIS TIME FOR A BOOK SALESMAN TOTAL OF 1000 ML.
[2019-09-17 09:26] LABS: APTT 32.5 SECONDS (22.8-39.4); INR 1.3 (0.85-1.17); PROTIME 15.7 SECONDS (11.6-15.0)
[2019-09-17 09:59] LABS: CALC OSMOLALITY 272 mosm/kg (275-300); CALCIUM 8.2 mg/dL (8.5-10.1); CARBON DIOXIDE 17.9 mmol/L (21.0-32.0); CHLORIDE - SERUM 100 mmol/L (98-107); CREATININE - SERUM 2.1 mg/dL (0.6-1.3); GLUCOSE 76 mg/dL (74-106); POTASSIUM - SERUM 3.8 mmol/L (3.5-5.1); SODIUM 134 mmol/L (136-145); UREA NITROGEN 28 mg/dL (7-18); eGFR NON AFRICAN AMERICAN 35 mL/min (90-120)
--- NOTE | 2019-09-17 10:00 | NUR ---
HOLDING MORPHINE AT THIS TIME DUE TO BP 72/44, ER PROVIDER NOTIFIED, PT PAIN MADE BETTER WITH POSITION CHANGE.
[2019-09-17 10:14] LABS: ALBUMIN 2.3 g/dL (3.4-5.0); ALKALINE PHOSPHATASE 88 U/L (46-116); ALT (SGPT) 17 U/L (10-68); BILIRUBIN - TOTAL 0.44 mg/dL (0.2-1.3); CKMB 1.6 U/L (0.0-3.6); CREATINE KINASE 115 UL (21-232); PROTEIN - SERUM 5.6 g/dL (6.4-8.2)
[2019-09-17 10:15] LABS: TROPONIN-I < 0.017 ng/mL (0.000-0.060)
[2019-09-17 11:07] LABS: APPEARANCE TURBID (CLEAR); BACTERIA MODERATE /hpf (NEGATIVE); BILIRUBIN NEGATIVE (NEGATIVE); COLOR DARK ORANGE (YELLOW); EPITHELIAL CELLS 0-5 /hpf (0-5); GLUCOSE NEGATIVE (NEGATIVE); KETONE NEGATIVE (NEGATIVE); NITRITE NEGATIVE (NEGATIVE); PROTEIN 2+ mg/dL (NEGATIVE); RED CELLS - URINE >50 /hpf (0-5); SPECIFIC GRAVITY 1.015 (1.005-1.020); UROBILINOGEN NORMAL (NORMAL)
[2019-09-17 11:08] LABS: MUCUS <1+ /lpf (NONE SEEN); YEAST >1+ WITH HYPHAE /hpf (NONE SEEN)
--- NOTE | 2019-09-17 11:15 | NUR ---
UNABLE TO OBTAIN AN ACCURATE AND RELIABLE O2 SAT WITH GOOD PLETH FORMATION USING ALL FINGERS WELL AN EAR PROBE, PLACED PATIENT ON 2L O2 VIA NC.
--- NOTE | 2019-09-17 13:08 | NUR ---
SPOKE WITH DR ARIAS REGARDING PT BP TRENDS (SEE VS) AND RECEIVED ORDER FOR LEVOPHED TO TITRATE, CALLED MARIA ELENA AND INFORMED HIM OF THIS, HE WILL PULL MED AND INITIATE IN THE ICU.
--- NOTE | 2019-09-17 14:23 | NUR ---
SPOKE WITH DR BACON ABOUT THE PT BEING HYPOTENSIVE AND IN AFIB. OK TO PLACE FC, CONSULT DR ROE, CONSULT DR MOHR FOR CENTRAL LINE PLACEMENT. DR MOHR CALLED AND NOTIFIED. ATTEMPTED TO CONTACT THE MOTHER BUT NO ONE ANSWERED. AWAITING FOR DR ROE TO PAGE BACK FOR CONSULT.
--- NOTE | 2019-09-17 15:07 | NUR ---
DR MOHR AT THEM PTS BEDSIDE. DR MOHR ATTEMPTED RIGHT AND LEFT SUBCLAVIAN WITH NO SUCCESS. HE WAS ABLE TO PLACE A CENTRAL LINE VIA RIGHT GROIN. DR MOHR ORDERED A CXR. WILL CONT POC.
--- NOTE | 2019-09-17 15:44 | NUR ---
FC INSERTION COMPLETED USING STERILE TECHNIQUE. DARK TEA COLORED URINE RETURN NOTED. NEW IV TUBING AND DRUGS USED FOR NEW CVL. RADIOLOGY CALLED TO REMIND ABOUT CXR.
--- NOTE | 2019-09-17 16:09 | NUR ---
DR ROE PAGED AGAIN.
--- NOTE | 2019-09-17 17:32 | NUR ---
PT IN A NSR/TACH 90-110. AMIODORONE HAS NOT BEEN GIVEN YET. DR MALAVE REGARDING GIVING THE AMIODORONE. WILL WAIT.
[2019-09-17 17:48] LABS: % SATURATION 4 % (15-55); IRON 8 ug/dl (35-150); TOTAL IRON BIND CAPACITY 163 ug/dl (260-445); UNSAT IRON BIND CAPACITY 155 ug/dl (150-375)
--- NOTE | 2019-09-17 17:48 | NUR ---
SPOKE WITH DR ROE. LIANA BOLUS BUT CONTINUE THE REGULAR AMIO GTT.
--- NOTE | 2019-09-17 18:26 | NUR ---
BRAXTON HERNÁNDEZ AT THE PTS BEDSIDE. PT HYPOTENSIVE. 1000ML BOLUS NOW.
--- NOTE | 2019-09-17 19:15 | NUR ---
PT AWAKE WITH EYES OPEN, LUNGS CLEAR, 02 @ 4L VIA N/C, GRUNTING WITH SHALLOW RESPIRATIONS, FOLLOWS COMMANDS, RIGHT FEMORAL CVL INTACT WITH NS BOLUS UNFUSING, D5LR @ 100 CC/HR LEVOPHED GTT AND AMIODARONE GTT INFUSING, PALMA PATENT TO BSD WITH DARK URINE, UNABLE TO OBTAIN GOOD WAVEFORM FOR SPO2, B/P VERIFIED WITH DOPPLER, MICHAEL HERNÁNDEZ SECURITY DELIVERY SPECIALIST PRESENT
[2019-09-17 19:52] LABS: BASOPHILS 0.2 % (0-2); EOSINOPHILS 4.4 % (0-7); HEMATOCRIT 29.8 % (42.0-54.0); HEMOGLOBIN 9.3 g/dL (13.5-17.5); IMMATURE GRANULOCYTES 0.2 % (0-5); LYMPHOCYTES 16.7 % (15-50); MCH 28.9 pg (26.0-34.0); MCHC 31.2 g/dL (31.0-37.0); MCV 92.5 fL (80.0-100.0); MEAN PLATELET VOLUME 9.5 fL (7.4-10.4); MONOCYTES 2.5 % (2-11); PLATELET COUNT 177 10x3/uL (130-400); RBC 3.22 10x6/uL (4.20-6.10); RDW 16.8 % (11.5-14.5)
[2019-09-17 20:02] LABS: ANION GAP 15.3 mmol/L (8-16); CALCIUM 7.3 mg/dL (8.5-10.1); CARBON DIOXIDE 18.4 mmol/L (21.0-32.0); CREATININE - SERUM 1.9 mg/dL (0.6-1.3); POTASSIUM - SERUM 3.7 mmol/L (3.5-5.1)
--- NOTE | 2019-09-17 20:30 | NUR ---
CALLED DR RODRÍGUEZ FOR CONSULT, REVIEWED PT, ORDERS RECIEVED
--- NOTE | 2019-09-17 21:30 | NUR ---
DR KAREEM CLEMENS, INFORMED OF CONSULT, REVIEWED PT, ORDERS RECIEVED,
--- NOTE | 2019-09-17 23:00 | NUR ---
PT SLEEPING, AROUSES EASILY AND BEGINS MOANING WITH RESPIRATIONS, LAB DRAWN FROM RIGHT FEM CVL
[2019-09-17 23:19] LABS: CARBON DIOXIDE 21.8 mmol/L (21.0-32.0); CREATININE - SERUM 1.5 mg/dL (0.6-1.3); POTASSIUM - SERUM 3.8 mmol/L (3.5-5.1)
[2019-09-17 23:21] LABS: CALCIUM 6.9 mg/dL (8.5-10.1)
[2019-09-17 23:49] LABS: ALBUMIN 1.7 g/dL (3.4-5.0)
[2019-09-18] VITALS (75 sets, daily range): BP systolic 37–130; BP diastolic 20–113; Ht 190.5 cm; Wt 65.0 kg
--- NOTE | 2019-09-18 01:00 | NUR ---
PT REMAINS SEDATED, VITALS STABLE, PALMA EMPTIED 2750 CC, WILL CONT TO MONITOR
--- NOTE | 2019-09-18 01:00 | NUR ---
PT AWAKE, MOANING, REPOSTIONED FOR COMFORT, PT KEEPS MOVING ARM, DIFFICULT TO OBTAIN ACCURATE B/P, REMAIN UNABLE TO GET WAVEFORM FOR SPO2, WILL CONT TO MONITOR
--- NOTE | 2019-09-18 03:00 | NUR ---
PT REMAINS AWAKE, MOANING, C/O GENERALIZED PAIN, SKIN MOTTLED, HAD SMALL BM X1, CLEANED PER STAFF
--- NOTE | 2019-09-18 03:50 | NUR ---
PT QUIET, HR DROPPED TO 70'S, CALLED CHARGE NURSE TO UNIT
--- NOTE | 2019-09-18 04:00 | NUR ---
PT UNRESPONSIVE, UNABLE TO OBTAIN A PULSE, PUPILS 5 AND NONREACTIVE, MURRAY MONCADA CALLED AND CPR INITIATED, DR RODRÍGUEZ NOTIFIED OF CURRENT SITUATION
--- NOTE | 2019-09-18 04:15 | NUR ---
ESCAPEMENT MAKER ATTEMPTED TO CONTACT FAMILY WITHOUT SUCCESS
[2019-09-18 04:27] LABS: BASOPHILS 0.2 % (0-2); EOSINOPHILS 0.1 % (0-7); HEMATOCRIT 27.9 % (42.0-54.0); HEMOGLOBIN 8.5 g/dL (13.5-17.5); IMMATURE GRANULOCYTES 2.8 % (0-5); LYMPHOCYTES 11.9 % (15-50); MCHC 30.5 g/dL (31.0-37.0); MCV 95.2 fL (80.0-100.0); MONOCYTES 4.3 % (2-11); NEUTROPHILS 80.7 % (40-80); PLATELET COUNT 168 10x3/uL (130-400); RBC 2.93 10x6/uL (4.20-6.10); RDW 16.8 % (11.5-14.5); WBC 14.8 10x3/uL (4.8-10.8)
--- NOTE | 2019-09-18 04:35 | NUR ---
ANESTHESIA HERE TO INTUBATE PT, INTUBATION SUCCESSFUL
[2019-09-18 04:43] LABS: INR 2.29 (0.85-1.17); PROTIME 24.5 SECONDS (11.6-15.0)
[2019-09-18 04:55] LABS: ALBUMIN 1.4 g/dL (3.4-5.0); ANION GAP 25.3 mmol/L (8-16); BILIRUBIN - TOTAL 0.14 mg/dL (0.2-1.3); MAGNESIUM - SERUM 1.3 mg/dL (1.8-2.4); PHOSPHOROUS 6.7 mg/dL (2.5-4.9); POTASSIUM - SERUM 4.3 mmol/L (3.5-5.1); VANCOMYCIN - RANDOM 7.1 ug/mL (10.0-20.0)
--- NOTE | 2019-09-18 05:00 | NUR ---
ATTEMPTED TO CALL PT MOTHER AGAIN, CALLS GO TO [employer] WITH MAILBOX FULL, PT REMAINS CRITICAL, ON VENT A/C RATE 20, FIO2 100%, WILL CONT TO MONITOR
[2019-09-18 05:01] LABS: CALCIUM 6.9 mg/dL (8.5-10.1); CREATININE - SERUM 2.2 mg/dL (0.6-1.3); PROTEIN - SERUM 3.7 g/dL (6.4-8.2)
--- NOTE | 2019-09-18 07:25 | NUR ---
REPORT RECEIVED. PT HAS RIGHT GROIN WITH LR AT 100ML/HR, BICARB AT 150ML/HR, ANDREA AT 1MCG/KG/MIN, VASOPRESSIN AT 0.4 UNITS/HR, DOPAMINE AT 15MCG, AND LEVOPHED AT 30MCG. CURRENT BP IS 114/66 WITH MAP OF 72. HR 138. PT HAS MOTTLED LOWER EXTREMITIES. NO PULSE FELT IN FEET BILATERALLY. PT HAS PALMA. HE IS IN SOFT WRIST RESTRAINTS. PT IS INTUBATED WITH RATE OF 20, TV OF 500, ON 100% FIO2, AND PEEP OF 5. ETT 7.5 AT 25CM.
--- NOTE | 2019-09-18 09:08 | NUR ---
CVP 14. HR 140. SEE IV FLOWSHEET FOR DRIPS.
--- NOTE | 2019-09-18 09:17 | NUR ---
RT IN TO GET ABG.
--- NOTE | 2019-09-18 09:41 | NUR ---
DOPPLED OF 118 IN LEFT BRACHIAL.
--- NOTE | 2019-09-18 09:53 | NUR ---
NOTIFIED MOTHER OF PT'S STATUS. INFORMED HER PT WAS NOT BREATHING WELL AND THAT HE HAS A TUBE BREATHING FOR HIM. STATED SHE WAS TRYING TO FIND TRANSPORTATION TO GET UP HERE. SPOKE WITH DR RODRÍGUEZ REGARDING PT'S LOW BP AND MAP AND CURRENT HEART RATE. FLUID BOLUS BEING GIVEN AT THIS TIME. STATED HE WOULD BE ROUNDING ON THIS PT SOON. WILL CONTINUE TO MONITOR.
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
--- NOTE | 2019-09-18 11:33 | NUR ---
PT'S MOTHER, BROTHER, AND SISTER ARE AT BEDSIDE. ECHO DONE. PT MOTTLED.
--- NOTE | 2019-09-18 12:20 | NUR ---
DR RODRÍGUEZ SPOKE WITH PT'S MOM AND REST OF FAMILY. PT TO BE ONLY A MED CODE. NO SHOCK OR COMPRESSIONS. MOTHER VERBALIZES CONSENT AND UNDERSTANDING.
--- NOTE | 2019-09-18 13:58 | NUR ---
BROTHER AND SISTER IN LAW AT BEDSIDE. DISCUSSED PT STATUS. PRESSORS INFUSING. IV TO RIGHT HAND INFILTRATED AND BLEEDING. REMOVED WITH CATHETER TIP INTACT. PRESSURE APPLIED AND WRAPPED WITH GAUZE. WILL CONTINUE TO MONITOR.
--- NOTE | 2019-09-18 15:46 | NUR ---
DOPPLER SYSTOLIC PRESSURE 88.
--- NOTE | 2019-09-18 17:07 | NUR ---
FAMILY AT BEDSIDE. BP 114/72 WITH HR OF 128. I AND OS DONE AT 1600. OUTPUT 700 IN PALMA.
--- NOTE | 2019-09-18 17:40 | NUR ---
DR SERNA IN WITH PT'S FAMILY. DISCUSSED WITH PT'S SISTER TO BRING IN PT'S MOTHER TO DISCUSS PULLING BACK ON THE PRESSORS AND DISCUSS THE POOR PROGNOSIS.
--- NOTE | 2019-09-18 18:59 | NUR ---
PT MOTHER, BROTHER, AND SISTER ARRIVED TO UNIT. DR SERNA SPOKE REGARDING POOR PROGNOSIS. MOTHER VERBALIZED CONSENT TO START WITHDRAWING CARE. MORPHINE AND ATIVAN ORDERED.
--- NOTE | 2019-09-18 19:39 | NUR ---
SPOKE WITH PT MOTHER, FAMILY READY TO START WITHDRAWING CARE, GIVEN VERSED 2 MG AND MORPHINE 2 MG IVP, DISCONTINUED IV PRESSORS, FAMILY AT BEDSIDE
--- NOTE | 2019-09-18 20:05 | NUR ---
PAGED DR RODRÍGUEZ TO INFORM OF WITHDRAWAL OF CARE
--- NOTE | 2019-09-18 20:10 | NUR ---
PT , CALLED DR BACON TO GET PT PRONOUNCED, FAMILY AT BEDSIDE
--- NOTE | 2019-09-18 20:27 | NUR ---
DR PINEDA HERE TO PRONOUNCE PT, FAMILY PRESENT, VENT TURNED OFF, CALLED [facility], PT DECLINED FOR DONATION DUE TO SEPSIS
--- NOTE | 2019-09-18 20:35 | NUR ---
FAMILY STEPPED OUT TO WAITING AREA, PERFORMED POST MORTEM CARE, PT CLEANED AND LINENS CHANGED
--- NOTE | 2019-09-18 20:50 | NUR ---
FAMILY RETURNED TO BEDSIDE, HOME CALLED FOR PICKUP
--- NOTE | 2019-09-21 11:13 | EC ---
PATIENT:VISH PRASAD DATE OF SERVICE: 09/17/19 SEX: M MEDICAL RECORD: [id number] DATE OF : 66 LOCATION:[place] [id number] AGE OF PATIENT: 49 ADMISSION DATE: 09/17/19 REFERRING PHYSICIAN: INTERPRETING PHYSICIAN: TOYA CASSIDY MD ECHOCARDIOGRAM REPORT ECHO CHARGES 4 ECHO COMPLETE Date: 09/18/19 CLINICAL DIAGNOSIS: CODE BLUE, CHECKING FOR HEART FUNCTION ECHOCARDIOGRAPHIC MEASUREMENTS (adult normal given) AC root (d.<3.7cm) 3.4 cm LV Septum d (<1.2 cm> 0.5 cm Valve Excursion 1.6 cm LV Septum (systole) 0.6 cm Left Atria (s.<4.0cm> 3.2 cm LVPW d(<1.2cm) 0.7 cm RV (d.<2.3cm) 3.1 cm LVPW (sytole) 0.8 cm LV diastole(<5.6CM) 4.5 cm MV E-F(>70mm/sec) cm LV systole 4.2 cm LVOT Diameter 2.0 cm MV exc.(>10mm) cm Est.ejection fraction (50-75%) % DOPPLER: LVIT cm/sec A 44 cm/sec E 59 cm/sec LA cm/sec RVSP 42.1 mmHg LVOT 56 cm/sec AOP1/2T m/s Asc. Ao 214 cm/sec RVOT 89 cm/sec RA cm/sec PA 82 cm/sec AV Gradient Peak 18.3 mmHg AV Mean 10.3 mmHg AV Area 0.5 cm MV Gradient Peak 2.8 mmHg MV Mean 1.3 mmHg MV Area cm COMMENTS: Mercantile Reporter: Christofer MARIE New Client Banking Services Clerk: 3 Dr. Truong TAPE# PACS Pericardial Effusion N DATE OF SERVICE: ECHOCARDIOGRAM FINDINGS: 1. Left ventricular chamber size is dilated. Left ventricular systolic function is markedly reduced at 5-10%. 2. Left atrium, right atrium, and right ventricular chamber sizes are upper limits of normal. 3. Valvular structures have normal structure and motion. ECHOCARDIOGRAM REPORT [id number] VISH PRASAD 4. Doppler interrogation reveals mild mitral regurgitation, [id number] tricuspid regurgitation, no other valvular insufficiency or stenosis. Pulmonary systolic pressure is elevated estimated at 42 mmHg. 5. No evidence of pericardial effusion or left ventricular thrombus. TRANSINT:[id number] Voice Confirmation ID: [id number] DOCUMENT ID: [id number] TOYA CASSIDY MD at 1113 CC: [id number] DICTATION DATE: 09/18/19 1208 ELECTRIC SCREW DRIVER OPERATOR: 09/18/19 1527 DIS IN 09/18/19 [facility] [address] [place] [id number]
== END 2019-09-18 20:27 | DRG 871 ==
LOC: D.ER 08:50 → D.ICU 12:49
PROVIDERS: Emergency Medicine; Family Medicine; Internal Medicine; ADMIT Emergency Medicine; ATTEND Emergency Medicine
PROC: 06HY33Z Insertion of Infusion Device into Lower Vein, Percutaneous Approach (ICD-10-PCS; 2019-09-17)
PROC: 5A1935Z Respiratory Ventilation, Less than 24 Consecutive Hours (ICD-10-PCS; principal; 2019-09-18)
PROC: 0BH17EZ Insertion of Endotracheal Airway into Trachea, Via Natural or Artificial Opening (ICD-10-PCS; 2019-09-18)
DX: A41.9 Sepsis, unspecified organism (principal); R65.21 Severe sepsis with septic shock; R40.2124 Coma scale, eyes open, to pain, 24 hours or more after hospital admission; R40.2344 Coma scale, best motor response, flexion withdrawal, 24 hours or more after hospital admission; R40.2214 Coma scale, best verbal response, none, 24 hours or more after hospital admission; I50.23 Acute on chronic systolic (congestive) heart failure; N17.0 Acute kidney failure with tubular necrosis; E87.2 Acidosis; B37.49 Other urogenital candidiasis; F17.203 Nicotine dependence unspecified, with withdrawal; E87.1 Hypo-osmolality and hyponatremia; G93.1 Anoxic brain damage, not elsewhere classified; J44.1 Chronic obstructive pulmonary disease with (acute) exacerbation; J84.10 Pulmonary fibrosis, unspecified; Z86.711 Personal history of pulmonary embolism; Z79.01 Long term (current) use of anticoagulants; R00.0 Tachycardia, unspecified; I11.0 Hypertensive heart disease with heart failure; M19.90 Unspecified osteoarthritis, unspecified site; E11.65 Type 2 diabetes mellitus with hyperglycemia; E83.42 Hypomagnesemia; E83.51 Hypocalcemia; I34.0 Nonrheumatic mitral (valve) insufficiency